=== PATIENT | male | born 1995 | race Caucasian/White ===

== ENCOUNTER 2019-11-30 11:44 | Emergency (ER) | payer OTHER, MEDICAID, SELFPAY ==
[2019-11-30 11:56] VITALS: BP 136/96; PULSE 85; RESP 18; TEMP 37.1; O2SAT 97; BMI 24.4
--- NOTE | 2019-11-30 12:09 | ED_ITS ---
HPI - Chest Pain <PATRICA Iverson - Last Filed: 11/30/19 13:27> General Chief Complaint: Chest Pain Stated Complaint: Heart Hurts Time Seen by Provider: 11/30/19 11:53 Source: patient Mode of arrival: Ambulatory Limitations: no limitations History of Present Illness HPI narrative: This is a 24 year male, smoker, presents to ED with nonradiating left lateral chest pain which initially started this morning at 10. Patient reports initially the pain started about 6 months ago when he was in assisted. Then, he had EKG and director of cardiac rehabilitation test done. Patient reports constant sharp pain deep inside his chest with short of breath. Patient denies cold sweats, nausea or vomiting. Patient reports nothing aggravates or improved pain. 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 Patient also reports he just return from [place] working 6 weeks under high stress and dangerous situation. He has been drinking heavy amount of hard liquor daily to cope with this but denies drinking alcohol today. Patient was offered Suboxone therapy while in assisted which she declined but now he is interested in therapy that can help him from drinking excessively or going back to using drugs. Related Data Previous Rx's Medication Instructions Recorded valacyclovir 1,000 mg PO Q12H #20 tab 12/21/16 Allergies Allergy/AdvReac Type Severity Reaction Status Date / Time No Known Drug Allergies Allergy Verified 11/30/19 12:04 Review of Systems <PATRICA Iverson - Last Filed: 11/30/19 13:27> Review of Systems Narrative: General: Denies fever, chills, fatigue, malaise, sweats. HEENT: Denies sinus pain, ear pain, sore throat, difficulty swallowing, dizziness. Respiratory: Denies (+) SOB and dyspnea, cough, wheezing, hemoptysis, sputum. Cardiovascular: The HPI Gastrointestinal: Denies nausea, vomiting, abdominal pain, diarrhea, c onstipation, melena. : Denies dysuria, frequency, incontinence, hematuria, urinary retention. Musculoskeletal: Denies weakness, joint pain or bony pain. Skin: Denies rash, skin lesions, or other. Neurologic: Denies weakness, headache, numbness, change in speech, confusion, seizures, incoordination. Psychiatric: No concerning psychosocial issues. 12-point review of systems is negative except for those stated above. Patient History <PATRICA Iverson - Last Filed: 11/30/19 13:27> Social History Smoking Status: Never smoker Smoking Status: Never smoker alcohol intake frequency: 3 or more drinks per day Alcohol type: hard liquor Substance Use Type: former substance user Exam <PATRICA Iverson - Last Filed: 11/30/19 13:27> Narrative Exam Narrative: GEN: Alert, oriented x 3, well appearing and nourished, tearful and anxious. Head: Normal cephalic, atraumatic. No scalp or temporal tenderness, palpable mass or rash. EYES: Pupils are equal, round, and reactive to light and accommodation. Extraocular muscles are intact bilaterally. There is no subconjunctival hemorrhage, exudate and sclera non-icteric. ENT: Hearing grossly intact. Mucous membrane moist, no mucosal lesion. Throat without erythema, tonsillar hypertrophy or exudate. Uvula in midline, airway patent. Neck: Trachea in midline. No JVD, non-tender without lymphadenopathy. No masses or thyroid megaly. Supple, non-tender and no meningeal signs. CARDIAC: Normal regular rate and rhythm without murmurs, gallops, or rubs. Quick transition from tachycardia to normal SR when crying and relaxing. No chest wall tenderness. No peripheral edema, cyanosis or pallor. Capillary refill is less than 2 seconds. RESPIRATORY: Lungs are clear to auscultate bilaterally. No cough, wheezes, rales, or rhonchi. No stridor, respiratory distress, increase work of breat felicita, or accessary muscle used. ABD: Abdomen soft, nontender and non-distended. No guarding or rebound tenderness to palpate. Bowel sounds are normal in all 4 quadrants. There is no palpable masses or organomegaly. EXT: Full painless ROM of all extremities with no loss of sensation, strength, effusion or edema. SKIN: Warm, dry, normal color for patient. No erythema, lesions or rash over visible areas. BACK: Nontender without deformity or crepitance. No flank tenderness. NEUROLOGICAL: Alert and oriented to place, time and person. Sensation and motor function intact bilaterally. No facial droops, dysphasia. PSYCHIATRIC: Good judgement and reason, without hallucinations, abnormal affect or abnormal behaviors during the examination. Frequently Anxious and tearful. Patient is not suicidal. Initial Vital Signs Initial Vital Signs: Vital Signs Temperature 98.8 F 11/30/19 11:56 Pulse Rate 85 11/30/19 11:56 Respiratory Rate 18 11/30/19 11:56 Blood Pressure 136/96 H 11/30/19 11:56 Pulse Oximetry 97 11/30/19 11:56 <Sharon Smith DO - Last Filed: 11/30/19 17:48> Initial Vital Signs Initial Vital Signs: Vital Signs Temperature 98.8 F 11/30/19 11:56 Pulse Rate 85 11/30/19 11:56 Respiratory Rate 18 11/30/19 11:56 Blood Pressure 136/96 H 11/30/19 11:56 Pulse Oximetry 97 11/30/19 11:56 Scores <CARLOS IversonP - Last Filed: 11/30/19 13:27> GCS L[place] coma scale eye opening: Spontaneous [place] coma scale verbal response: Orientated [place] coma scale motor response: Obey commands [place] coma scale total score: 15 HEART Score Heart Score history: Slightly Suspicious Heart Score EKG: Normal Heart Score Age: < 45 years old Heart Score risk factors: 1-2 risk factors Heart Score troponin: < or = to normal limit Heart Score Total: 1 Course <CARLOS IversonP - Last Filed: 11/30/19 13:27> Orders Ordered: ED Orders 11/30/19 11:50 EKG-12 Lead Routine 11/30/19 11:57 Complete Blood Count AUTO DIFF Stat Comprehensive Metabolic Panel Stat D Dimer Stat Lipase Stat Partial Thromboplastin Time Stat Prothrombin Time INR Stat Troponin & CK Cardiac Panel Stat 11/30/19 12:08 XR chest 1V Stat Discontinued Medications Sodium Chloride (Normal Saline 0.9%) 1,000 mls @ 999 mls/hr IV BOLUS ONE Stop: 11/30/19 13:09 Last Infusion: 11/30/19 13:13 Dose: 0 mls/hr Documented by: Admin: 11/30/19 12:29 Dose: 999 mls/hr Documented by: ERIC Pantoprazole Sodium (Protonix) 40 mg IV NOW ONE Stop: 11/30/19 12:09 Last Admin: 11/30/19 12:26 Dose: 40 mg Documented by: ERIC Vital Signs Vital signs: Vital Signs - 8 hr 11/30/19 11:56 11/30/19 13:15 Temperature 98.8 F 98.1 F Pulse Rate 85 87 Respiratory Rate 18 16 Blood Pressure 136/96 H 125/57 L Pulse Oximetry 97 100 <Sharon Smith DO - Last Filed: 11/30/19 17:48> Orders Ordered: ED Orders 11/30/19 11:50 EKG-12 Lead Routine 11/30/19 11:57 Complete Blood Count AUTO DIFF Stat Comprehensive Metabolic Panel Stat D Dimer Stat Lipase Stat Partial Thromboplastin Time Stat Prothrombin Time INR Stat Troponin & CK Cardiac Panel Stat 11/30/19 12:08 XR chest 1V Stat Discontinued Medications Sodium Chloride (Normal Saline 0.9%) 1,000 mls @ 999 mls/hr IV BOLUS ONE Stop: 11/30/19 13:09 Last Infusion: 11/30/19 13:13 Dose: 0 mls/hr Documented by: Admin: 11/30/19 12:29 Dose: 999 mls/hr Documented by: ERIC Pantoprazole Sodium (Protonix) 40 mg IV NOW ONE Stop: 11/30/19 12:09 Last Admin: 11/30/19 12:26 Dose: 40 mg Documented by: ERIC Vital Signs Vital signs: Vital Signs - 8 hr 11/30/19 11:56 11/30/19 13:15 Temperature 98.8 F 98.1 F Pulse Rate 85 87 Respiratory Rate 18 16 Blood Pressure 136/96 H 125/57 L Pulse Oximetry 97 100 MDM - Chest Pain <PATRICA Iverson - Last Filed: 11/30/19 13:27> Differential Diagnosis Differential diagnosis: Likely atypical chest pain, st elevation myocardial infarction, costochondritis and other (Pancreatitis, anxiety, PE, pneumonia) Medical Records Data Attestation: I reviewed the patient's medical records. Lab Data Attestation: I reviewed the patient's lab results. Result diagrams: 11/30/19 11:57 11/30/19 11:57 Labs: Lab Results 11/30/19 11/30/19 11/30/19 Range/Units 11:57 11:57 11:57 WBC 7.5 (4.5-11.0) X10^3/uL RBC 5.84 (4.5-5.9) X10^6/uL Hgb 18.6 H (13.5-17.5) g/dL Hct 52.7 (41-53) % MCV 90.2 (80-100) fL MCH 31.9 (26-34) PG MCHC 35.3 (30-36) % RDW 13.1 (11.6-14.8) % Plt Count 294 (150-400) X10^3/uL Neut % (Auto) 72.2 (50-75) % Lymph % (Auto) 18.0 L (25-40) % [place] % (Auto) 6.8 (3-14) % Eos % (Auto) 2.5 (2-4) % Baso % (Auto) 0.5 (0-2) % Neut # (Auto) 5400 (9426-6127) /uL Lymph # (Auto) 1400 (4060-3462) /uL [place] # (Auto) 500 (0-900) /uL Eos # (Auto) 200 (0-450) /uL Baso # (Auto) 0 (0-100) /uL PT 10.4 (10.1-12.7) SECONDS INR 0.9 (0.9-1.3) APTT 30 (26.4-36.2) SECONDS D-Dimer < 200 (<230) ng/mL Sodium 137 (137-145) mmol/L Potassium 4.3 (3.4-5.1) mmol/L Chloride 102 (98-107) mmol/L Carbon Dioxide 22 (22-32) mmol/L BUN 20 (9-20) mg/dL Creatinine 0.99 (0.66-1.25) mg/dL Estimated GFR > 60.0 (>60) mL/min BUN/Creatinine Ratio 20.2 (6-22) Glucose 112 H (70-100) mg/dL Calcium 9.6 (8.4-10.2) mg/dL Total Bilirubin 0.9 (0.2-1.3) mg/dL AST 40 (17-59) IU/L ALT 33 (<50) IU/L Alkaline Phosphatase 70 (38-126) U/L Total Creatine Kinase 201 H (55-170) U/L CK-MB (CK-2) 2.25 (<2.37) ng/mL CK-MB (CK-2) Rel Index 1.1 L (1.5-5.0) % Troponin I < 0.012 (0.01-0.034) ng/mL Total Protein 8.4 H (6.3-8.2) g/dL Albumin 5.1 H (3.5-5.0) g/dL Globulin 3.3 (1.7-4.1) g/dL Albumin/Globulin Ratio 1.5 (1.0-2.8) Lipase 105 (23-300) U/L Imaging Data Chest x-ray: Radiologist's Impression: [address] [address] XRay Report Signed Patient: Fariha Lundberg [facility]#: [id number] : 1995Acct:[id number] Age/Sex: 24 / MDate of Service: 11/30/19 Loc: ED Accession Number: [id number] Procedure: XR chest 1V Ordering Provider: Paul Vera PROCEDURE: XR CHEST 1V INDICATIONS: chest pain TECHNIQUE: One view of the chest was acquired. COMPARISON: [facility], , CHEST 2 VIEW, 03/26/2015, 17:27. FINDINGS: Surgical changes and devices: None. Lungs and pleura: Lungs are clear. No pleural effusions or pneumothorax. Mediastinum: Mediastinal contours appear normal. Heart size is normal. Bones and chest wall: No suspicious bony lesions. Overlying soft tissues appear unremarkable. IMPRESSION: No acute cardiopulmonary findings. Dictated by: No Walker M.D. on 11/30/2019 at 11:29 Approved by: No Walker M.D. on 11/30/2019 at 11:29 ECG Data Attestation: I personally reviewed and interpreted this ECG as follows: Prior ECG tracings: available for review Interpretation: Sinus rhythm rate at 91. Normal [place]. OK interval 152, QRS duration 91, QT/QTC 312/[address] changes MDM Narrative Medical decision making narrative: EKG is normal sinus rhythm with out ST changes. Chest x-ray without acute findings. Cardiac enzymes were negative. Stable H&H without leukocytosis. Normal coag and D-dimer. Normal lipase. No epigastric pain and normal physical exam. Heart score is 1. Patient was very anxious and tearful during exam stating is hoping to get help for substance abuse and addiction history. Patient was medicated with IV fluid normal saline and Protonix. Patient was able to sleep while waiting for the test results. He was easily aroused and states he is feeling much better at this time. It is less likely patient's chest pain from cardiac etiology and likely related to anxiety, stress, or GI irritation from heavy alcohol use. We discussed above getting help for addiction problem and patient is planning to contact reserve officer for Resource and help. Patient discharged to home with [facility] Resource contact information along [facility] and advised to stop/decrease alcohol used to cope with his stress. Patient verbalized understanding in agreement with the treatment plan. <Sharon Smith, DO - Last Filed: 11/30/19 17:48> Lab Data Labs: Lab Results 11/30/19 11/30/19 11/30/19 Range/Units 11:57 11:57 11:57 WBC 7.5 (4.5-11.0) X10^3/uL RBC 5.84 (4.5-5.9) X10^6/uL Hgb 18.6 H (13.5-17.5) g/dL Hct 52.7 (41-53) % MCV 90.2 (80-100) fL MCH 31.9 (26-34) PG MCHC 35.3 (30-36) % RDW 13.1 (11.6-14.8) % Plt Count 294 (150-400) X10^3/uL Neut % (Auto) 72.2 (50-75) % Lymph % (Auto) 18.0 L (25-40) % [place] % (Auto) 6.8 (3-14) % Eos % (Auto) 2.5 (2-4) % Baso % (Auto) 0.5 (0-2) % Neut # (Auto) 5400 (2099-0728) /uL Lymph # (Auto) 1400 (6283-5651) /uL [place] # (Auto) 500 (0-900) /uL Eos # (Auto) 200 (0-450) /uL Baso # (Auto) 0 (0-100) /uL PT 10.4 (10.1-12.7) SECONDS INR 0.9 (0.9-1.3) APTT 30 (26.4-36.2) SECONDS D-Dimer < 200 (<230) ng/mL Sodium 137 (137-145) mmol/L Potassium 4.3 (3.4-5.1) mmol/L Chloride 102 (98-107) mmol/L Carbon Dioxide 22 (22-32) mmol/L BUN 20 (9-20) mg/dL Creatinine 0.99 (0.66-1.25) mg/dL Estimated GFR > 60.0 (>60) mL/min BUN/Creatinine Ratio 20.2 (6-22) Glucose 112 H (70-100) mg/dL Calcium 9.6 (8.4-10.2) mg/dL Total Bilirubin 0.9 (0.2-1.3) mg/dL AST 40 (17-59) IU/L ALT 33 (<50) IU/L Alkaline Phosphatase 70 (38-126) U/L Total Creatine Kinase 201 H (55-170) U/L CK-MB (CK-2) 2.25 (<2.37) ng/mL CK-MB (CK-2) Rel Index 1.1 L (1.5-5.0) % Troponin I < 0.012 (0.01-0.034) ng/mL Total Protein 8.4 H (6.3-8.2) g/dL Albumin 5.1 H (3.5-5.0) g/dL Globulin 3.3 (1.7-4.1) g/dL Albumin/Globulin Ratio 1.5 (1.0-2.8) Lipase 105 (23-300) U/L Discharge Plan Departure Patient Disposition: Home Clinical Impression: Atypical chest pain, Anxiety Discharge Date/Time: 11/30/19 13:21 Instructions: DI for Atypical Chest Pain, DI for Anxiety -- Adult Activity Restrictions/Additional Instructions: You have been diagnosed with [atypical chest pain, anxiety from situational stress.]. What to do: *Take your medications as directed. You were medicated with Protonix to help with stomach acid in ED. You can take omeprazole which is [id number] medication. *Follow up with your primary care provider in 2-3 days, call for an appointment. Let them know you were seen in the ED and that we asked you to be seen in follow up. Please contact [facility] to set up a primary care physician. Please contact [facility] at [phone] to seek help and talk with your reserve officer as year planning to. *Return to ED if you have any new, worsening, or concerning symptoms, such as [worsening or different chest pain, breathing difficulty, cold sweats, nausea or vomiting, fever or any acute concerns]. Prescriptions: No Action valacyclovir 1,000 MG tablet 1,000 mg PO Q12H Qty: 20 RF: 0 Referrals: [facility] [Outside] <Sharon Smith DO - Last Filed: 11/30/19 17:48> Cosign ED Attending Stewart Attestation: I was immediately available in the department for consultation. Documentation has been reviewed. I agree with assessment and plan.
[2019-11-30 12:16] LABS: Add Manual Diff / Slide Review NO; Basophils Absolute Auto 0 /uL (0-100); Basophils Percent Auto 0.5 % (0-2); Eosinophils Absolute Auto 200 /uL (0-450); Eosinophils Percent Auto 2.5 % (2-4); Hematocrit 52.7 % (41-53); Hemoglobin 18.6 g/dL (13.5-17.5); Lymphocytes Absolute Auto 1400 /uL (1100-4500); Mean Corpuscular HGB Conc 35.3 % (30-36); Mean Corpuscular Hemoglobin 31.9 PG (26-34); Mean Corpuscular Volume 90.2 fL (80-100); Monocytes Absolute Auto 500 /uL (0-900); Monocytes Percent Auto 6.8 % (3-14); Neutrophils Absolute Auto 5400 /uL (1500-7000); Neutrophils Percent Auto 72.2 % (50-75); Platelet Count 294 X10^3/uL (150-400); Red Blood Cell Count 5.84 X10^6/uL (4.5-5.9); Red Cell Distribution Width 13.1 % (11.6-14.8); White Blood Cell Count 7.5 X10^3/uL (4.5-11.0)
[2019-11-30 12:19] LABS: Alanine Aminotransferase 33 IU/L (<50); Albumin 5.1 g/dL (3.5-5.0); Albumin Globulin Ratio 1.5 (1.0-2.8); Alkaline Phosphatase 70 U/L (38-126); Aspartate Aminotransferase 40 IU/L (17-59); BUN Creatinine Ratio 20.2 (6-22); Bilirubin Total 0.9 mg/dL (0.2-1.3); Blood Urea Nitrogen 20 mg/dL (9-20); Calcium 9.6 mg/dL (8.4-10.2); Carbon Dioxide 22 mmol/L (22-32); Chloride 102 mmol/L (98-107); Creatine Kinase 201 U/L (55-170); Estimated Glomerular Filt Rate > 60.0 mL/min (>60); Globulin 3.3 g/dL (1.7-4.1); Glucose 112 mg/dL (70-100); HEMOLYSIS 21 (0-50); Lipase 105 U/L (23-300); Potassium 4.3 mmol/L (3.4-5.1); Sodium 137 mmol/L (137-145); Total Protein 8.4 g/dL (6.3-8.2)
[2019-11-30 12:20] LABS: INR 0.9 (0.9-1.3); Prothrombin Time 10.4 SECONDS (10.1-12.7)
[2019-11-30 12:23] LABS: PTT Partial Thromboplastin Tim 30 SECONDS (26.4-36.2)
[2019-11-30 12:26] LABS: D Dimer < 200 ng/mL (<230)
[2019-11-30] MEDS: PANTOPRAZOLE 40 MG VIAL IV (12:26)
[2019-11-30] MEDS: SODIUM CHLORIDE 0.9% 1,000 ML 999 ML IV (12:29)
[2019-11-30 12:31] LABS: Troponin I < 0.012 ng/mL (0.01-0.034)
[2019-11-30 12:34] LABS: CKMB % Relative Index 1.1 % (1.5-5.0); Creatine Kinase MB 2.25 ng/mL (<2.37)
[2019-11-30 13:15] VITALS: BP 125/57; PULSE 87; RESP 16; TEMP 36.7; O2SAT 100
== END 2019-11-30 13:21 | disposition home or self-care (01) ==
PROVIDERS: Emergency Provider Nurse Practitioner Family; Family Provider Family Medicine; PCP Family Medicine
DX: R07.89 Other chest pain (principal); R06.02 Shortness of breath; F41.9 Anxiety disorder, unspecified
CPT/HCPCS: 36415; 71045; 80053; 82550; 82553; 83690; 84484; 85025; 85379; 85610; 85730; 93005; 96361; 96374; 99284; C9113

== ENCOUNTER → 2020-05-11 09:17 | Outpatient (CLI) | payer OTHER, MEDICAID, SELFPAY ==
--- NOTE | 2020-05-11 09:20 | DI.RAD.S_ITS ---
PROCEDURE: XR SKULL<4V INDICATIONS: Concussion, status post head trauma TECHNIQUE: 3 view(s) of the skull acquired. COMPARISON: None. FINDINGS: Bones: No fractures. No suspicious bony lesions. Visualized sinuses appear clear. Soft tissues: No soft tissue calcifications. No suspicious soft tissue densities. IMPRESSION: Negative examination. Dictated by: Ryan Drake M.D. on 05/11/2020 at 10:04 Approved by: Ryan Drake M.D. on 05/11/2020 at 10:05
--- NOTE | 2020-05-11 09:20 | DI.RAD.S_ITS ---
PROCEDURE: XR LUMBAR SPINE 2-3V INDICATIONS: Persistent lower back pain without radiculopathy TECHNIQUE: 3 views of the lumbar spine were acquired. COMPARISON: None. FINDINGS: Bones: No fracture. Multilevel degenerative endplate sclerosis and spurring. Diffuse facet arthropathy. Mild narrowing of the L5-S1 disc space. Mild straightening of the normal lordotic curvature. Soft tissues: Overlying bowel gas pattern is normal. No suspicious soft tissue calcifications. IMPRESSION: Mild spondylosis and diffuse facet arthropathy Dictated by: Ryan Drake M.D. on 05/11/2020 at 10:03 Approved by: Ryan Drake M.D. on 05/11/2020 at 10:04
== END ==
PROVIDERS: Family Provider Family Medicine; PCP Family Medicine; Referring Provider Family Medicine; Visit Provider Family Medicine
DX: S06.0X0A Concussion without loss of consciousness, initial encounter (principal); M54.5 Low back pain; M47.816 Spondylosis without myelopathy or radiculopathy, lumbar region; G89.29 Other chronic pain; X58.XXXA Exposure to other specified factors, initial encounter
CPT/HCPCS: 70250; 72100

== ENCOUNTER → 2020-05-26 15:27 | Outpatient (CLI) | payer OTHER, MEDICAID, SELFPAY ==
[2020-05-26 16:16] LABS: COVID19 -Nasal RAPID Negative (Negative)
== END ==
PROVIDERS: Family Provider Family Medicine; Referring Provider Internal Medicine; Visit Provider Internal Medicine
DX: Z20.822 Contact with and (suspected) exposure to COVID-19 (principal)
CPT/HCPCS: 87635; C9803

== ENCOUNTER → 2020-05-27 12:24 | Outpatient (CLI) | payer OTHER, MEDICAID, SELFPAY ==
--- NOTE | 2020-06-02 09:13 | PM.PFT.1 ---
Pulmonary Function Test Referral & Results Date Patient Seen: 05/27/20 Requesting provider: Carl Templeton Indication: Asthma Results: The spirometry demonstrates an FVC of 6.33 L which is 111% of predicted. The FEV1 was measured at 4.39 L which is 94% of predicted. The FEV1/FVC ratio was 69 which is 83% of predicted. Following the administration of bronchodilator there was a 19% improvement in FEF 25-75% but otherwise no notable change. Lung volumes show an SVC of 6.27 L which is 114% of predicted. The diffusing capacity was measured at 40.52 which is 120% of predicted. The maximum voluntary ventilation was normal Interpretation: This study demonstrates probably normal spirometry. There is evidence of some benefit in small airway flow after bronchodilator as above based on reduction FEF 25-75%. Patient's diffusing capacity is supranormal which is consistent with a diagnosis of asthma, but overall shape of flow volume loop is not consistent with significant obstructive lung disease nor is the FEV1 or the FEV1/FVC ratio as noted above Clinical correlation suggested
== END ==
PROVIDERS: Family Provider Family Medicine; Referring Provider Family Medicine; Visit Provider Family Medicine
DX: J45.909 Unspecified asthma, uncomplicated (principal); Z87.891 Personal history of nicotine dependence
CPT/HCPCS: 94060; 94726; 94729

== ENCOUNTER → 2020-07-01 17:34 | Outpatient (CLI) | payer OTHER, MEDICAID, SELFPAY ==
--- NOTE | 2020-07-01 17:39 | DI.RAD.S_ITS ---
PROCEDURE: XR TOE LT MIN 2V INDICATIONS: left great toe pain TECHNIQUE: 3 views of the great toe(s) acquired. COMPARISON: None. FINDINGS: Bones: No fractures or dislocations. No suspicious bony lesions. Mild 1st MTP degenerative change. Soft tissues: No suspicious soft tissue densities. IMPRESSION: Mild 1st MTP degenerative change. No evidence acute bony abnormality of the left great toe Dictated by: Peter Chamberlain M.D. on 07/01/2020 at 21:33 Approved by: Peter Chamberlain M.D. on 07/01/2020 at 21:33
== END ==
PROVIDERS: Family Provider Family Medicine; PCP Family Medicine; Referring Provider Family Medicine; Visit Provider Family Medicine
DX: M21.612 Bunion of left foot (principal); M79.675 Pain in left toe(s)
CPT/HCPCS: 73660

== ENCOUNTER → 2020-07-03 13:42 | Outpatient (CLI) | payer OTHER, MEDICAID, SELFPAY ==
[2020-07-03 14:32] LABS: Add Manual Diff / Slide Review NO; Basophils Absolute Auto 0 /uL (0-100); Basophils Percent Auto 0.4 % (0-2); Eosinophils Absolute Auto 400 /uL (0-450); Eosinophils Percent Auto 4.6 % (2-4); Hematocrit 45.6 % (41-53); Lymphocytes Absolute Auto 1400 /uL (1100-4500); Mean Corpuscular HGB Conc 35.1 % (30-36); Mean Corpuscular Hemoglobin 31.3 PG (26-34); Mean Corpuscular Volume 89.1 fL (80-100); Monocytes Absolute Auto 400 /uL (0-900); Monocytes Percent Auto 4.4 % (3-14); Neutrophils Absolute Auto 6100 /uL (1500-7000); Neutrophils Percent Auto 73.6 % (50-75); Platelet Count 244 X10^3/uL (150-400); Red Blood Cell Count 5.11 X10^6/uL (4.5-5.9); Red Cell Distribution Width 12.4 % (11.6-14.8); White Blood Cell Count 8.3 X10^3/uL (4.5-11.0)
[2020-07-03 14:46] LABS: HEMOLYSIS < 15 (0-50); Iron 125 ug/dL (49-181)
[2020-07-03 14:47] LABS: Alanine Aminotransferase 47 IU/L (<50); Albumin 5.3 g/dL (3.5-5.0); Albumin Globulin Ratio 1.8 (1.0-2.8); Alkaline Phosphatase 49 U/L (38-126); Aspartate Aminotransferase 43 IU/L (17-59); BUN Creatinine Ratio 21.8 (6-22); Bilirubin Total 0.4 mg/dL (0.2-1.3); Blood Urea Nitrogen 24 mg/dL (9-20); Calcium 10.1 mg/dL (8.4-10.2); Carbon Dioxide 31 mmol/L (22-32); Chloride 99 mmol/L (98-107); Estimated Glomerular Filt Rate > 60.0 mL/min (>60); Globulin 2.9 g/dL (1.7-4.1); Glucose 92 mg/dL (70-100); HEMOLYSIS < 15 (0-50); Sodium 139 mmol/L (137-145); Total Protein 8.2 g/dL (6.3-8.2)
[2020-07-03 14:57] LABS: Percent Iron Saturation 33 % (20-50); Total Iron Binding Capacity 384 ug/dL (261-462); Transferrin 307 mg/dL (206-381)
[2020-07-03 15:22] LABS: Ferritin 81 ng/mL (18-464)
[2020-07-04 07:47] LABS: HBsAg Screen Negative (Negative); Hepatitis A Antibody IgM Negative (Negative); Hepatitis B Core Antibody IgM Negative (Negative); Hepatitis C Antibody <0.1 s/co ratio (0.0-0.9); RPR Screen Non Reactive (Non Reactive)
[2020-07-05 01:45] LABS: Chlamydia trachomatis NAA Negative (Negative); Neisseria gonorrhoeae NAA Negative (Negative)
[2020-07-05 17:00] LABS: HIV 1 & 2 Ab/Ag 4th Gen Combo NEGATIVE (NEGATIVE)
== END ==
PROVIDERS: Family Provider Family Medicine; PCP Family Medicine; Referring Provider Family Medicine; Visit Provider Family Medicine
DX: D58.2 Other hemoglobinopathies (principal); J45.909 Unspecified asthma, uncomplicated; E88.09 Other disorders of plasma-protein metabolism, not elsewhere classified; Z11.3 Encounter for screening for infections with a predominantly sexual mode of transmission; L21.0 Seborrhea capitis
CPT/HCPCS: 36415; 80053; 80074; 82728; 83540; 83550; 85025; 86592; 87389; 87491; 87591

== ENCOUNTER 2020-07-11 13:01 | Emergency (ER) | payer OTHER, MEDICAID, SELFPAY ==
[2020-07-11 13:05] VITALS: BP 122/65; PULSE 83; RESP 18; O2SAT 100; BMI 24.3
--- NOTE | 2020-07-11 13:10 | PC.NURSE ---
finishing triage and pt states his heart doesn't feel right. It's beating weird. ordered ekg.
--- NOTE | 2020-07-11 14:03 | DI.RAD.S_ITS ---
PROCEDURE: XR HAND RT MIN 3V INDICATIONS: puncture to right palm TECHNIQUE: 3 views of the hand(s) acquired. COMPARISON: [facility], , HAND 3V LEFT, 07/30/2011, 19:04. FINDINGS: Bones: No fractures or dislocations. Carpal bones are normally aligned. No suspicious bony lesions. Soft tissues: No suspicious soft tissue calcifications. No radiopaque foreign body. IMPRESSION: No radiopaque foreign body. Dictated by: Bib Gloria M.D. on 07/11/2020 at 13:24 Approved by: Bib Gloria M.D. on 07/11/2020 at 13:28
[2020-07-11 14:06] VITALS: TEMP 37.2
--- NOTE | 2020-07-11 16:12 | ED_ITS ---
HPI - Extremity Injury (Upper) General Chief Complaint: Extremity Injury, Upper Stated Complaint: Fall, Puncture Wound To Rt Wrist Time Seen by Provider: 07/11/20 16:12 Source: patient and family (father at bedside) Mode of arrival: Ambulatory Limitations: no limitations History of Present Illness HPI narrative: This a 24-year-old male comes emergency department after a ground level fall on outstretched hand. Patient fell onto a screw sticking out piece of sheet rock. Patient father states it was approximately an inch to inch and half in length patient has a puncture wound to his right palmar side of his hand in the metacarpal region patient states he has pain at the site. He has increased pain with movement has full range of motion. He has increased pain particularly with movement of his thumb with flexion and extension. He does not have any numbness, or loss of sensation. He does not appreciate any weakness at this time. He does have some swelling to the palmar side the hand. Patient denies other medical issues besides a rash which he is currently on steroids for. He has only had 2 days of prednisone he is unsure of the exact dosage but states he has 3 days left. He does not take any other medications regularly he denies any prior surgeries. He had suture repair on his other wrist in the past. Patient is quite concerned about any tendon injury and also states that he is planning to [employer] and dineout starting in September and is concerned that he could develop issues while he is in [place]. Related Data Previous Rx's Medication Instructions Recorded valacyclovir 1,000 mg PO Q12H #20 tab 12/21/16 hydroxyzine HCl 10 mg tablet 10 mg PO TID PRN #60 tab 07/01/20 prednisone 50 mg tablet 50 mg PO DAILY #5 tab 07/01/20 doxycycline hyclate 100 mg PO BID #20 tab 07/11/20 Allergies Allergy/AdvReac Type Severity Reaction Status Date / Time bee venom protein (honey bee) Allergy Intermediate swelling Verified 07/01/20 16:04 and hives Review of Systems Review of Systems ROS Unobtainable: All systems reviewed & are unremarkable except as noted in HPI and below Patient History Medical History Asthma (~1999) Burn Chicken pox (~1999) Chronic back pain (~2019) Chronic cough (~2014) Concussion Elevated blood protein Elevated hemoglobin Foot pain (~2019) Fracture (~2020) Generalized anxiety disorder (~2019) Herpes (~2014) History of bipolar disorder Low back pain Sprain of left great toe Family History (Updated 05/16/20 @ 21:10 by Chika Hansen) Mother Hypertension Grandfather History of heart disease Grandmother Influenza Grandfather Cancer Grandmother Cancer Social History Smoking Status: Never smoker substance use type: marijuana Smoking Status: Never smoker alcohol intake frequency: other Alcohol type: hard liquor Substance Use Type: former substance user Exam Narrative Exam Narrative: GENERAL: Alert and oriented x three, well-nourished male, patient is in mild distress. Patient does express anxiety and frustration over his weight as well as concern about complications from his injury. HEENT: Head normocephalic, atraumatic, EOMI, pupils reactive, face symmetric, moist mucous membranes NECK: Supple, full range of motion CARDIOVASCULAR: Regular rate and rhythm without murmurs, rubs or gallops. RESPIRATORY: Breath sounds equal bilaterally, no wheezes rales or rhonchi. EXTREMITIES: Normal range of motion, no clubbing. Patient has a puncture wound over the palmar side of his hand just adjacent to his wrist. It is approximately a quarter to 0.5 cm in size. No foreign body palpated. There is no active bleeding at this time. Patient has normal sensation throughout. He does have some swelling of the palm. No obvious ecchymosis at this time. Normal sensation throughout all 5 fingers. Cap refills less than 2 seconds in all 5 fingers. Patient is able to make the okay sign and tap his thumb to all 5 fingers. He has full flexion extension of his wrist as well as side bending and rotation. Patient has normal strength 2+ radial pulse. He does complain of some pain over the 3rd and 4th metacarpal region on the dorsum of the hand with palpation but has no other bony tenderness appreciated. Neurovascularly intact NEUROLOGICAL: Cranial nerves II through XII grossly intact. Moving all extremities SKIN: Warm, dry, no petechiae, no rashes or lesions. Initial Vital Signs Initial Vital Signs: Vital Signs Pulse Rate 83 07/11/20 13:05 Respiratory Rate 18 07/11/20 13:05 Blood Pressure 122/65 07/11/20 13:05 Pulse Oximetry 100 07/11/20 13:05 Course Orders Ordered: ED Orders 07/11/20 13:10 EKG-12 Lead Stat 07/11/20 14:03 XR hand RT min 3V Stat Discontinued Medications Doxycycline Hyclate (Doxycycline Hyclate 100 Mg Tablet) 100 mg PO NOW ONE Stop: 07/11/20 16:25 Last Admin: 07/11/20 16:36 Dose: 100 mg Documented by: MARILY Ibuprofen (Ibuprofen 400 Mg Tablet) 800 mg PO NOW ONE Stop: 07/11/20 16:25 Last Admin: 07/11/20 16:37 Dose: 800 mg Documented by: MARILY Vital Signs Vital signs: Vital Signs - 8 hr 07/11/20 13:05 07/11/20 14:06 Temperature 99.0 F Pulse Rate 83 Respiratory Rate 18 Blood Pressure 122/65 Pulse Oximetry 100 MDM - Extremity Injury (Upper) Imaging Data Extremity x-ray #1: Radiologist's Impression: [address] [id number] ReportSigned Patient: Fariha Lundberg [facility]#: [id number]: 1995Acct:[id number]/Sex: 24 / MDate of Service: 07/11/20Loc: EDAccession Number: [id number] Procedure: XR hand RT min 3V Ordering Provider: Sharon Smith D.O. PROCEDURE: XR HAND RT MIN 3V INDICATIONS: puncture to right palm TECHNIQUE: 3 views of the hand(s) acquired. COMPARISON: [facility], HAND 3V LEFT, 07/30/2011, 19:04. FINDINGS: Bones: No fractures or dislocations. Carpal bones are normally aligned. No suspicious bony lesions. Soft tissues: No suspicious soft tissue calcifications. No radiopaque foreign body. IMPRESSION: No radiopaque foreign body. Dictated by: Bib Gloria M.D. on 07/11/2020 at 13:24 Approved by: Bib Gloria M.D. on 07/11/2020 at 13:28 ECG Data Attestation: I personally reviewed and interpreted this ECG as follows: Prior ECG tracings: available for review Interpretation: Sinus rhythm rate 80, MO interval 160 QRS 86 and QTC 385. No acute ST elevation or depression is appreciated. Patient has prior from 11/08 which appears similar to today's. MDM Narrative Medical decision making narrative: 24-year-old male comes with a puncture wound to the right palmar/wrist region. Patient wound was cleansed here in the department. Patient had x-ray which shows no foreign body and no bony injury appreciated. Patient was started on oral antibiotics as the puncture wound. He had uncovered hands when this occurred. Patient is very concerned about possible complications or tendon injury. On his clinical exam my suspicion for injury to the tendon is low he has full range of motion with good muscle strength and sensation throughout his hand, wrist and forearm. Patient does not have any other injuries. He is currently on a steroid we discussed the risk versus benefits of stopping versus continuing that at this time. Patient elects to continue his steroid but is aware that this will cause of immunosuppression. Patient is accompanied by his father wound care directions were discussed. We did discuss signs and symptoms to watch for particularly for infection as he is higher risk as it is a puncture wound. Patient also expresses frustration with his stay and feels staff has been minimizing his concerns today. All questions answered. Patient states he has ibuprofen 800mg at home. Return precautions discussed. Discharge Plan Departure Patient Disposition: Home Clinical Impression: Puncture wound of hand Qualifiers: Encounter type: initial encounter Laterality: right Instructions: DI for Puncture Wound Activity Restrictions/Additional Instructions: Follow up with your physician in in the next week if you are not having improvement in your symptoms. Take antibiotics until gone. [facility] You may take ibuprofen up to 800 mg every 8 hours and or Tylenol up to a 1000 mg every 8 hours. Wound Care: Keep wound(s) clean and dry. Wash daily with soap and water only twice daily. Pat dry. Keep area covered and clean when working. Do not use over the counter products (alcohol or peroxide)on the wounds unless instructed by a physician. If wound condition worsens (increased/expanding redness, developing fluid blisters, or worsening pain), either contact your doctor for an urgent re- assessment , or return to the Emergency Department. Return to the Emergency Department for any new or worsening symptoms. Return if fever greater than 100.4 Fahrenheit, increased swelling, increasing pain, new weakness, numbness, loss of sensation, color change of your hand or fingers or worsening symptoms such as increased discharge or spreading redness. Prescriptions: New doxycycline hyclate 100 mg tablet 100 mg PO BID Qty: 20 RF: 0 No Action valacyclovir 1,000 MG tablet 1,000 mg PO Q12H Qty: 20 RF: 0 prednisone 50 mg tablet 50 mg PO DAILY Qty: 5 RF: 0 hydroxyzine HCl 10 mg tablet 10 mg PO TID PRN (Reason: anxiety) Qty: 60 RF: 0 Referrals: Edgar Mensah MD [Primary Care Provider] -
[2020-07-11] MEDS: DOXYCYCLINE HYCLATE 100 MG TABLET PO (16:36)
[2020-07-11] MEDS: IBUPROFEN 400 MG TABLET 800 MG PO (16:37)
--- NOTE | 2020-07-11 16:58 | PC.NURSE ---
pt rt palm has puncture, pt stated a nail, now explained it was a screw. he took it out immediately.
== END 2020-07-11 16:55 | disposition home or self-care (01) ==
PROVIDERS: Emergency Provider Emergency Medicine; Family Provider Family Medicine; PCP Family Medicine
DX: S61.431A Puncture wound without foreign body of right hand, initial encounter (principal); W18.30XA Fall on same level, unspecified, initial encounter
CPT/HCPCS: 73130; 93005; 99283

== ENCOUNTER 2021-12-27 22:50 | Emergency (ER) | payer OTHER, MEDICAID, SELFPAY ==
[2021-12-27 23:14] VITALS: BP 135/93; PULSE 68; RESP 17; TEMP 37; O2SAT 100; BMI 23.7
[2021-12-27] MEDS: PANTOPRAZOLE 40 MG VIAL IV (23:24)
[2021-12-27] MEDS: ONDANSETRON 4 MG/2 ML INJ IV (23:24)
[2021-12-27] MEDS: SODIUM CHLORIDE 0.9% 1,000 ML 1000 ML IV (23:25)
--- NOTE | 2021-12-27 23:32 | PC.NURSE ---
Pt endorses smoking marijuana all the time.
[2021-12-27 23:49] LABS: Alanine Aminotransferase 23 IU/L (<50); Albumin 5.3 g/dL (3.5-5.0); Albumin Globulin Ratio 1.5 (1.0-2.8); Alkaline Phosphatase 51 U/L (38-126); Aspartate Aminotransferase 31 IU/L (17-59); BUN Creatinine Ratio 14.4 (6-22); Bilirubin Total 0.7 mg/dL (0.2-1.3); Blood Urea Nitrogen 14 mg/dL (9-20); Calcium 10.3 mg/dL (8.4-10.2); Carbon Dioxide 22 mmol/L (22-32); Chloride 101 mmol/L (98-107); Estimated Glomerular Filt Rate > 60 mL/min (>60); Globulin 3.5 g/dL (1.7-4.1); Glucose 101 mg/dL (70-100); HEMOLYSIS 17 (0-50); Lipase 609 U/L (23-300); Magnesium 1.8 mg/dL (1.6-2.3); Potassium 3.6 mmol/L (3.4-5.1); Sodium 140 mmol/L (137-145); Total Protein 8.8 g/dL (6.3-8.2)
[2021-12-27 23:52] LABS: COVID19 -Nasal RAPID Negative (Negative)
[2021-12-28 00:01] LABS: Add Manual Diff / Slide Review NO; Basophils Absolute Auto 100 /uL (0-100); Basophils Percent Auto 0.3 % (0-2); Eosinophils Absolute Auto 100 /uL (0-450); Eosinophils Percent Auto 0.3 % (2-4); Hematocrit 47.5 % (41-53); Hemoglobin 17.1 g/dL (13.5-17.5); Lymphocytes Absolute Auto 900 /uL (1100-4500); Lymphocytes Percent Auto 5.8 % (25-40); Mean Corpuscular Hemoglobin 30.8 PG (26-34); Mean Corpuscular Volume 85.6 fL (80-100); Monocytes Absolute Auto 600 /uL (0-900); Monocytes Percent Auto 3.8 % (3-14); Neutrophils Absolute Auto 14700 /uL (1500-7000); Neutrophils Percent Auto 89.8 % (50-75); Platelet Count 285 X10^3/uL (150-400); Red Blood Cell Count 5.55 X10^6/uL (4.5-5.9); Red Cell Distribution Width 12.7 % (11.6-14.8); White Blood Cell Count 16.4 X10^3/uL (4.5-11.0)
--- NOTE | 2021-12-28 00:12 | DI.US.S_ITS ---
PROCEDURE: US ABDOMEN LIMITED INDICATIONS: PAIN; N/V TECHNIQUE: Real-time focused scanning was performed of the abdomen, with image documentation. COMPARISON: None. FINDINGS: The liver is normal in size and echogenicity. Gallbladder demonstrates no stones, wall thickening, or pericholecystic fluid. No intra or extrahepatic biliary ductal dilatation. The pancreas was not well visualized due to bowel gas. IMPRESSION: 1. No evidence of cholelithiasis or cholecystitis. Dictated by: Jas Louis M.D. on 12/28/2021 at 1:49 Approved by: Jas Louis M.D. on 12/28/2021 at 1:50
[2021-12-28] MEDS: HALOPERIDOL 5 MG/ML VIAL IV (00:17)
[2021-12-28] MEDS: SODIUM CHLORIDE 0.9% 1,000 ML 1000 ML IV (00:18)
[2021-12-28 00:23] VITALS: PULSE 70; RESP 17; O2SAT 99
--- NOTE | 2021-12-28 00:25 | PC.NURSE ---
Pt reports continued abdominal pain and nausea, stating my stomach is just so fucked man repeatedly. Provider notified of pt condition.
--- NOTE | 2021-12-28 00:34 | ED_ITS ---
HPI - Nausea/Vomiting/Diarrhea General Chief complaint: Nausea/Vomiting/Diarrhea Stated complaint: can't stop vomiting Time Seen by Provider: 12/27/21 23:10 Source: patient Mode of arrival: Ambulatory History of Present Illness HPI Narrative: 26M daily smoker and user of cannabis presents with his significant other and a chief complaint of multiple episodes of vomiting over the course of the day and generalized abdominal pain. He states he has not been able to keep anything down for the past few hours and is writhing in pain. He is had no fever or chills. He denies any change in medications or diet, but does admit he had very little to eat over the course of the day and then upon getting home from work he had a few Warm alcoholic sitters and symptoms started soon thereafter He states this has happened multiple occasions in the past. He has no fever or chills and denies any chest pain or shortness of breath. His pain is made worse by eating or drinking as well as moving Related Data Previous Rx's Medication Instructions Recorded valacyclovir 1 gram tablet 1,000 mg PO Q12H #20 tabs 12/21/16 hydroxyzine HCl 10 mg tablet 10 mg PO TID PRN anxiety #60 tabs 07/01/20 prednisone 50 mg tablet 50 mg PO DAILY #5 tabs 07/01/20 doxycycline hyclate 100 mg tablet 100 mg PO BID #20 tabs 07/11/20 hydrocodone 5 mg-acetaminophen 325 1 tab PO Q4-6H PRN pain #10 tabs 12/28/21 mg tablet ondansetron 4 mg disintegrating 4 mg PO TID-QID PRN nausea and 12/28/21 tablet vomiting #10 tabs pantoprazole 40 mg tablet,delayed 40 mg PO DAILY #30 tabs 12/28/21 release (Protonix) Allergies Allergy/AdvReac Type Severity Reaction Status Date / Time bee venom protein (honey bee) Allergy Intermediate swelling Verified 12/27/21 23:16 and hives Review of Systems Review of Systems Narrative: GENERAL: Denies chills, fatigue, malaise, fever, sweats. HEENT: Denies sinus pain, ear pain, sore throat, difficulty swallowing, dizz iness. RESPIRATORY: Denies dyspnea, cough, wheezing, hemoptysis, sputum. CARDIOVASCULAR: Denies chest pain, palpitations, orthopnea, edema, GASTROINTESTINAL: See HPI : Denies dysuria, frequency, incontinence, hematuria, urinary retention. MUSCULOSKELETAL: denies weakness, joint pain, or bony pain SKIN: Denies rash, skin lesions, or other NEUROLOGIC: Denies weakness, headache, numbness, change in speech, confusion, seizures, incoordination. PSYCHIATRIC: No concerning psychosocial issues. 12 point review of systems is negative except for those stated above Patient History Medical History Asthma (~1999) Burn Chicken pox (~1999) Chronic back pain (~2019) Chronic cough (~2014) Concussion Elevated blood protein Elevated hemoglobin Foot pain (~2019) Fracture (~2020) Generalized anxiety disorder (~2019) Herpes (~2014) History of bipolar disorder Low back pain Sprain of left great toe Family History Mother Hypertension Grandfather History of heart disease Grandmother Influenza Grandfather Cancer Grandmother Cancer Social History Smoking Status: Never smoker substance use type: marijuana Smoking Status: Never smoker alcohol intake frequency: other Alcohol type: hard liquor Substance Use Type: former substance user Exam Narrative Exam Narrative: GENERAL: [26] year old patient appears stated age. Well-developed patient, in obvious distress, holding an emesis bag HEAD: Atraumatic. Normocephalic. EYES: Pupils equal round and reactive. Extraocular motions intact. No scleral icterus. No injection or drainage. ENT: Nose without bleeding, purulent drainage. Throat without erythema, tonsillar hypertrophy or exudate. Airway patent. NECK: Trachea midline. Non tender CARDIOVASCULAR: Regular rate and rhythm without murmurs, gallops, or rubs. RESPIRATORY: Clear to auscultation. Breath sounds equal bilaterally. No wheezes, rales, or rhonchi. GASTROINTESTINAL: Abdomen soft, generalized tenderness, perhaps worsening epigastrium, no distention, bowel sounds present in all 4 quadrants EXTREMITIES: No edema or joint tenderness. BACK: Nontender without deformity or crepitance. No flank tenderness. NEURO: AOx3. SKIN: No rash or erythema of visible areas Initial Vital Signs Initial Vital Signs: Vital Signs Temperature 98.6 F 12/27/21 23:14 Pulse Rate 68 12/27/21 23:14 Respiratory Rate 17 12/27/21 23:14 Blood Pressure 135/93 H 12/27/21 23:14 Pulse Oximetry 100 12/27/21 23:14 Oxygen Delivery Method 12/27/21 23:14 Course Orders Ordered: ED Orders 12/27/21 23:24 COVID19 -Nasal RAPID/Pre-Proc Stat Complete Blood Count AUTO DIFF Stat Comprehensive Metabolic Panel Stat Lipase Stat Magnesium Stat 12/28/21 00:12 US abdomen limited Stat Discontinued Medications Hydrocodone Bitart/Acetaminophen (Hydrocodone/Acet 5/325 Prepack) 1 bottle MISC SEEINSTR ONE Stop: 12/28/21 02:05 Last Admin: 12/28/21 02:15 Dose: 1 bottle Documented By: PTARICE Haloperidol (Haloperidol 5 Mg/Ml Vial) 5 mg IV NOW ONE Stop: 12/28/21 00:13 Last Admin: 12/28/21 00:17 Dose: 5 mg Documented By: LAZARA Hydromorphone HCl (Hydromorphone 0.5 Mg Inj) 0.5 mg IV NOW ONE Stop: 12/28/21 00:32 Last Admin: 12/28/21 00:37 Dose: 0.5 mg Documented By: EB Sodium Chloride (Normal Saline 0.9%) 1,000 mls @ 1,000 mls/hr IV BOLUS ONE Stop: 12/28/21 00:11 Last Infusion: 12/28/21 00:25 Dose: 0 mls/hr Documented By: Admin: 12/27/21 23:25 Dose: 1,000 mls/hr Documented By: EB Sodium Chloride (Normal Saline 0.9%) 1,000 mls @ 1,000 mls/hr IV BOLUS ONE Stop: 12/28/21 01:12 Last Infusion: 12/28/21 01:37 Dose: 0 mls/hr Documented By: Admin: 12/28/21 00:18 Dose: 1,000 mls/hr Documented By: EB Ondansetron HCl (Ondansetron 4 Mg/2 Ml Inj) 4 mg IV NOW ONE Stop: 12/27/21 23:13 Last Admin: 12/27/21 23:24 Dose: 4 mg Documented By: LAZARA Ondansetron HCl (Ondansetron 4 Mg Odt Prepack) 1 bottle MISC SEEINSTR ONE Stop: 12/28/21 02:05 Last Admin: 12/28/21 02:15 Dose: 1 bottle Documented By: PATRICE Pantoprazole Sodium (Pantoprazole 40 Mg Vial) 40 mg IV NOW ONE Stop: 12/27/21 23:13 Last Admin: 12/27/21 23:24 Dose: 40 mg Documented By: LAZARA Reevaluation(s) Reevaluation #1: Minimal improvement in nausea (though no vomiting) after initial round of medications, Reevaluation #2: Patient has had significant improvement after Haldol and Dilaudid. He is tolerating orals and pain is well controlled Vital Signs Vital signs: Vital Signs - 8 hr 12/27/21 23:14 12/28/21 00:23 12/28/21 01:00 Temperature 98.6 F Pulse Rate 68 70 71 Respiratory Rate 17 17 16 Blood Pressure 135/93 H 116/67 Pulse Oximetry 100 99 97 Oxygen Delivery Method Room Air Room Air Room Air 12/28/21 02:24 Temperature Pulse Rate 80 Respiratory Rate 18 Blood Pressure 124/64 Pulse Oximetry 99 Oxygen Delivery Method Room Air MDM - Nausea/Vomiting/Diarrhea Lab Data Result diagrams: 12/27/21 23:24 12/27/21 23:24 Labs: Lab Results 12/27/21 12/27/21 12/27/21 Range/Units 23:24 23:24 23:24 WBC 16.4 H (4.5-11.0) X10^3/uL RBC 5.55 (4.5-5.9) X10^6/uL Hgb 17.1 (13.5-17.5) g/dL Hct 47.5 (41-53) % MCV 85.6 (80-100) fL MCH 30.8 (26-34) PG MCHC 36.0 (30-36) % RDW 12.7 (11.6-14.8) % Plt Count 285 (150-400) X10^3/uL Neut % (Auto) 89.8 H (50-75) % Lymph % (Auto) 5.8 L (25-40) % Burnet % (Auto) 3.8 (3-14) % Eos % (Auto) 0.3 L (2-4) % Baso % (Auto) 0.3 (0-2) % Neut # (Auto) 18560 H (2326-0563) /uL Lymph # (Auto) 900 L (1855-4274) /uL Burnet # (Auto) 600 (0-900) /uL Eos # (Auto) 100 (0-450) /uL Baso # (Auto) 100 (0-100) /uL Sodium 140 (137-145) mmol/L Potassium 3.6 (3.4-5.1) mmol/L Chloride 101 (98-107) mmol/L Carbon Dioxide 22 (22-32) mmol/L BUN 14 (9-20) mg/dL Creatinine 0.97 (0.66-1.25) mg/dL Estimated GFR > 60 (>60) mL/min BUN/Creatinine Ratio 14.4 (6-22) Glucose 101 H (70-100) mg/dL Calcium 10.3 H (8.4-10.2) mg/dL Magnesium 1.8 (1.6-2.3) mg/dL Total Bilirubin 0.7 (0.2-1.3) mg/dL AST 31 (17-59) IU/L ALT 23 (<50) IU/L Alkaline Phosphatase 51 (38-126) U/L Total Protein 8.8 H (6.3-8.2) g/dL Albumin 5.3 H (3.5-5.0) g/dL Globulin 3.5 (1.7-4.1) g/dL Albumin/Globulin Ratio 1.5 (1.0-2.8) Lipase 609 H (23-300) U/L SARS-CoV-2 (PCR) Negative (Negative) Imaging Data US - abdomen: Radiologist's Impression: ? Chart Viewer Diagnostics Subcategory All Activity ??:?? All Time ??:?? All Subcategories Filter Laboratory Imaging Microbiology Pathology Blood Bank Tests Cardiovascular Other Specialty DATE TYPE STATUS REF RANGE/AUTHOR Hx Today 00:12 Abdomen Ultrasound Signed Jas Louis 07/11/20 14:03 Hand X-Ray Signed Bib Gloria 07/01/20 17:39 Toe X-Ray Signed Peter Chamberlain 05/27/20 15:11 PFT Result ? 05/27/20 14:59 PFT Result ? 05/11/20 09:20 Skull X-Ray Signed Ryan Drake 05/11/20 09:20 Skull X-Ray Cancelled 05/11/20 09:20 Lumbar Spine X-Ray Signed Ryan Drake 05/11/20 09:20 Lumbar Spine X-Ray Cancelled 11/30/19 12:08 Chest X-Ray Signed No Walker Faris M ED 26, M?1995 MRN#? [id number] [facility] ER,?[facility] ED??R04?? 180.34cm 77.111kg BMI: 23.7kg/m? Nausea/Vomiting/Diarrhea Acc#? [id number] Resus Status Not Ordered No Hx Avail Special Indicators PrimaryCare Pt Dismssed/Clinic Home Meds Not Confirmed Prescription Monitoring Program MEDICATIONS (INSTRUCTIONS) LAST TAKEN Active ??doxycycline hyclate ??100 mgPOBID#20 tabs ??hydroxyzine HCl 10 mg tablet ??10 mgPOTIDPRNanxiety#60 tabs ??prednisone 50 mg tablet ??50 mgPODAILY#5 tabs ??valacyclovir ??1,000 [id number]#20 tabs Allergies bee venom protein (honey bee) swelling and hives Problems ? ONSET Sprain of left great toe Elevated blood protein Elevated hemoglobin History of hearing problem Chronic cough ~2014 Allergies ~1999 Abnormal chest xray ~2019 Substance abuse ~2019 PTSD (post-traumatic stress disorder) Personality disorder History of bipolar disorder Foot pain ~2020 Chronic back pain ~2020 Asthma ~2000 Generalized anxiety disorder ~2020 Low back pain Concussion Burn Laceration of left wrist Heroin withdrawal No known health problems 02/15/12 Vital Signs Today 01:00 BP 116/67? Pulse 71? Resp 16? O2 Sat 97? Delivery Room Air? Diagnostics Reports Fariha Lundberg??26??M??1995 ? Allergy/Adv: bee venom protein (honey bee) (More??) Close Abdomen Ultrasound (Signed) Jas Louis - 12/28/21 Hand X-Ray (Signed) Bib Gloria - 07/11/20 Toe X-Ray (Signed) Peter Chamberlain - 07/01/20 PFT Result 05/27/20 PFT Result 05/27/20 Skull X-Ray (Signed) Ryan Drake - 05/11/20 Skull X-Ray (Cancelled) 05/11/20 Lumbar Spine X-Ray (Signed) Ryan Drake - 05/11/20 Lumbar Spine X-Ray (Cancelled) 05/11/20 Chest X-Ray (Signed) No Walker - 11/30/19 Launch?[address] [address] Ultrasound Report Signed Patient: Fariha Lundberg MR#: [id number] : 1995 Acct:[id number] Age/Sex: 26 / M Date of Service: 12/28/21 Loc: ED Accession Number: [id number] ?? Procedure: US abdomen limited Ordering Provider: Eugenio Oates D.O. PROCEDURE: US ABDOMEN LIMITED ? INDICATIONS:? PAIN; N/V ? TECHNIQUE:? Real-time focused scanning was performed of the abdomen, with image do cumentation.? ? COMPARISON:? None. ? FINDINGS:? ? The liver is normal in size and echogenicity. ? Gallbladder demonstrates no stones, wall thickening, or pericholecystic fluid. ? No intra or extrahepatic biliary ductal dilatation. ? The pancreas was not well visualized due to bowel gas. ? IMPRESSION:? ? 1. No evidence of cholelithiasis or cholecystitis.? ? ? Dictated by: Jas Louis M.D. on 12/28/2021 at 1:49 ? ? Approved by: Jas Louis M.D. on 12/28/2021 at 1:50 ? MDM Narrative Medical decision making narrative: Multiple etiologies for patient's symptoms considered include, but not limited to: [Pancreatitis versus gallbladder disease versus gastritis versus COVID versus other Patient does have elevated lipase suggesting an element pancreatitis, however ultrasound is unremarkable and there is no gallstone involvement. He is tolerating orals and pain is well controlled and not in need of hospitalization at this time Patient's symptoms improved over duration of stay with above-stated therapies. History, physical exam, labs, imaging, and response to therapies have been reassuring. Findings and discharge diagnosis discussed with patient/family followed by verbalization of understanding Return precautions discussed with patient/family whom verbalize understanding. Pain has been well controlled and patient is tolerating oral hydration. Discharge Plan Departure Patient Disposition: Home Clinical Impression: Vomiting, Acute pancreatitis Instructions: Acute Pancreatitis, DI for Vomiting -- Adult Activity Restrictions/Additional Instructions: *You have been diagnosed with [vomiting and mild pancreatitis] * As we discussed your history and physical exam as well as labs and imaging are very reassuring. There is no evidence of any severe diagnoses that would require a specific or immediate intervention. *What to do: *Please continue to take your regular medications as directed. [x ] New medication prescriptions sent to your pharmacy: [ [facility]] *Please follow up with your primary care provider in 2-3 days, call for an appointment. Let them know you were seen in the Emergency Department and that we ask that you be seen in follow up. We will electronically transmit a record of today's note if your PCP is in our system *Please consider a clear liquid diet for the next 24-48 hours and then slowly advance to regular as tolerated. Also, try to avoid alcohol, nicotine, caffeine, spicy, acidic or fatty foods as this may worsen your symptoms *If you do not have a primary care provider please contact the [facility] Resource line at [phone]. They will ask some questions about your medical history and help get you set up with a doctor in the community. *Return to Emergency Department if you should have any new, worsening or concerning symptoms, such as [fever greater than 101 F, shaking chills, worsening pain, persistent vomiting or other bothersome symptoms] Prescriptions: New hydrocodone-acetaminophen 5-325 mg tablet 1 tab PO Q4-6H PRN (Reason: pain) Qty: 10 0RF pantoprazole [Protonix] 40 mg tablet,delayed release (DR/EC) 40 mg PO DAILY Qty: 30 0RF ondansetron 4 mg tablet,disintegrating 4 mg PO TID-QID PRN (Reason: nausea and vomiting) Qty: 10 0RF No Action valacyclovir 1,000 MG tablet 1,000 mg PO Q12H Qty: 20 0RF prednisone 50 mg tablet 50 mg PO DAILY Qty: 5 0RF hydroxyzine HCl 10 mg tablet 10 mg PO TID PRN (Reason: anxiety) Qty: 60 0RF Rx Instructions: May use 1-2 tabs as needed. doxycycline hyclate 100 mg tablet 100 mg PO BID Qty: 20 0RF Referrals: Edgar Mensah MD [Primary Care Provider] - Visit Report Forms: Patient Portal/API
[2021-12-28] MEDS: HYDROMORPHONE 0.5 MG INJ IV (00:37)
[2021-12-28 01:00] VITALS: BP 116/67; PULSE 71; RESP 16; O2SAT 97
[2021-12-28] MEDS: ONDANSETRON 4 MG ODT PREPACK 1 BOTTLE MISC (02:15)
[2021-12-28] MEDS: HYDROCODONE/ACET 5/325 PREPACK 1 BOTTLE MISC (02:15)
[2021-12-28 02:24] VITALS: BP 124/64; PULSE 80; RESP 18; O2SAT 99
== END 2021-12-28 02:24 | disposition home or self-care (01) ==
PROVIDERS: Emergency Provider Emergency Medicine; Family Provider Family Medicine; PCP Family Medicine
DX: R11.10 Vomiting, unspecified (principal); K85.90 Acute pancreatitis without necrosis or infection, unspecified; R10.84 Generalized abdominal pain; Z20.822 Contact with and (suspected) exposure to COVID-19
CPT/HCPCS: 36415; 76705; 80053; 83690; 83735; 85025; 87635; 96361; 96374; 96375; 99284; C9803; C9113; J1170; J1630; J2405

== ENCOUNTER 2021-12-31 10:33 | Emergency (ER) | payer OTHER, MEDICAID, SELFPAY ==
[2021-12-31 10:39] VITALS: BP 116/78; PULSE 78; RESP 12; TEMP 36.9; O2SAT 99; BMI 23.7
--- NOTE | 2021-12-31 10:46 | DI.RAD.S_ITS ---
PROCEDURE: XR CHEST 2V INDICATIONS: cough TECHNIQUE: 2 views of the chest were acquired. COMPARISON: [facility], CR, XR CHEST 1V, 11/30/2019, 12:10. FINDINGS: Surgical changes and devices: None. Lungs and pleura: Lungs are clear. No pleural effusions or pneumothorax. Mediastinum: Mediastinal contours are normal. Heart size is normal. Bones and chest wall: No suspicious bony abnormalities. Soft tissues appear unremarkable. IMPRESSION: No acute cardiopulmonary abnormality. Dictated by: Umang Boyd M.D. on 12/31/2021 at 11:47 Approved by: Umang Boyd M.D. on 12/31/2021 at 11:48
[2021-12-31 12:09] LABS: COVID19 -Nasal RAPID Negative (Negative)
--- NOTE | 2021-12-31 12:30 | ED.URI ---
HPI - URI/Sore Throat <Enzo Cantu PA-C - Last Filed: 01/01/22 19:50> General Chief Complaint: Upper Respiratory Symptoms Stated Complaint: fills like he has pneumonia/coughing up phlegm Time Seen by Provider: 12/31/21 12:05 Source: patient Mode of arrival: Family Vehicle History of Present Illness HPI Narrative: Patient is a 26-year-old male who presents to the emergency room today with complaint of coughing up secretions wheezing feeling short of breath and sweating. When collecting the HPI patient stated that he feels that he has been asked too many questions about his condition and that he does not want talk anymore. Patient stated that he wants to leave. Patient then exited the emergency room. Related Data Previous Rx's Medication Instructions Recorded valacyclovir 1 gram tablet 1,000 mg PO Q12H #20 tabs 12/21/16 hydroxyzine HCl 10 mg tablet 10 mg PO TID PRN anxiety #60 tabs 07/01/20 prednisone 50 mg tablet 50 mg PO DAILY #5 tabs 07/01/20 doxycycline hyclate 100 mg tablet 100 mg PO BID #20 tabs 07/11/20 hydrocodone 5 mg-acetaminophen 325 1 tab PO Q4-6H PRN pain #10 tabs 12/28/21 mg tablet ondansetron 4 mg disintegrating 4 mg PO TID-QID PRN nausea and 12/28/21 tablet vomiting #10 tabs pantoprazole 40 mg tablet,delayed 40 mg PO DAILY #30 tabs 12/28/21 release (Protonix) Allergies Allergy/AdvReac Type Severity Reaction Status Date / Time bee venom protein (honey bee) Allergy Intermediate swelling Verified 12/31/21 10:43 and hives Patient History <Enzo Cantu PA-C - Last Filed: 01/01/22 19:50> Medical History Asthma (~1999) Burn Chicken pox (~1999) Chronic back pain (~2019) Chronic cough (~2014) Concussion Elevated blood protein Elevated hemoglobin Foot pain (~2019) Fracture (~2020) Generalized anxiety disorder (~2019) Herpes (~2014) History of bipolar disorder Low back pain Sprain of left great toe Family History Mother Hypertension Grandfather History of heart disease Grandmother Influenza Grandfather Cancer Grandmother Cancer Social History Smoking Status: Former smoker substance use type: marijuana Smoking Status: Former smoker tobacco type: cigarettes alcohol intake frequency: holidays/special occasions only Alcohol type: hard liquor Substance Use Type: marijuana Exam <Enzo Cantu PA-C - Last Filed: 01/01/22 19:50> Initial Vital Signs Initial Vital Signs: Vital Signs Temperature 98.5 F 12/31/21 10:39 Pulse Rate 78 12/31/21 10:39 Respiratory Rate 12 12/31/21 10:39 Blood Pressure 116/78 12/31/21 10:39 Pulse Oximetry 99 12/31/21 10:39 Oxygen Delivery Method 12/31/21 10:39 <Kamala Mitchell MD - Last Filed: 01/02/22 11:38> Initial Vital Signs Initial Vital Signs: Vital Signs Temperature 98.5 F 12/31/21 10:39 Pulse Rate 78 12/31/21 10:39 Respiratory Rate 12 12/31/21 10:39 Blood Pressure 116/78 12/31/21 10:39 Pulse Oximetry 99 12/31/21 10:39 Oxygen Delivery Method 12/31/21 10:39 Course <Enzo Cantu PA-C - Last Filed: 01/01/22 19:50> Orders Ordered: ED Orders 12/31/21 10:46 XR chest 2V Stat 12/31/21 10:47 COVID19 -Nasal RAPID/Pre-Proc Stat Vital Signs Vital signs: Vital Signs - 8 hr 12/31/21 10:39 Temperature 98.5 F Pulse Rate 78 Respiratory Rate 12 Blood Pressure 116/78 Pulse Oximetry 99 Oxygen Delivery Method Room Air <Kamala Mitchell MD - Last Filed: 01/02/22 11:38> Orders Ordered: ED Orders 12/31/21 10:46 XR chest 2V Stat 12/31/21 10:47 COVID19 -Nasal RAPID/Pre-Proc Stat Vital Signs Vital signs: Vital Signs - 8 hr 12/31/21 10:39 Temperature 98.5 F Pulse Rate 78 Respiratory Rate 12 Blood Pressure 116/78 Pulse Oximetry 99 Oxygen Delivery Method Room Air MDM - URI/Sore Throat <Enzo Cantu PA-C - Last Filed: 01/01/22 19:50> Lab Data Labs: Lab Results 12/31/21 Range/Units 10:47 SARS-CoV-2 (PCR) Negative (Negative) Imaging Data Chest x-ray: Radiologist's Impression: PROCEDURE:? XR CHEST 2V ? INDICATIONS:? cough ? TECHNIQUE:? 2 views of the chest were acquired.? ? COMPARISON:? [facility], , XR CHEST 1V, 11/30/2019, 12:10. ? FINDINGS:? ? Surgical changes and devices:? None.? ? Lungs and pleura:? Lungs are clear.? No pleural effusions or pneumothorax.? ? Mediastinum:? Mediastinal contours are normal.? Heart size is normal.? ? Bones and chest wall:? No suspicious bony abnormalities.? Soft tissues appear unremarkable.? ? IMPRESSION:? No acute cardiopulmonary abnormality. ? ? ? Dictated by: Umang Boyd M.D. on 12/31/2021 at 11:47 ? ? Approved by: Umang Boyd M.D. on 12/31/2021 at 11:48 ? [facility] Narrative Medical decision making narrative: Patient is a 26-year-old male who presents to the emergency room today with complaint of coughing up secretions wheezing feeling short of breath and sweating. Walk collecting the HPI patient stated that he feels that he has been asked to many questions about his condition and that he does not want talk anymore. Patient states that he wants to leave. Patient then exited the emergency room. <Kamala Mitchell MD - Last Filed: 01/02/22 11:38> Lab Data Labs: Lab Results 12/31/21 Range/Units 10:47 SARS-CoV-2 (PCR) Negative (Negative) Discharge Plan Departure Patient Disposition: Left Against Medical Advice Clinical Impression: Patient left care setting after treatment was declined Prescriptions: No Action valacyclovir 1,000 MG tablet 1,000 mg PO Q12H Qty: 20 0RF prednisone 50 mg tablet 50 mg PO DAILY Qty: 5 0RF hydroxyzine HCl 10 mg tablet 10 mg PO TID PRN (Reason: anxiety) Qty: 60 0RF Rx Instructions: May use 1-2 tabs as needed. hydrocodone-acetaminophen 5-325 mg tablet 1 tab PO Q4-6H PRN (Reason: pain) Qty: 10 0RF pantoprazole [Protonix] 40 mg tablet,delayed release (DR/EC) 40 mg PO DAILY Qty: 30 0RF ondansetron 4 mg tablet,disintegrating 4 mg PO TID-QID PRN (Reason: nausea and vomiting) Qty: 10 0RF doxycycline hyclate 100 mg tablet 100 mg PO BID Qty: 20 0RF Referrals: Miscellaneous,Doctor, [Primary Care Provider] - Stand Alone Forms: Against Medical Advice <Kamala Mitchell MD - Last Filed: 01/02/22 11:38> Cosign ED Attending Cosignature Attestation: I was immediately available in the department for consultation throughout this patient's visit. I agree with documentation as above. Kamala Mitchell MD
--- NOTE | 2021-12-31 12:58 | PC.NURSE ---
pt states he is coughing with mucus over the last day.
== END 2021-12-31 12:30 | disposition left against medical advice (07) ==
PROVIDERS: Emergency Medicine; Emergency Provider Physician Assistant; Family Provider Family Medicine
DX: R05.9 Cough, unspecified (principal); Z20.822 Contact with and (suspected) exposure to COVID-19
CPT/HCPCS: 71046; 87635; 99283; C9803

== ENCOUNTER → 2022-03-01 15:32 | Outpatient (CLI) | payer OTHER, MEDICAID, SELFPAY ==
[2022-03-01 17:41] LABS: Add Manual Diff / Slide Review NO; Basophils Absolute Auto 0 /uL (0-100); Basophils Percent Auto 0.6 % (0-2); Eosinophils Absolute Auto 300 /uL (0-450); Eosinophils Percent Auto 3.9 % (2-4); Hematocrit 40.2 % (41-53); Hemoglobin 14.5 g/dL (13.5-17.5); Lymphocytes Absolute Auto 2100 /uL (1100-4500); Lymphocytes Percent Auto 27.5 % (25-40); Mean Corpuscular HGB Conc 35.9 % (30-36); Mean Corpuscular Hemoglobin 30.8 PG (26-34); Mean Corpuscular Volume 85.8 fL (80-100); Monocytes Absolute Auto 600 /uL (0-900); Monocytes Percent Auto 8.4 % (3-14); Neutrophils Absolute Auto 4600 /uL (1500-7000); Neutrophils Percent Auto 59.6 % (50-75); Platelet Count 223 X10^3/uL (150-400); Red Blood Cell Count 4.69 X10^6/uL (4.5-5.9); Red Cell Distribution Width 12.7 % (11.6-14.8); White Blood Cell Count 7.8 X10^3/uL (4.5-11.0)
[2022-03-01 18:10] LABS: Alanine Aminotransferase 32 IU/L (<50); Albumin 4.7 g/dL (3.5-5.0); Albumin Globulin Ratio 1.6 (1.0-2.8); Alkaline Phosphatase 44 U/L (38-126); Aspartate Aminotransferase 41 IU/L (17-59); BUN Creatinine Ratio 16.8 (6-22); Bilirubin Total 0.5 mg/dL (0.2-1.3); Blood Urea Nitrogen 18 mg/dL (9-20); Calcium 9.2 mg/dL (8.4-10.2); Carbon Dioxide 29 mmol/L (22-32); Chloride 99 mmol/L (98-107); Estimated Glomerular Filt Rate > 60 mL/min (>60); Globulin 2.9 g/dL (1.7-4.1); Glucose 80 mg/dL (70-100); HEMOLYSIS < 15 (0-50); Lipase 82 U/L (23-300); Potassium 3.5 mmol/L (3.4-5.1); Sodium 140 mmol/L (137-145); Total Protein 7.6 g/dL (6.3-8.2)
== END ==
PROVIDERS: Family Provider Family Medicine; PCP Family Medicine; Referring Provider Family Medicine; Visit Provider Family Medicine
DX: R10.9 Unspecified abdominal pain (principal)
CPT/HCPCS: 36415; 80053; 83690; 85025

== ENCOUNTER → 2022-04-28 17:01 | Outpatient (CLI) | payer OTHER, MEDICAID, SELFPAY ==
--- NOTE | 2022-04-28 17:03 | DI.RAD.S_ITS ---
PROCEDURE: XR THORACIC SPINE 3V INDICATIONS: t-spine pain TECHNIQUE: 3 views of the thoracic spine were acquired. COMPARISON: None. FINDINGS: Bones: Normal thoracic vertebral body height and alignment. No suspicious bone lesion. No degenerative changes. Visualized ribs unremarkable Soft tissues: No paravertebral stripe thickening. IMPRESSION: Normal study. Dictated by: Domingo Farley M.D. on 05/02/2022 at 8:57 Approved by: Domingo Farley M.D. on 05/02/2022 at 8:58
[2022-04-29 21:00] LABS: HIV 1 & 2 Ab/Ag 4th Gen Combo NEGATIVE (NEGATIVE); Hep C Virus Ab w/Reflex Quant NEGATIVE s/c (NEGATIVE); Hepatitis B Surface Antigen NEGATIVE s/c (NEGATIVE)
== END ==
PROVIDERS: Family Provider Family Medicine; PCP Family Medicine; Referring Provider Family Medicine; Visit Provider Family Medicine
DX: Z11.4 Encounter for screening for human immunodeficiency virus [HIV] (principal); Z11.59 Encounter for screening for other viral diseases
CPT/HCPCS: 36415; 72072; 86803; 87340; 87389

== ENCOUNTER 2022-05-09 16:45 | Outpatient (RCR) | payer OTHER, MEDICAID, SELFPAY ==
--- NOTE | 2022-04-20 17:30 | PT.OIE ---
Current Diagnoses Other specified acquired deformities of left upper arm (04/20/22) Low back pain, unspecified (04/20/22) Dorsalgia, unspecified (04/20/22) Unspecified abdominal pain (04/20/22) Weakness (04/20/22) Past Medical History (Last Reviewed 12/28/21 @ 00:35 by Eugenio Oates DO) Asthma (~1999) Burn Chicken pox (~1999) Chronic back pain (~2019) Chronic cough (~2014) Concussion Elevated blood protein Elevated hemoglobin Foot pain (~2019) Fracture (~2020) Generalized anxiety disorder (~2019) Herpes (~2014) History of bipolar disorder Low back pain Sprain of left great toe Visit Care Team Role Provider Type Lucinda Alejandro DO Family Provider Non-Staff Specialty: [facility] Address: [address] [place] [address], [address] Email: [email or web address] Leonor Coronel DO Attending Provider Physician Primary Care Provider Referring Provider Specialty: [facility] Address: [address] [place] [address], [address] Phone: Fax: Email: [email or web address] Physical Therapy Initial Evaluation PT-OP-A Visit Information Start: 04/20/22 17:34 Freq: Status: Active Protocol: Document 04/20/22 16:45 DCW (Rec: 04/20/22 17:47 DCW [id number]) Out-Patient Physical Therapy Visit Information Visit Information Visit Type Initial Evaluation Visit Start Time 16:45 Visit Stop Time 17:25 Total Visit Minutes 40 Visit Number 1 Number of CORN SHREDDER Visits 0 Evaluation Information Evaluation Date 04/20/22 PT-OP-B Current Condition Start: 04/20/22 17:34 Freq: Status: Active Protocol: Document 04/20/22 16:45 DCW (Rec: 04/20/22 17:47 DCW [id number]) Current Condition History of Current Condition Onset Date Long-standing history Current Complaints Low back pain, mid back pain, left scapular pain History of Current Condition Pt is a 26 year old male presenting with a long- standing history of low back, mid back, and left scapular pain. Pt reports that ~2 year ago, he had a lumbar MRI which uncovered bone spurs, but he hasn't gotten anything done with it. Reports he just experiences a deep nagging pain and describes mostly the area of his left lat. Admits he has poor posture, especially when sitting. Worried that the pain in his scapula is related to his heart. 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 Pain is often worse with positioning, depending on how he is laying down, or if his girlfriend leans against him, causing his back to twist . PT-OP-C Subjective Start: 04/20/22 17:34 Freq: Status: Active Protocol: Document 04/20/22 16:45 DCW (Rec: 04/20/22 17:47 DCW [id number]) OP-PT Subjective Patient Comments Patient Comments I'm really excited to be in here actually addressing this. Patient Questionnaires Quick Dash- Upper Extremity Quick Dash UE Score 6/50 = 12% Quick Dash UE Impairment 1 to 19% Impaired (Score 1-19) OP-PT Pain Assessment Pain Assessment Grid Paper Pain Assessment Grid Completed Yes Location Left Posterior Shoulder Intensity 4 Scale Used Numeric (0 - 10) Description Spasm Lower Back Intensity 6 Scale Used Numeric (0 - 10) Description Aching,Dull PT-OP-F Manual Assessment Start: 04/20/22 17:34 Freq: Status: Active Protocol: Document 04/20/22 16:45 DCW (Rec: 04/20/22 17:59 DCW [id number]) Manual Assessments Soft Tissue Assessment Soft Tissue Mobility Assessment Increased tone along lumbar paraspinals and entire left lat, tenderness to palpation 3 /4: wincing and withdraw left lat Joint Mobility Assessment Joint Mobility Assessment Left winging scapula, measurement spine to medial board at scapular spine: L 7 cm, R 8 cm. Inferior angle: L 11.5 cm, R 10 cm. PT-OP-J Posture/Palpation/Skin Start: 04/20/22 17:34 Freq: Status: Active Protocol: Document 04/20/22 16:45 DCW (Rec: 04/20/22 17:59 DCW [id number]) Posture Evaluation Position Sitting Evaluation View Posterior Scapula Posture (L) Rotated Up,(L) Winged PT-OP-K Range of Motion Start: 04/20/22 17:59 Freq: Status: Active Protocol: Document 04/20/22 16:45 DCW (Rec: 04/20/22 18:02 DCW [id number]) Lumbar Spine Range of Motion Lumbar Spine Active Degrees Testing Position Standing Flexion 80 Extension 20 Lateral Flexion Left 57 Lateral Flexion Right 51 ROM Limitations Soft Tissue Tightness,Pain Comments Lateral flexion measured in cm from fingertip to floor Significant increase in pain with extension and left lateral flexion PT-OP-L Special Tests Start: 04/20/22 17:34 Freq: Status: Active Protocol: Document 04/20/22 16:45 DCW (Rec: 04/20/22 17:59 DCW [id number]) Special Tests Lumbar Spine Special Tests Straight Leg Raise Test Results Negative Standing Flexion Test Results Mild pain Slump Test Results Negative Passive Neck Flexion Test Results Negative Compression Test Results Negative A-P Shearing Test Results Negative PT-OP-M Strength Start: 04/20/22 17:34 Freq: Status: Active Protocol: Document 04/20/22 16:45 DCW (Rec: 04/20/22 17:59 DCW [id number]) Scapula Strength Scapula Manual Muscle Testing Right Adduction 4 Good Left Adduction 3 Fair PT-OP-Q Treatments Start: 04/20/22 17:34 Freq: Status: Active Protocol: Document 04/20/22 16:45 DCW (Rec: 04/20/22 17:52 DCW [id number]) Therapeutic Exercises Supine Exercises Piriformis Strtetch Supine Exercise Name Figure-4, Yffo-[id number] shoulder Side left Serratus Punch Supine Exercise Name Serratus Punch Side bilateral Sitting Exercises Piriformis Stretch Sitting Exercise Name Seated figure-4 Side bilateral Standing Exercises Shoulder Extension Standing Exercise Name Shoulder Extension Side bilateral Resistance Lv 3 Rows Standing Exercise Name Rows Side bilateral Resistance Lv 3 PT-OP-T Assessment and Plan Start: 04/20/22 17:34 Freq: Status: Active Protocol: Document 04/20/22 16:45 DCW (Rec: 04/21/22 08:45 DCW [id number]) Physical Therapy Assessment Rehab Potential Rehabilitation Potential Good Evaluation Complexity Number of Personal Factors/Comorbidities 1-2 Number of Body Systems Impaired 1-2 Clinical Presentation at Evaluation Stable Impairments Impairments Functional Activities, Functional Mobility,Posture, ROM,Soft Tissue Mobility, Strength Goals Three Impairment Lumbar ROM restricted due to pain Custodial Goal (LTG) Pt to increase pain-free lumbar extension to at least 30? 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 LTG Duration 06/18/22 Two Impairment Pt presents with a winging and clockwise rotated left scapula Custodial Goal (LTG) Pt to present with left scapula with equal measurement from spine vs right scapula to demonstrate improved function of parascapular musculature and improved scapular strength LTG Duration 06/18/22 One Impairment Pt does not have an appropriate home exercise program Short Term Goal (STG) Pt to be independent and compliant with an appropriate HEP STG Duration 05/21/22 Assessment Summary Assessment Pt presents with complaints of low- and mid-back pain, as well as left scapular pain. Pt displays left lat and serratus anterior weakness, resulting in poor positioning of his left scapula. 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 This could likely be the potential cause of his low back pain and hypertonia in his lumbar paraspinals. Pt should benefit from skilled therapy focusing on improving lat and serratus strength, decreasing lumbar compensation , STM to decrease tone, and stretching/flexibility to improve low back mobility. Physical Therapy Plan Frequency and Duration Frequency of Treatment 2x/Week Plan of Care Start Date 04/20/22 Plan of Care End Date 06/18/22 Therapeutic Interventions Therapeutic Interventions Home Exercise Program,Joint Mobilizations,Manual Therapy, Neuromuscular Re-education, Patient/Caregiver Education, Self-Care/Home Management,Soft Tissue Mobilization, Therapeutic Activities, Therapeutic Exercises Modalities Cold Pack/Ice Massage,Electric Stimulation,Hot Packs, Ultrasound Next Visit Focus/Plan Next Note Type Treatment Note Next Visit Plan Scapular strengthening, core strengthening, lumbar flexibility
--- NOTE | 2022-04-20 17:31 | PT.OPPOC ---
Physical, Occupational & Speech Therapy At [facility] Current Diagnoses Other specified acquired deformities of left upper arm (04/20/22) Low back pain, unspecified (04/20/22) Dorsalgia, unspecified (04/20/22) Unspecified abdominal pain (04/20/22) Weakness (04/20/22) Visit Care Team Role Provider Type Lucinda Alejandro DO Family Provider Non-Staff Specialty: [facility] Address: [address] [place] [address], [address] [place] [address], [id number] Email: [email or web address] Leonor Coronel DO Attending Provider Physician Primary Care Provider Referring Provider Specialty: [facility] Address: [address] [place] [address], [address], [address] Phone: Fax: Email: [email or web address] Plan Of Care PT-OP-T Assessment and Plan Start: 04/20/22 17:34 Freq: Status: Active Protocol: Document 04/20/22 16:45 DCW (Rec: 04/21/22 08:45 DCW [id number]) Physical Therapy Assessment Rehab Potential Rehabilitation Potential Good Evaluation Complexity Number of Personal Factors/Comorbidities 1-2 Number of Body Systems Impaired 1-2 Clinical Presentation at Evaluation Stable Impairments Impairments Functional Activities, Functional Mobility,Posture, ROM,Soft Tissue Mobility, Strength Goals Three Impairment Lumbar ROM restricted due to pain Residential Goal (LTG) Pt to increase pain-free lumbar extension to at least 30? 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 LTG Duration 06/18/22 Two Impairment Pt presents with a winging and clockwise rotated left scapula Residential Goal (LTG) Pt to present with left scapula with equal measurements from spine vs right scapula to demonstrate improved function of parascapular musculature and improved scapular strength LTG Duration 06/18/22 One Impairment Pt does not have an appropriate home exercise program Short Term Goal (STG) Pt to be independent and compliant with an appropriate HEP STG Duration 05/21/22 Assessment Summary Assessment Pt presents with complaints of low- and mid-back pain, as well as left scapular pain. Pt displays left lat and serratus anterior weakness, resulting in poor positioning of his left scapula. 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 This could likely be the potential cause of his low back pain and hypertonia in his lumbar paraspinals. Pt should benefit from skilled therapy focusing on improving lat and serratus strength, decreasing lumbar compensation , STM to decrease tone, and stretching/flexibility to improve low back mobility. Physical Therapy Plan Frequency and Duration Frequency of Treatment 2x/Week Plan of Care Start Date 04/20/22 Plan of Care End Date 06/18/22 Therapeutic Interventions Therapeutic Interventions Home Exercise Program,Joint Mobilizations,Manual Therapy, Neuromuscular Re-education, Patient/Caregiver Education, Self-Care/Home Management,Soft Tissue Mobilization, Therapeutic Activities, Therapeutic Exercises Modalities Cold Pack/Ice Massage,Electric Stimulation,Hot Packs, Ultrasound Next Visit Focus/Plan Next Note Type Treatment Note Next Visit Plan Scapular strengthening, core strengthening, lumbar flexibility Plan of Care Dates Plan of Care Start Date 04/20/22 Plan of Care End Date 06/18/22 Electronically Signed by: Julio Forte, PT 04/21/22 0847 If you are in agreement with this Plan of Care, please return a signed and dated copy. I have reviewed this Plan of Care and certify that the skilled therapy services above are required to meet the patient?s needs. Physician Signature Date Printed Name and Credentials Clinical Instructor Signature Printed Name and Credentials
--- NOTE | 2022-04-27 17:31 | PT.OTN ---
Current Diagnoses Other specified acquired deformities of left upper arm (04/27/22) Low back pain, unspecified (04/27/22) Dorsalgia, unspecified (04/27/22) Unspecified abdominal pain (04/27/22) Weakness (04/27/22) Physical Therapy Treatment Note PT-OP-A Visit Information Start: 04/20/22 17:34 Freq: Status: Active Protocol: Document 04/27/22 16:45 DCW (Rec: 04/27/22 17:31 DCW [id number]) Out-Patient Physical Therapy Visit Information Visit Information Visit Type Treatment Note Visit Start Time 16:45 Visit Stop Time 17:30 Total Visit Minutes 45 Visit Number 2 Number of REIMBURSEMENT ANALYST Visits 0 Evaluation Information Evaluation Date 04/20/22 PT-OP-B Current Condition Start: 04/20/22 17:34 Freq: Status: Active Protocol: Document 04/20/22 16:45 DCW (Rec: 04/20/22 17:47 DCW [id number]) Current Condition History of Current Condition Onset Date Long-standing history Current Complaints Low back pain, mid back pain, left scapular pain History of Current Condition Pt is a 26 year old male presenting with a long- standing history of low back, mid back, and left scapular pain. Pt reports that ~2 year ago, he had a lumbar MRI which uncovered bone spurs, but he hasn't gotten anything done with it. Reports he just experiences a deep nagging pain and describes mostly the area of his left lat. Admits he has poor posture, especially when sitting. Worried that the pain in his scapula is related to his heart. 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 Pain is often worse with positioning, depending on how he is laying down, or if his girlfriend leans against him, causing his back to twist . PT-OP-C Subjective Start: 04/20/22 17:34 Freq: Status: Active Protocol: Document 04/27/22 16:45 DCW (Rec: 04/27/22 17:31 DCW [id number]) OP-PT Subjective Patient Comments Patient Comments Notes his shoulder is pretty sore today, but admits he has been doing a lot of intense work with his jobs. PT-OP-F Manual Assessment Start: 04/20/22 17:34 Freq: Status: Active Protocol: Document 04/20/22 16:45 DCW (Rec: 04/20/22 17:59 DCW [id number]) Manual Assessments Soft Tissue Assessment Soft Tissue Mobility Assessment Increased tone along lumbar paraspinals and entire left lat, tenderness to palpation 3 /4: wincing and withdraw left lat Joint Mobility Assessment Joint Mobility Assessment Left winging scapula, measurement spine to medial board at scapular spine: L 7 cm, R 8 cm. Inferior angle: L 11.5 cm, R 10 cm. PT-OP-J Posture/Palpation/Skin Start: 04/20/22 17:34 Freq: Status: Active Protocol: Document 04/20/22 16:45 DCW (Rec: 04/20/22 17:59 DCW [id number]) Posture Evaluation Position Sitting Evaluation View Posterior Scapula Posture (L) Rotated Up,(L) Winged PT-OP-K Range of Motion Start: 04/20/22 17:59 Freq: Status: Active Protocol: Document 04/20/22 16:45 DCW (Rec: 04/20/22 18:02 DCW [id number]) Lumbar Spine Range of Motion Lumbar Spine Active Degrees Testing Position Standing Flexion 80 Extension 20 Lateral Flexion Left 57 Lateral Flexion Right 51 ROM Limitations Soft Tissue Tightness,Pain Comments Lateral flexion measured in cm from fingertip to floor Significant increase in pain with extension and left lateral flexion PT-OP-L Special Tests Start: 04/20/22 17:34 Freq: Status: Active Protocol: Document 04/20/22 16:45 DCW (Rec: 04/20/22 17:59 DCW [id number]) Special Tests Lumbar Spine Special Tests Straight Leg Raise Test Results Negative Standing Flexion Test Results Mild pain Slump Test Results Negative Passive Neck Flexion Test Results Negative Compression Test Results Negative A-P Shearing Test Results Negative PT-OP-M Strength Start: 04/20/22 17:34 Freq: Status: Active Protocol: Document 04/20/22 16:45 DCW (Rec: 04/20/22 17:59 DCW [id number]) Scapula Strength Scapula Manual Muscle Testing Right Adduction 4 Good Left Adduction 3 Fair PT-OP-Q Treatments Start: 04/20/22 17:34 Freq: Status: Active Protocol: Document 04/27/22 16:45 DCW (Rec: 04/27/22 17:31 DCW [id number]) Cardio Equipment Upper Body Ergometer (UBE) Duration (Minutes) 5 RPM 60 Seat Position 12 Height 3 Gym Equipment Therapeutic Ball Walk-outs Exercise Details Prone Walk-outs Ball Size/Color Green - 65 cm Body Position Prone I's, Y's, and T's Exercise Details Prone I's, Y's, and T's Ball Size/Color Green - 65 cm Body Position Prone Therapeutic Exercises Standing Exercises Pallof Press Standing Exercise Name Pallof Press Side bilateral Resistance Lv 4 Other Exercises Resisted Ambulation Other Exercise Name Resisted UE side-stepping Wall push-ups Other Exercise Name Push-ups plus Manual Therapy Treatment Soft Tissue Mobilization Parascapulars Body Location L Infraspinatus, Subscap, Rhomboids Mobilization Type Sustained Pressure,Trigger Point Release Intensity/Depth Moderate Joint Mobilizations Scapulothoracic Joint L Scapulothoracic Direction Lateral Grade III Body Position Supine PT-OP-T Assessment and Plan Start: 04/20/22 17:34 Freq: Status: Active Protocol: Document 04/27/22 16:45 DCW (Rec: 04/27/22 17:31 DCW [id number]) Physical Therapy Assessment Impairments Impairments Functional Activities, Functional Mobility,Posture, ROM,Soft Tissue Mobility, Strength Goals Three Impairment Lumbar ROM restricted due to pain [facility] Goal (LTG) Pt to increase pain-free lumbar extension to at least 30? 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 LTG Duration 06/18/22 Two Impairment Pt presents with a winging and clockwise rotated left scapula Demurrage Man Goal (LTG) Pt to present with left scapula with equal measurements from spine vs right scapula to demonstrate improved function of parascapular musculature and improved scapular strength LTG Duration 06/18/22 One Impairment Pt does not have an appropriate home exercise program Short Term Goal (STG) Pt to be independent and compliant with an appropriate HEP STG Duration 05/21/22 Assessment Summary Assessment Pt continue to demonstrate increased compensation throughout his low back/ erector spinae with most shoulder movements. Discussed importance of core strength and bracing to limit overactivity of low back. Additionally focused on strengthening parascapular musculature to improve positioning. Physical Therapy Plan Frequency and Duration Frequency of Treatment 2x/Week Plan of Care Start Date 04/20/22 Plan of Care End Date 06/18/22 Therapeutic Interventions Therapeutic Interventions Home Exercise Program,Joint Mobilizations,Manual Therapy, Neuromuscular Re-education, Patient/Caregiver Education, Self-Care/Home Management,Soft Tissue Mobilization, Therapeutic Activities, Therapeutic Exercises Modalities Cold Pack/Ice Massage,Electric Stimulation,Hot Packs, Ultrasound Next Visit Focus/Plan Next Note Type Treatment Note Next Visit Plan Scapular strengthening, core strengthening, lumbar flexibility
--- NOTE | 2022-05-09 17:36 | PT.OTN ---
Current Diagnoses Other specified acquired deformities of left upper arm (05/09/22) Low back pain, unspecified (05/09/22) Dorsalgia, unspecified (05/09/22) Unspecified abdominal pain (05/09/22) Weakness (05/09/22) Physical Therapy Treatment Note PT-OP-A Visit Information Start: 04/20/22 17:34 Freq: Status: Active Protocol: Document 05/09/22 16:45 DCW (Rec: 05/09/22 17:35 DCW [id number]) Out-Patient Physical Therapy Visit Information Visit Information Visit Type Treatment Note Visit Start Time 16:45 Visit Stop Time 17:30 Total Visit Minutes 45 Visit Number 3 Number of RAND SEWER Visits 0 Evaluation Information Evaluation Date 04/20/22 PT-OP-B Current Condition Start: 04/20/22 17:34 Freq: Status: Active Protocol: Document 04/20/22 16:45 DCW (Rec: 04/20/22 17:47 DCW [id number]) Current Condition History of Current Condition Onset Date Long-standing history Current Complaints Low back pain, mid back pain, left scapular pain History of Current Condition Pt is a 26 year old male presenting with a long- standing history of low back, mid back, and left scapular pain. Pt reports that ~2 year ago, he had a lumbar MRI which uncovered bone spurs, but he hasn't gotten anything done with it. Reports he just experiences a deep nagging pain and describes mostly the area of his left lat. Admits he has poor posture, especially when sitting. Worried that the pain in his scapula is related to his heart. 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 Pain is often worse with positioning, depending on how he is laying down, or if his girlfriend leans against him, causing his back to twist . PT-OP-C Subjective Start: 04/20/22 17:34 Freq: Status: Active Protocol: Document 05/09/22 16:45 DCW (Rec: 05/09/22 17:35 DCW [id number]) OP-PT Subjective Patient Comments Patient Comments Pt reports his low back is improving, his shoulder is still bothering him quite a bit, typically worse at night. PT-OP-F Manual Assessment Start: 04/20/22 17:34 Freq: Status: Active Protocol: Document 04/20/22 16:45 DCW (Rec: 04/20/22 17:59 DCW [id number]) Manual Assessments Soft Tissue Assessment Soft Tissue Mobility Assessment Increased tone along lumbar paraspinals and entire left lat, tenderness to palpation 3 /4: wincing and withdraw left lat Joint Mobility Assessment Joint Mobility Assessment Left winging scapula, measurement spine to medial board at scapular spine: L 7 cm, R 8 cm. Inferior angle: L 11.5 cm, R 10 cm. PT-OP-J Posture/Palpation/Skin Start: 04/20/22 17:34 Freq: Status: Active Protocol: Document 04/20/22 16:45 DCW (Rec: 04/20/22 17:59 DCW [id number]) Posture Evaluation Position Sitting Evaluation View Posterior Scapula Posture (L) Rotated Up,(L) Winged PT-OP-K Range of Motion Start: 04/20/22 17:59 Freq: Status: Active Protocol: Document 04/20/22 16:45 DCW (Rec: 04/20/22 18:02 DCW [id number]) Lumbar Spine Range of Motion Lumbar Spine Active Degrees Testing Position Standing Flexion 80 Extension 20 Lateral Flexion Left 57 Lateral Flexion Right 51 ROM Limitations Soft Tissue Tightness,Pain Comments Lateral flexion measured in cm from fingertip to floor Significant increase in pain with extension and left lateral flexion PT-OP-L Special Tests Start: 04/20/22 17:34 Freq: Status: Active Protocol: Document 04/20/22 16:45 DCW (Rec: 04/20/22 17:59 DCW [id number]) Special Tests Lumbar Spine Special Tests Straight Leg Raise Test Results Negative Standing Flexion Test Results Mild pain Slump Test Results Negative Passive Neck Flexion Test Results Negative Compression Test Results Negative A-P Shearing Test Results Negative PT-OP-M Strength Start: 04/20/22 17:34 Freq: Status: Active Protocol: Document 04/20/22 16:45 DCW (Rec: 04/20/22 17:59 DCW [id number]) Scapula Strength Scapula Manual Muscle Testing Right Adduction 4 Good Left Adduction 3 Fair PT-OP-Q Treatments Start: 04/20/22 17:34 Freq: Status: Active Protocol: Document 05/09/22 16:45 DCW (Rec: 05/09/22 17:35 DCW [id number]) Cardio Equipment Upper Body Ergometer (UBE) Duration (Minutes) 5 RPM 60 Seat Position 12 Height 3 Gym Equipment Cable Column (Body Solid) Lat Pull Down Resistance 30#->60# Therapeutic Ball I's, Y's, and T's Exercise Details Prone I's, Y's, and T's Ball Size/Color Green - 65 cm Body Position Prone Therapeutic Exercises Standing Exercises External Rotation Standing Exercise Name Shoulder ER Side bilateral Resistance Lv 3 Horizontal Abduction Standing Exercise Name Horizontal Abduction Side bilateral Resistance Lv 3 Manual Therapy Treatment Soft Tissue Mobilization Parascapulars Body Location L Infraspinatus, Subscap, Rhomboids Mobilization Type Sustained Pressure,Trigger Point Release Intensity/Depth Moderate Joint Mobilizations Scapulothoracic Joint L Scapulothoracic Direction Lateral Grade III Body Position Supine PT-OP-T Assessment and Plan Start: 04/20/22 17:34 Freq: Status: Active Protocol: Document 05/09/22 16:45 DCW (Rec: 05/09/22 17:35 DCW [id number]) Physical Therapy Assessment Impairments Impairments Functional Activities, Functional Mobility,Posture, ROM,Soft Tissue Mobility, Strength Goals Three Impairment Lumbar ROM restricted due to pain Nursing Home Goal (LTG) Pt to increase pain-free lumbar extension to at least 30? 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 LTG Duration 06/18/22 Two Impairment Pt presents with a winging and clockwise rotated left scapula Nursing Home Goal (LTG) Pt to present with left scapula with equal measurements from spine vs right scapula to demonstrate improved function of parascapular musculature and improved scapular strength LTG Duration 06/18/22 One Impairment Pt does not have an appropriate home exercise program Short Term Goal (STG) Pt to be independent and compliant with an appropriate HEP STG Duration 05/21/22 Assessment Summary Assessment Pt continues to present with left scapular winging, was able to get improved muscle activation in serratus anterior and traps with strengthening exercises today, low back improving due to decreased compensatory movements. Physical Therapy Plan Frequency and Duration Frequency of Treatment 2x/Week Plan of Care Start Date 04/20/22 Plan of Care End Date 06/18/22 Therapeutic Interventions Therapeutic Interventions Home Exercise Program,Joint Mobilizations,Manual Therapy, Neuromuscular Re-education, Patient/Caregiver Education, Self-Care/Home Management,Soft Tissue Mobilization, Therapeutic Activities, Therapeutic Exercises Modalities Cold Pack/Ice Massage,Electric Stimulation,Hot Packs, Ultrasound Next Visit Focus/Plan Next Note Type Treatment Note Next Visit Plan Scapular strengthening, core strengthening, lumbar flexibility
--- NOTE | 2023-01-22 16:08 | PT.OPDS ---
Current Diagnoses Other specified acquired deformities of left upper arm (05/09/22) Low back pain, unspecified (05/09/22) Dorsalgia, unspecified (05/09/22) Unspecified abdominal pain (05/09/22) Weakness (05/09/22) Visit Care Team Role Provider Type Lucinda Alejandro DO Family Provider Non-Staff Specialty: [facility] Practice Address: [address] [place] [address], [address], [address] Email: [email or web address] Leonor Coronel DO Attending Provider Physician Primary Care Provider Referring Provider Specialty: [facility] Address: [address] [place] [address], [place] [address], [place], [address] Email: [email or web address] Visit Number Visit Number 3 Discharge Summary PT-OP-B Current Condition Start: 04/20/22 17:34 Freq: Status: Active Protocol: Document 04/20/22 16:45 DCW (Rec: 04/20/22 17:47 DCW [id number]) Current Condition History of Current Condition Onset Date Long-standing history Current Complaints Low back pain, mid back pain, left scapular pain History of Current Condition Pt is a 26 year old male presenting with a long- standing history of low back, mid back, and left scapular pain. Pt reports that ~2 year ago, he had a lumbar MRI which uncovered bone spurs, but he hasn't gotten anything done with it. Reports he just experiences a deep nagging pain and describes mostly the area of his left lat. Admits he has poor posture, especially when sitting. Worried that the pain in his scapula is related to his heart. 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 Pain is often worse with positioning, depending on how he is laying down, or if his girlfriend leans against him, causing his back to twist . PT-OP-C Subjective Start: 04/20/22 17:34 Freq: Status: Active Protocol: Document 05/09/22 16:45 DCW (Rec: 05/09/22 17:35 DCW [id number]) OP-PT Subjective Patient Comments Patient Comments Pt reports his low back is improving, his shoulder is still bothering him quite a bit, typically worse at night. PT-OP-F Manual Assessment Start: 04/20/22 17:34 Freq: Status: Active Protocol: Document 04/20/22 16:45 DCW (Rec: 04/20/22 17:59 DCW [id number]) Manual Assessments Soft Tissue Assessment Soft Tissue Mobility Assessment Increased tone along lumbar paraspinals and entire left lat, tenderness to palpation 3 /4: wincing and withdraw left lat Joint Mobility Assessment Joint Mobility Assessment Left winging scapula, measurement spine to medial board at scapular spine: L 7 cm, R 8 cm. Inferior angle: L 11.5 cm, R 10 cm. PT-OP-J Posture/Palpation/Skin Start: 04/20/22 17:34 Freq: Status: Active Protocol: Document 04/20/22 16:45 DCW (Rec: 04/20/22 17:59 DCW [id number]) Posture Evaluation Position Sitting Evaluation View Posterior Scapula Posture (L) Rotated Up,(L) Winged PT-OP-K Range of Motion Start: 04/20/22 17:59 Freq: Status: Active Protocol: Document 04/20/22 16:45 DCW (Rec: 04/20/22 18:02 DCW [id number]) Lumbar Spine Range of Motion Lumbar Spine Active Degrees Testing Position Standing Flexion 80 Extension 20 Lateral Flexion Left 57 Lateral Flexion Right 51 ROM Limitations Soft Tissue Tightness,Pain Comments Lateral flexion measured in cm from fingertip to floor Significant increase in pain with extension and left lateral flexion PT-OP-L Special Tests Start: 04/20/22 17:34 Freq: Status: Active Protocol: Document 04/20/22 16:45 DCW (Rec: 04/20/22 17:59 DCW [id number]) Special Tests Lumbar Spine Special Tests Straight Leg Raise Test Results Negative Standing Flexion Test Results Mild pain Slump Test Results Negative Passive Neck Flexion Test Results Negative Compression Test Results Negative A-P Shearing Test Results Negative PT-OP-M Strength Start: 04/20/22 17:34 Freq: Status: Active Protocol: Document 04/20/22 16:45 DCW (Rec: 04/20/22 17:59 DCW [id number]) Scapula Strength Scapula Manual Muscle Testing Right Adduction 4 Good Left Adduction 3 Fair PT-OP-T Assessment and Plan Start: 04/20/22 17:34 Freq: Status: Active Protocol: Document 01/22/23 16:07 DCW (Rec: 01/22/23 16:08 DCW [id number]) Physical Therapy Assessment Assessment Summary Assessment Pt canceled last two visits, no further follow-up appointments scheduled. Pt has now not been seen in eight months. Pt will be discharged from skilled PT at this time, will require a new referral in order to return. Physical Therapy Plan Discharge Physical Therapy Discharge Reasons No Longer Attending PT Next Visit Focus/Plan Next Note Type Discharge Summary
== END 2023-01-25 10:00 | disposition home or self-care (01) ==
LOC: PHYS 16:45
PROVIDERS: Family Provider Family Medicine; PCP Family Medicine; Referring Provider Family Medicine; Visit Provider Family Medicine
DX: R10.9 Unspecified abdominal pain (principal); M54.50 Low back pain, unspecified; M54.9 Dorsalgia, unspecified; R53.1 Weakness; M21.822 Other specified acquired deformities of left upper arm
CPT/HCPCS: 97110; 97140; 97161

== ENCOUNTER 2022-12-22 22:14 | Emergency (ER) | payer OTHER, MEDICAID, SELFPAY ==
[2022-12-22 22:25] VITALS: BP 121/73; PULSE 72; RESP 15; TEMP 37.2; O2SAT 97; BMI 25.8
--- NOTE | 2022-12-22 23:32 | ED.ALLEREA ---
HPI - Allergic Reaction General Chief complaint: Allergic Reaction Stated complaint: Hives, New med Time Seen by Provider: 12/22/22 22:19 Source: patient Mode of arrival: Ambulatory History of Present Illness HPI narrative: 27-year-old male nonsmoker presents with significant other and a chief complaint an allergic reaction that started this afternoon. He was given prescriptions for diclofenac and tizanidine because his back has been acting up and he thinks the reaction maybe to 1 of these medications. Otherwise he denies any exposure to new foods, lotions or pets, no soaps or lotions, no other obvious trigger. He had widespread hives that required itchy, most notable on chest, abdomen and extremities. He may have briefly felt short of breath but no longer does. Denies any GI symptoms such as nausea, vomiting or diarrhea. He denies any face, tongue, lip or throat swelling Related Data Previous Rx's Medication Instructions Recorded omeprazole 20 mg capsule,delayed 20 mg PO DAILY #30 caps 03/01/22 release benzonatate 100 mg capsule 100 mg PO BID PRN cough #20 caps 06/22/22 prednisone 20 mg tablet 20 mg PO DAILY #5 tabs 12/23/22 Allergies Allergy/AdvReac Type Severity Reaction Status Date / Time bee venom protein (honey bee) Allergy Intermediate swelling Verified 06/22/22 07:14 and hives diclofenac Allergy Intermediate Hives Verified 12/23/22 01:11 Review of Systems Review of Systems Narrative: GENERAL: Denies chills, fatigue, malaise, fever, sweats. HEENT: Denies sinus pain, ear pain, sore throat, difficulty swallowing, dizziness. RESPIRATORY: See HPI CARDIOVASCULAR: Denies chest pain, palpitations, orthopnea, edema, GASTROINTESTINAL: Denies nausea, vomiting, abdominal pain, diarrhea, constipation, melena. : Denies dysuria, frequency, incontinence, hematuria, urinary retention. MUSCULOSKELETAL: denies weakness, joint pain, or bony pain SKIN: See HPI NEUROLOGIC: Denies weakness, headache, numbness, change in speech, confusion, seizures, incoordination. PSYCHIATRIC: No concerning psychosocial issues. 12 point review of systems is negative except for those stated above Patient History Medical History (Updated 12/23/22 @ 00:45 by Eugenio Oates DO) Asthma (~1999) Chicken pox (~1999) Chronic back pain (~2019) Fracture (~2020) Generalized anxiety disorder (~2019) Herpes (~2014) History of bipolar disorder Pancreatitis Family History Mother Hypertension Grandfather History of heart disease Grandmother Influenza Grandfather Cancer Grandmother Cancer Social History Smoking Status: Former smoker substance use type: marijuana Smoking Status: Former smoker tobacco type: smokeless tobacco alcohol intake frequency: holidays/special occasions only Alcohol type: hard liquor Substance Use Type: marijuana Exam Narrative Exam Narrative: GENERAL: [27] year old patient appears stated age. Well-developed patient, in mild distress. HEAD: Atraumatic. Normocephalic. EYES: Pupils equal round and reactive. Extraocular motions intact. No scleral icterus. No injection or drainage. ENT: No face, tongue, lip or throat swelling Nose without bleeding, purulent drainage. Throat without erythema, tonsillar hypertrophy or exudate. Airway patent. NECK: Trachea midline. Non tender CARDIOVASCULAR: Regular rate and rhythm without murmurs, gallops, or rubs. RESPIRATORY: Clear to auscultation. Breath sounds equal bilaterally. No wheezes, rales, or rhonchi. GASTROINTESTINAL: Abdomen soft, non-tender, nondistended. EXTREMITIES: No edema or joint tenderness. BACK: Nontender without deformity or crepitance. No flank tenderness. NEURO: AOx3. SKIN: Moderate amount of highs that are pruritic blanching, most notable on chest, abdomen and upper extremity No rash or erythema of visible areas Initial Vital Signs Initial Vital Signs: Vital Signs Temperature 98.9 F 12/22/22 22:25 Pulse Rate 72 12/22/22 22:25 Respiratory Rate 15 12/22/22 22:25 Blood Pressure 121/73 12/22/22 22:25 Pulse Oximetry 97 12/22/22 22:25 Oxygen Delivery Method Room Air 12/22/22 22:25 Course Orders Ordered: Discontinued Medications Diphenhydramine HCl (Diphenhydramine 50 Mg/Ml Vial) 50 mg IV NOW ONE Stop: 12/23/22 00:11 Last Admin: 12/23/22 00:23 Dose: 50 mg Documented By: PATRICE Epinephrine HCl (Epinephrine 1 Mg/Ml) 0.5 mg IM NOW ONE Stop: 12/23/22 00:11 Last Admin: 12/23/22 00:16 Dose: Not Given Documented By: PATRICE Famotidine (Famotidine 20 Mg/2 Ml Vial) 20 mg IV NOW PATRICIA Last Admin: 12/23/22 00:23 Dose: 20 mg Documented By: PATRICE Methylprednisolone (Methylprednisolone 125 Mg/2 Ml Vial) 125 mg IV NOW ONE Stop: 12/23/22 00:11 Last Admin: 12/23/22 00:23 Dose: 125 mg Documented By: PATRICE Vital Signs Vital signs: Vital Signs - 8 hr 12/23/22 00:18 12/23/22 00:19 12/23/22 00:19 Pulse Rate 61 Blood Pressure 112/59 L Pulse Oximetry 100 96 Oxygen Delivery Method 12/23/22 00:30 12/23/22 00:38 12/23/22 00:38 Pulse Rate 62 59 L Blood Pressure 110/68 Pulse Oximetry 95 96 Oxygen Delivery Method Room Air 12/23/22 01:00 12/23/22 01:00 Pulse Rate 66 Blood Pressure 113/69 Pulse Oximetry 94 Oxygen Delivery Method MDM - Allergic Reaction MDM Narrative Medical decision making narrative: [27] year old patient presents with allergic reaction Prior Charts reviewed in our EMR Primary Historian: patient Patient's history and physical exam are reassuring, no signs of anaphylaxis, significant response to medications above, near-complete resolution of symptoms. Patient encouraged to avoid potential triggers, prescription sent for steroids to his pharmacy. S: Patient's symptoms improved over duration of stay with above-stated therapies. Findings and discharge diagnosis discussed with patient/family followed by verbalization of understanding Return precautions discussed with patient/family whom verbalize understanding of diagnosis and plan Discharge Plan Departure Patient Disposition: Home Clinical Impression: Allergic reaction Instructions: DI for General Allergic Reactions Activity Restrictions/Additional Instructions: *You have been diagnosed with [allergic reaction] *What to do: *Please continue to take your regular medications as directed. [x] New medication prescriptions sent to your pharmacy: [[facility] ] [ ] New medication written as a paper prescription [ ] No new medications given *Please consider the routine use of over the counter antihistamines over the next few days 1. H1 blockers: Benadryl (Diphenhydramine), Zyrtec (Cetirizine), Heena (Fexofenadine) or Claritin (Loratadine) along with, 2. H2 blockers: Famotidine or Cimetidine *If you can please avoid what triggered your reaction today *Please follow up with your primary care provider in 2-3 days, call for an appointment. Let them know you were seen in the Emergency Department and that we ask that you be seen in follow up. We will electronically transmit a record of today's note if your PCP is in our system *If you do not have a primary care provider please contact the [facility] Resource line at [phone]. They will ask some questions about your medical history and help get you set up with a doctor in the community. *Return to Emergency Department if you should have any new, worsening or concerning symptoms, such as swelling of tongue, throat, trouble breathing, or other concerning symptoms Prescriptions: New prednisone 20 mg tablet 20 mg PO DAILY Qty: 5 0RF Rx Instructions: administer with food or milk No Action benzonatate 100 mg capsule 100 mg PO BID PRN (Reason: cough) Qty: 20 0RF omeprazole 20 mg capsule,delayed release(DR/EC) 20 mg PO DAILY Qty: 30 11RF Referrals: Leonor Coronel DO [Primary Care Provider] - Stand Alone Forms: Patient Portal/API
[2022-12-23 00:18] VITALS: O2SAT 100
[2022-12-23 00:19] VITALS: BP 112/59; PULSE 61; O2SAT 96
[2022-12-23] MEDS: methylPREDNISolone 125 MG/2 ML VIAL IV (00:23)
[2022-12-23] MEDS: diphenhydrAMINE 50 MG/ML VIAL IV (00:23)
[2022-12-23] MEDS: FAMOTIDINE 20 MG/2 ML VIAL IV (00:23)
[2022-12-23 00:30] VITALS: PULSE 62; O2SAT 95
[2022-12-23 00:38] VITALS: BP 110/68; PULSE 59; O2SAT 96
[2022-12-23 01:00] VITALS: BP 113/69; PULSE 66; O2SAT 94
== END 2022-12-23 01:21 | disposition home or self-care (01) ==
PROVIDERS: Emergency Provider Emergency Medicine; Family Provider Family Medicine; PCP Family Medicine
DX: L50.9 Urticaria, unspecified (principal); T78.40XA Allergy, unspecified, initial encounter
CPT/HCPCS: 96374; 96375; 99283; 99284; J1200; J2930

== ENCOUNTER 2023-07-13 13:45 | Outpatient (RCR) | payer OTHER, MEDICAID, SELFPAY ==
--- NOTE | 2023-05-04 16:30 | PT.OIE ---
Current Diagnoses Low back pain, unspecified (05/04/23) Dorsalgia, unspecified (05/04/23) Unspecified abdominal pain (05/04/23) Past Medical History (Last Updated 04/30/22 @ 12:16 by Leonor Coronel DO) Asthma (~1999) Chicken pox (~1999) Chronic back pain (~2019) Fracture (~2020) Generalized anxiety disorder (~2019) Herpes (~2014) History of bipolar disorder Pancreatitis Visit Care Team Role Provider Type Antonina Rizzo PA-C Attending Provider Non-Staff Family Provider Primary Care Provider Referring Provider Specialty: Medical Address: [address] [place] [address], [id number] Email: Physical Therapy Initial Evaluation PT-OP-A Visit Information Start: 05/04/23 12:18 Freq: Status: Active Protocol: Document 05/04/23 12:18 NM (Rec: 05/04/23 16:14 NM [id number]) Out-Patient Physical Therapy Visit Information Visit Information Visit Type Initial Evaluation Visit Note 24 visits Visit Start Time 12:15 Visit Stop Time 13:00 Visit Number 1 Evaluation Information Evaluation Date 05/04/23 PT-OP-B Current Condition Start: 05/04/23 12:18 Freq: Status: Active Protocol: Document 05/04/23 12:18 NM (Rec: 05/04/23 14:19 NM [id number]) Current Condition History of Current Condition Onset Date October 2022 Current Complaints weakness, pain History of Current Condition Pt presents with low back pain after an injury in October while working in [place] when pulling a net back out of the water without help. 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 He worked through the pain and has 2 ED visits. He reinjured it a second time while stacking wood in the fall of 2022. 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 He does not do anything anymore recreationally (e.g. basketball). Surgeon is recommending injections. He reports that his back wears outs, someone is pressing on my back/nerves. He reports that his back was often sore prior to the initial injury. He is having most difficulty with lifting, twisting, standing (needs to lean on something); able to bend forward but causes pain the next day. He is currently taking care of his . No numbness or tingling, but reports pain in his buttocks sore. Pt reports changes in balance, bumping into objects, less movement, poor endurance . No saddle anesthesia, bowel or bladder. No falls PT-OP-C Subjective Start: 05/04/23 12:18 Freq: Status: Active Protocol: Document 05/04/23 12:18 NM (Rec: 05/04/23 14:19 NM [id number]) OP-PT Subjective Patient Comments Patient Comments see hx above for pt report Patient Questionnaires Oswestry Low Back Index Oswestry Score 50 OP-PT Pain Assessment Pain Assessment Grid Paper Pain Assessment Grid Completed Yes Location Lumbar spine Pain Location Details low back, directly in middle of spine Intensity 2 Scale Used Numeric (0 - 10) Description Aching Description- Other 5/10 worst unless goes out Frequency Constant Pain Duration days Radiating Location to buttock Pain Aggravating Factors Position,Changing Position,ADL 's,Activity,Exercise,Standing, Bending,Lifting,Coughing Pain Alleviating Factors None,Medication Home Pain Medication Use Pain Medications Used Yes: gabapentin, lyrica Pain Behaviors Pain Behaviors Facial Grimacing,Guarding, Holding Area PT-OP-D Balance Start: 05/04/23 12:18 Freq: Status: Active Protocol: Document 05/04/23 12:18 NM (Rec: 05/04/23 16:14 NM [id number]) Balance Tests Romberg Romberg 30 sec; no sway Single Limb Standing Single Limb- Right 30 sec Single Limb- Left 25 sec Tandem Tandem Standing 10 sec BLE; increased trunk sway PT-OP-E Functional Tests Start: 05/04/23 12:18 Freq: Status: Active Protocol: Document 05/04/23 12:18 NM (Rec: 05/04/23 16:14 NM [id number]) Functional Tests 30 Second Sit to Stand Test Score 20 Comments no pain reported; reports fatiguing toward end PT-OP-F Manual Assessment Start: 05/04/23 12:18 Freq: Status: Active Protocol: Document 05/04/23 12:18 NM (Rec: 05/04/23 16:14 NM [id number]) Manual Assessments Soft Tissue Assessment Soft Tissue Mobility Assessment Tenderness and increased tone of R glutes, especially external rotators (piriformis) Joint Mobility Assessment Joint Mobility Assessment Tenderness with posterior- anterior spinous process springing along lower lumbar spine (L4-L5) and S1, near R PSIS. Piriformis and lumbar spine concordant pain reproduced with prone hip IR. Full hip AROM and PROM in supine PT-OP-G Mobility & Gait Start: 05/04/23 12:18 Freq: Status: Active Protocol: Document 05/04/23 12:18 NM (Rec: 05/04/23 16:14 NM [id number]) OP Gait Assessment Gait Gait Assistance Required: Independent Distance (Feet) 150 Assistive Devices Assistive Device None Gait Deviations General Gait Pattern Lateral Trunk Lean Factors Limiting Gait Function Factors Limiting Gait Function Decreased Activity Tolerance, Pain Comments Gait Comments Demos slight R lateral trunk shift with gait PT-OP-H Neuro Start: 05/04/23 12:18 Freq: Status: Active Protocol: Document 05/04/23 12:18 NM (Rec: 05/04/23 14:19 NM [id number]) Sensation Evaluation Gross Sensation Gross Sensation WNL Comments Summary Comments BLE intact to light touch sensation equally PT-OP-J Posture/Palpation/Skin Start: 05/04/23 12:18 Freq: Status: Active Protocol: Document 05/04/23 12:18 NM (Rec: 05/04/23 16:14 NM [id number]) Posture Evaluation Position Standing Evaluation View post, ant, lateral Head/C-Spine Posture Forward Head T-Spine Posture Neutral Thorax Posture Neutral L-Spine Posture Increased Lordosis Pelvis Posture Anteriorly Tilted Weight Distribution Balanced Hip Posture (L) Externally Rotated,(R) Externally Rotated Knee Posture (L) Neutral,(R) Neutral Ankle/Foot Posture (L) Pronated,(R) Pronated Palpation Assessment Location Lumbar spine Palpation Location paraspinals, spinous/ transverse processes, glutes, QL Palpation Findings Soft Tissue Tightness,Muscle Guarding,Tenderness Palpation Details Tenderness along R glutes with palpation, worse with passive prone hip IR. Minimal restrictions and tenderness at R QL. Minimal tenderness (pt states not pain) along L4-L5 spinous processes. Atrophy of B paraspinals PT-OP-K Range of Motion Start: 05/04/23 12:18 Freq: Status: Active Protocol: Document 05/04/23 12:18 NM (Rec: 05/04/23 16:14 NM [id number]) Lumbar Spine Range of Motion Lumbar Spine Active Percentage Testing Position Standing Flexion 100 Extension 100 Rotation Left 8 Rotation Right 8 Lateral Flexion Left 100 Lateral Flexion Right 100 ROM Limitations Soft Tissue Tightness,Muscle Weakness Comments No pain reported into extension but pt states feels weak in that direction. Pain reported with return to neutral spine after R lateral flexion. Lateral flex to B knee joint line (100%) PT-OP-L Special Tests Start: 05/04/23 12:18 Freq: Status: Active Protocol: Document 05/04/23 12:18 NM (Rec: 05/04/23 16:14 NM [id number]) Special Tests Lumbar Spine Special Tests Distraction Test Results + Comments symptom relief Kunz/Quadrant Test Results + Comments reports minimal pain R trunk; local Straight Leg Raise Test Results + Comments RLE Slump Test Results - PT-OP-M Strength Start: 05/04/23 12:18 Freq: Status: Active Protocol: Document 05/04/23 12:18 NM (Rec: 05/04/23 16:14 NM [id number]) Trunk Strength Trunk Manual Muscle Testing Testing Position supine, sitting, standing Flexion 4 Good Extension 4 Good Rotation Left 4+ Good+ Rotation Right 4+ Good+ Lateral Flexion Left 4+ Good+ Lateral Flexion Right 4+ Good+ Comments No pain with resisted movements Hip Strength Hip Manual Muscle Testing Right Flexion (L2) 4+ Good+ Extension (S1) 4+ Good+ Abduction 4+ Good+ Adduction 4+ Good+ External Rotation 4+ Good+ Internal Rotation 4+ Good+ Left Flexion (L2) 4+ Good+ Extension (S1) 4+ Good+ Abduction 4+ Good+ Adduction 4+ Good+ External Rotation 4+ Good+ Internal Rotation 4+ Good+ Knee Strength Knee Manual Muscle Testing Right Flexion (S2) 4+ Good+ Extension (L3) 4+ Good+ Left Flexion (S2) 4+ Good+ Extension (L3) 4+ Good+ Ankle/Foot Strength Ankle and Foot Manual Muscle Testing Left Dorsiflexion (L4) 4+ Good+ Plantarflexion (S1) 4+ Good+ Right Dorsiflexion (L4) 4+ Good+ Plantarflexion (S1) 4+ Good+ PT-OP-Q Treatments Start: 05/04/23 12:18 Freq: Status: Active Protocol: Document 05/04/23 12:18 NM (Rec: 05/04/23 16:14 NM [id number]) Therapeutic Exercises Supine Exercises Lumbar distraction Supine Exercise Name hips/knees 90/90 flexion ( added to HEP) Side bilateral Equipment Used BLE elevated on bolster Reps/Minutes 3 minutes Comments reports good symptom relief Sitting Exercises Piriformis mobilization Sitting Exercise Name seated on small lacrosse ball Side bilateral Equipment Used to pt tolerance, rolling on small ball for muscle relaxation Reps/Minutes 2 minutes ea Figure 4 stretch Sitting Exercise Name added to HEP Side bilateral Reps/Minutes 2x30 ea Comments reports good glute/hip ER stretch, not painful; R>L Self-Care/Home Management Treatment Education Patient Education Home Exercise Program,Pain Management Other Education Educated provided about HEP ( supine lumbar distraction, self-mobilization of piriformis, seated figure 4 stretch), anatomy/physiology of lumbar spine disc pain, exam findings, POC. PT also educated pt on remaining active (gentle activity) as tolerated to decrease lumbar spine pain and improve activity tolerance in preparation for return to work (e.g. walking program). PT-OP-T Assessment and Plan Start: 05/04/23 12:18 Freq: Status: Active Protocol: Document 05/04/23 12:18 NM (Rec: 05/04/23 16:14 VT [id number]) Physical Therapy Assessment Rehab Potential Rehabilitation Potential Good Evaluation Complexity Number of Personal Factors/Comorbidities 1-2 Number of Body Systems Impaired 1-2 Clinical Presentation at Evaluation Stable Impairments Impairments Activity Tolerance,Balance, Functional Activities, Functional Mobility,Gait, Integument,Pain,Posture,ROM, Sensation,Soft Tissue Mobility ,Strength,Tone Other Concerns Barriers to Rehabilitation Pt can only attend sessions 1x /wk due to other commitments Goals Four Impairment strength Impairment trunk flexion MMT 4/5 Short Term Goal (STG) Pt will be able to maintain trunk flexion MMT position (5/ 5 arms behind head) with B scapula cleared from floor for at least 10 seconds in order to demonstrate improved trunk strength for return to work STG Duration 5 weeks Halfway Goal (LTG) Pt will be able to maintain trunk flexion MMT position (5/ 5 arms behind head) with B scapula cleared from floor for at least 15 seconds in order to demonstrate improved trunk strength for return to work LTG Duration 10 weeks Three Impairment activity Impairment Pt unable to exercise/ participate in activity due to pain and fear of injury Short Term Goal (STG) Pt will initiate HEP and report compliance with HEP at least 3x/wk in order to begin compliance with independent exercise post discharge STG Duration 5 weeks Reimbursement Manager Goal (LTG) Pt will return to independent exercise program at least 3x/ wk in order to maintain strength gains and activity level for return to work LTG Duration 10 weeks Two Impairment strength Impairment unable to perform plank ( standard or modified) Short Term Goal (STG) Pt will be able to perform a plank for at least 20 seconds in order to demonstrate improved core and lumbar extensor strength for return to work STG Duration 5 weeks Halfway Goal (LTG) Pt will be able to perform a plank for at least 45 seconds in order to demonstrate improved core and lumbar extensor strength for return to work LTG Duration 10 weeks One Impairment function Impairment Oswestry 8/50 Halfway Goal (LTG) Pt will decrease Oswestry score to <8/50 in order to demonstrate improved activity tolerance, QOL, and pain management LTG Duration 10 weeks Assessment Summary Assessment Pt is a 27 y.o. male presenting with chronic lumbar spine pain beginning in October 2022. Pt's pain is discogenic in nature with pain referred to the buttocks, R>L. He presents with full trunk ROM but with decreased tolerance for standing extension. Symptoms are minimally provoked with straight leg raise and quadrant (local) tests, and they are relieved with lumbar distraction. Pt prefers lumbar flexion but is able to perform prone extension tests without increased symptoms. He has tenderness along L4-S1 spinous processes and his R piriformis, which is further aggravated with concordant pain during passive prone hip IR. Bilateral hip/knee strength 4+/5. No changes in sensation. 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 Pt would benefit from skilled PT for progressive trunk/core/BLE strengthening and exercise, in addition to activity modification and postural re- education, in order to decrease pain symptoms, improve QOL, and return to PLOF. Physical Therapy Plan Frequency and Duration Frequency of Treatment 1x/Week Duration of treatment (weeks) 10 Plan of Care Start Date 05/04/23 Plan of Care End Date 07/13/23 Therapeutic Interventions Therapeutic Interventions Aquatic Therapy,Balance Training,Coordination Training ,Gait Training,Home Exercise Program,Joint Mobilizations, Manual Therapy,Neuromuscular Re-education,Orthotic/ Prosthetic Management,Patient/ Caregiver Education,Self-Care/ Home Management,Sensory Integration,Soft Tissue Mobilization,Taping, Therapeutic Activities, Therapeutic Exercises Modalities Cold Pack/Ice Massage,Electric Stimulation,Hot Packs, Traction- Mechanical, Ultrasound,Vasopneumatic Devices Next Visit Focus/Plan Next Note Type Treatment Note Next Visit Plan Flexion-biased core strengthening and stretches, gentle lumbar extensor strengthening as tolerated, side steps, squats Initiate walking program/ exercise program and log Manual: lumbar mobilizations grade II, disc distraction/ traction
--- NOTE | 2023-05-04 16:35 | PT.OPPOC ---
Physical, Occupational & Speech Therapy At [facility] Current Diagnoses Low back pain, unspecified (05/04/23) Dorsalgia, unspecified (05/04/23) Unspecified abdominal pain (05/04/23) Visit Care Team Role Provider Type Antonina Rizzo PA-C Attending Provider Non-Staff Family Provider Primary Care Provider Referring Provider Specialty: Medical Address: [address] [place] [address], [id number] Email: Plan Of Care PT-OP-T Assessment and Plan Start: 05/04/23 12:18 Freq: Status: Active Protocol: Document 05/04/23 12:18 NM (Rec: 05/04/23 16:14 NM [id number]) Physical Therapy Assessment Rehab Potential Rehabilitation Potential Good Evaluation Complexity Number of Personal Factors/Comorbidities 1-2 Number of Body Systems Impaired 1-2 Clinical Presentation at Evaluation Stable Impairments Impairments Activity Tolerance,Balance, Functional Activities, Functional Mobility,Gait, Integument,Pain,Posture,ROM, Sensation,Soft Tissue Mobility ,Strength,Tone Other Concerns Barriers to Rehabilitation Pt can only attend sessions 1x /wk due to other commitments Goals Four Impairment strength Impairment trunk flexion MMT 4/5 Short Term Goal (STG) Pt will be able to maintain trunk flexion MMT position (5/ 5 arms behind head) with B scapula cleared from floor for at least 10 seconds in order to demonstrate improved trunk strength for return to work STG Duration 5 weeks Assisted Goal (LTG) Pt will be able to maintain trunk flexion MMT position (5/ 5 arms behind head) with B scapula cleared from floor for at least 15 seconds in order to demonstrate improved trunk strength for return to work LTG Duration 10 weeks Three Impairment activity Impairment Pt unable to exercise/ participate in activity due to pain and fear of injury Short Term Goal (STG) Pt will initiate HEP and report compliance with HEP at least 3x/wk in order to begin compliance with independent exercise post discharge STG Duration 5 weeks Die Cast Operator Goal (LTG) Pt will return to independent exercise program at least 3x/ wk in order to maintain strength gains and activity level for return to work LTG Duration 10 weeks Two Impairment strength Impairment unable to perform plank ( standard or modified) Short Term Goal (STG) Pt will be able to perform a plank for at least 20 seconds in order to demonstrate improved core and lumbar extensor strength for return to work STG Duration 5 weeks Die Cast Operator Goal (LTG) Pt will be able to perform a plank for at least 45 seconds in order to demonstrate improved core and lumbar extensor strength for return to work LTG Duration 10 weeks One Impairment function Impairment Oswestry 8/50 Die Cast Operator Goal (LTG) Pt will decrease Oswestry score to <8/50 in order to demonstrate improved activity tolerance, QOL, and pain management LTG Duration 10 weeks Assessment Summary Assessment Pt is a 27 y.o. male presenting with chronic lumbar spine pain beginning in October 2022. Pt's pain is discogenic in nature with pain referred to the buttocks, R>L. He presents with full trunk ROM but with decreased tolerance for standing extension. Symptoms are minimally provoked with straight leg raise and quadrant (local) tests, and they are relieved with lumbar distraction. Pt prefers lumbar flexion but is able to perform prone extension tests without increased symptoms. He has tenderness along L4-S1 spinous processes and his R piriformis, which is further aggravated with concordant pain during passive prone hip IR. Bilateral hip/knee strength 4+/5. No changes in sensation. 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 Pt would benefit from skilled PT for progressive trunk/core/BLE strengthening and exercise, in addition to activity modification and postural re- education, in order to decrease pain symptoms, improve QOL, and return to PLOF. Physical Therapy Plan Frequency and Duration Frequency of Treatment 1x/Week Duration of treatment (weeks) 10 Plan of Care Start Date 05/04/23 Plan of Care End Date 07/13/23 Therapeutic Interventions Therapeutic Interventions Aquatic Therapy,Balance Training,Coordination Training ,Gait Training,Home Exercise Program,Joint Mobilizations, Manual Therapy,Neuromuscular Re-education,Orthotic/ Prosthetic Management,Patient/ Caregiver Education,Self-Care/ Home Management,Sensory Integration,Soft Tissue Mobilization,Taping, Therapeutic Activities, Therapeutic Exercises Modalities Cold Pack/Ice Massage,Electric Stimulation,Hot Packs, Traction- Mechanical, Ultrasound,Vasopneumatic Devices Next Visit Focus/Plan Next Note Type Treatment Note Next Visit Plan Flexion-biased core strengthening and stretches, gentle lumbar extensor strengthening as tolerated, side steps, squats Initiate walking program/ exercise program and log Manual: lumbar mobilizations grade II, disc distraction/ traction Plan of Care Dates Plan of Care Start Date 05/04/23 Plan of Care End Date 07/13/23 Electronically Signed by: Britney Posey, PT 05/04/23 4923 If you are in agreement with this Plan of Care, please return a signed and dated copy. I have reviewed this Plan of Care and certify that the skilled therapy services above are required to meet the patient?s needs. Physician Signature Date Printed Name and Credentials Clinical Instructor Signature Printed Name and Credentials
--- NOTE | 2023-05-11 15:30 | PT.OTN ---
Current Diagnoses Low back pain, unspecified (05/11/23) Dorsalgia, unspecified (05/11/23) Unspecified abdominal pain (05/11/23) Physical Therapy Treatment Note PT-OP-A Visit Information Start: 05/04/23 12:18 Freq: Status: Active Protocol: Document 05/11/23 14:36 SP (Rec: 05/11/23 16:27 SP [id number]) Out-Patient Physical Therapy Visit Information Visit Information Visit Type Treatment Note Visit Start Time 14:36 Visit Stop Time 15:30 Visit Number 2 Number of RETANNER Visits 1 Evaluation Information Evaluation Date 05/04/23 PT-OP-B Current Condition Start: 05/04/23 12:18 Freq: Status: Active Protocol: Document 05/04/23 12:18 NM (Rec: 05/04/23 14:19 NM [id number]) Current Condition History of Current Condition Onset Date October 2022 Current Complaints weakness, pain History of Current Condition Pt presents with low back pain after an injury in October while working in [place] when pulling a net back out of the water without help. 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 He worked through the pain and has 2 ED visits. He reinjured it a second time while stacking wood in the fall of 2022. 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 He does not do anything anymore recreationally (e.g. basketball). Surgeon is recommending injections. He reports that his back wears outs, someone is pressing on my back/nerves. He reports that his back was often sore prior to the initial injury. He is having most difficulty with lifting, twisting, standing (needs to lean on something); able to bend forward but causes pain the next day. He is currently taking care of his . No numbness or tingling, but reports pain in his buttocks sore. Pt reports changes in balance, bumping into objects, less movement, poor endurance . No saddle anesthesia, bowel or bladder. No falls PT-OP-C Subjective Start: 05/04/23 12:18 Freq: Status: Active Protocol: Document 05/11/23 14:36 SP (Rec: 05/11/23 16:27 SP [id number]) OP-PT Subjective Patient Comments Patient Comments Pt report back goes out when walking, in past before PT, has been long time LBP. Back hurting holding little 9mo old , trying keep good posture. PT-OP-D Balance Start: 05/04/23 12:18 Freq: Status: Active Protocol: Document 05/04/23 12:18 NM (Rec: 05/04/23 16:14 NM [id number]) Balance Tests Romberg Romberg 30 sec; no sway Single Limb Standing Single Limb- Right 30 sec Single Limb- Left 25 sec Tandem Tandem Standing 10 sec BLE; increased trunk sway PT-OP-E Functional Tests Start: 05/04/23 12:18 Freq: Status: Active Protocol: Document 05/04/23 12:18 NM (Rec: 05/04/23 16:14 NM [id number]) Functional Tests 30 Second Sit to Stand Test Score 20 Comments no pain reported; reports fatiguing toward end PT-OP-F Manual Assessment Start: 05/04/23 12:18 Freq: Status: Active Protocol: Document 05/04/23 12:18 NM (Rec: 05/04/23 16:14 NM [id number]) Manual Assessments Soft Tissue Assessment Soft Tissue Mobility Assessment Tenderness and increased tone of R glutes, especially external rotators (piriformis) Joint Mobility Assessment Joint Mobility Assessment Tenderness with posterior- anterior spinous process springing along lower lumbar spine (L4-L5) and S1, near R PSIS. Piriformis and lumbar spine concordant pain reproduced with prone hip IR. Full hip AROM and PROM in supine PT-OP-G Mobility & Gait Start: 05/04/23 12:18 Freq: Status: Active Protocol: Document 05/04/23 12:18 NM (Rec: 05/04/23 16:14 NM [id number]) OP Gait Assessment Gait Gait Assistance Required: Independent Distance (Feet) 150 Assistive Devices Assistive Device None Gait Deviations General Gait Pattern Lateral Trunk Lean Factors Limiting Gait Function Factors Limiting Gait Function Decreased Activity Tolerance, Pain Comments Gait Comments Demos slight R lateral trunk shift with gait PT-OP-H Neuro Start: 05/04/23 12:18 Freq: Status: Active Protocol: Document 05/04/23 12:18 NM (Rec: 05/04/23 14:19 NM [id number]) Sensation Evaluation Gross Sensation Gross Sensation WNL Comments Summary Comments BLE intact to light touch sensation equally PT-OP-J Posture/Palpation/Skin Start: 05/04/23 12:18 Freq: Status: Active Protocol: Document 05/04/23 12:18 NM (Rec: 05/04/23 16:14 NM [id number]) Posture Evaluation Position Standing Evaluation View post, ant, lateral Head/C-Spine Posture Forward Head T-Spine Posture Neutral Thorax Posture Neutral L-Spine Posture Increased Lordosis Pelvis Posture Anteriorly Tilted Weight Distribution Balanced Hip Posture (L) Externally Rotated,(R) Externally Rotated Knee Posture (L) Neutral,(R) Neutral Ankle/Foot Posture (L) Pronated,(R) Pronated Palpation Assessment Location Lumbar spine Palpation Location paraspinals, spinous/ transverse processes, glutes, QL Palpation Findings Soft Tissue Tightness,Muscle Guarding,Tenderness Palpation Details Tenderness along R glutes with palpation, worse with passive prone hip IR. Minimal restrictions and tenderness at R QL. Minimal tenderness (pt states not pain) along L4-L5 spinous processes. Atrophy of B paraspinals PT-OP-K Range of Motion Start: 05/04/23 12:18 Freq: Status: Active Protocol: Document 05/04/23 12:18 NM (Rec: 05/04/23 16:14 NM [id number]) Lumbar Spine Range of Motion Lumbar Spine Active Percentage Testing Position Standing Flexion 100 Extension 100 Rotation Left 8 Rotation Right 8 Lateral Flexion Left 100 Lateral Flexion Right 100 ROM Limitations Soft Tissue Tightness,Muscle Weakness Comments No pain reported into extension but pt states feels weak in that direction. Pain reported with return to neutral spine after R lateral flexion. Lateral flex to B knee joint line (100%) PT-OP-L Special Tests Start: 05/04/23 12:18 Freq: Status: Active Protocol: Document 05/04/23 12:18 NM (Rec: 05/04/23 16:14 NM [id number]) Special Tests Lumbar Spine Special Tests Distraction Test Results + Comments symptom relief Kunz/Quadrant Test Results + Comments reports minimal pain R trunk; local Straight Leg Raise Test Results + Comments RLE Slump Test Results - PT-OP-M Strength Start: 05/04/23 12:18 Freq: Status: Active Protocol: Document 05/04/23 12:18 NM (Rec: 05/04/23 16:14 NM [id number]) Trunk Strength Trunk Manual Muscle Testing Testing Position supine, sitting, standing Flexion 4 Good Extension 4 Good Rotation Left 4+ Good+ Rotation Right 4+ Good+ Lateral Flexion Left 4+ Good+ Lateral Flexion Right 4+ Good+ Comments No pain with resisted movements Hip Strength Hip Manual Muscle Testing Right Flexion (L2) 4+ Good+ Extension (S1) 4+ Good+ Abduction 4+ Good+ Adduction 4+ Good+ External Rotation 4+ Good+ Internal Rotation 4+ Good+ Left Flexion (L2) 4+ Good+ Extension (S1) 4+ Good+ Abduction 4+ Good+ Adduction 4+ Good+ External Rotation 4+ Good+ Internal Rotation 4+ Good+ Knee Strength Knee Manual Muscle Testing Right Flexion (S2) 4+ Good+ Extension (L3) 4+ Good+ Left Flexion (S2) 4+ Good+ Extension (L3) 4+ Good+ Ankle/Foot Strength Ankle and Foot Manual Muscle Testing Left Dorsiflexion (L4) 4+ Good+ Plantarflexion (S1) 4+ Good+ Right Dorsiflexion (L4) 4+ Good+ Plantarflexion (S1) 4+ Good+ PT-OP-Q Treatments Start: 05/04/23 12:18 Freq: Status: Active Protocol: Document 05/11/23 14:36 SP (Rec: 05/11/23 16:27 SP [id number]) Therapeutic Exercises Supine Exercises Pelvic tilt & TA Supine Exercise Name added to HEP Reps/Minutes many reps throughout tx Comments cued ed: tailbone tuck ceiling/floor, slow pacing painfree range diphramatic breath Equipment Used hand on belly Reps/Minutes 5 reps Comments ed for neutral pelvis, good belly raise/lower FIg 4 Supine Exercise Name trialed in PT- feels better than sitting- added to HEP Side bilateral Resistance R>L tightness Reps/Minutes 60 Comments thinks just weak in back sitting version Lumbar distraction Supine Exercise Name hips/knees 90/90 flexion ( added to HEP) Side bilateral Equipment Used BLE elevated over 75cm tball- therapist inferior ankle pull Comments reports good symptom relief sustained hold and small range pelvic F/B/L Sidelying Exercises open book Sidelying Exercise Name added to HEP- crissy well Side bilateral Equipment Used Ed very slow f/b, head turn with arm, knees bent/back still/no rot Reps/Minutes 5 reps Comments mod VCs and tactile scap glide fac/TS rot, improved form post manual PROM Sitting Exercises seated on Tball Sitting Exercise Name 1. pelvic tilts F/B/L 2. june (unweight foot from floor) Resistance 75cm tball Equipment Used near table stab- PRN x1 Reps/Minutes 1. 5 reps x3 2. approx 3 reps each side then 3 SH x2 each side Comments cued tall NS/TA posturing- Pt improved TA/stab with reps- painfree TA STS Sitting Exercise Name added to HEP: improved painfree with reps Reps/Minutes x10 total Comments Max VCs scap squeeze, CS retract neutral, hip hinge /c TA asc, slow descend Manual Therapy Treatment Soft Tissue Mobilization R>L back, hip Body Location B ES, R glut med/max, R piriformis Mobilization Type Strumming,Sustained Pressure, Other Intensity/Depth Moderate Body Position Prone over pillows Comments manual STMs, gentle sustained pressure MWM pelvic tilts & hip IR/ER, discomfort R SI end feel tension IR on R so stopped. Self-Care/Home Management Treatment Education Patient Education Body Mechanics,Home Exercise Program,Joint Protection,Pain Management,Posture Other Education Much education on proper elongated trunk/pelvic alignment with posture sitting mid A/P pelvic tilt front high/low table vs & 75cm tball , max cues& reps for carryover STS need for rhomboid&TA&CS retract neutral & hip hinge asc/desc, arms across chest helped with posture. Reviewed body mechanics facing 9mo baby girl's crib squat wide stance assist her out of crib, try allow baby to do what can get out of crib for progression in mobility I. Discussed briefly support his body mechanics to support daughter's trunk sitting uneven stab and quadruped to be sure his straight back. Pt good understanding and improved mechanics painfree with reps. PT-OP-T Assessment and Plan Start: 05/04/23 12:18 Freq: Status: Active Protocol: Document 05/11/23 14:36 SP (Rec: 05/11/23 16:27 SP [id number]) Physical Therapy Assessment Goals Four Impairment strength Impairment trunk flexion MMT 4/5 Short Term Goal (STG) Pt will be able to maintain trunk flexion MMT position (5/ 5 arms behind head) with B scapula cleared from floor for at least 10 seconds in order to demonstrate improved trunk strength for return to work STG Duration 5 weeks [employer] Instrument [employer]ician Goal (LTG) Pt will be able to maintain trunk flexion MMT position (5/ 5 arms behind head) with B scapula cleared from floor for at least 15 seconds in order to demonstrate improved trunk strength for return to work LTG Duration 10 weeks Three Impairment activity Impairment Pt unable to exercise/ participate in activity due to pain and fear of injury Short Term Goal (STG) Pt will initiate HEP and report compliance with HEP at least 3x/wk in order to begin compliance with independent exercise post discharge STG Duration 5 weeks [employer] Instrument [employer]ician Goal (LTG) Pt will return to independent exercise program at least 3x/ wk in order to maintain strength gains and activity level for return to work LTG Duration 10 weeks Two Impairment strength Impairment unable to perform plank ( standard or modified) Short Term Goal (STG) Pt will be able to perform a plank for at least 20 seconds in order to demonstrate improved core and lumbar extensor strength for return to work STG Duration 5 weeks [employer] Instrument Technician Goal (LTG) Pt will be able to perform a plank for at least 45 seconds in order to demonstrate improved core and lumbar extensor strength for return to work LTG Duration 10 weeks One Impairment function Impairment Oswestry 8/50 Mcfp Goal (LTG) Pt will decrease Oswestry score to <8/50 in order to demonstrate improved activity tolerance, QOL, and pain management LTG Duration 10 weeks Assessment Summary Assessment Pt good tolerance to supine stretching, painfree and manual STMs, but did report discomfort over R SI during R hip AROM IR (so stopped). He reported quick pain and achy response in R LB and sometimes glut when slouched sitting normal posture (his norm), improved painfree with cuing wt shift and postural corrections then carryover sit to stands. Improved understanding postural algnment body mechanics with picking up daughter. Pt would benefit from continued postural and trunk alignment and carryover body mechanics education for spinal support, will progress strengthening and endurance mobility as mechanics improve, almost painfree leaving. Physical Therapy Plan Frequency and Duration Frequency of Treatment 1x/Week Duration of treatment (weeks) 10 Plan of Care Start Date 05/04/23 Plan of Care End Date 07/13/23 Therapeutic Interventions Therapeutic Interventions Aquatic Therapy,Balance Training,Coordination Training ,Gait Training,Home Exercise Program,Joint Mobilizations, Manual Therapy,Neuromuscular Re-education,Orthotic/ Prosthetic Management,Patient/ Caregiver Education,Self-Care/ Home Management,Sensory Integration,Soft Tissue Mobilization,Taping, Therapeutic Activities, Therapeutic Exercises Modalities Cold Pack/Ice Massage,Electric Stimulation,Hot Packs, Traction- Mechanical, Ultrasound,Vasopneumatic Devices Next Visit Focus/Plan Next Note Type Treatment Note Next Visit Plan CHeck pelvic alignment. NExt tx:quadruped/half kneel support 9 mo old daughter activities. Review HEP: stretching, TA STS, mechanics with daughter. POC: Flexion-biased core strengthening and stretches, gentle lumbar extensor strengthening as tolerated, side steps, squats Initiate walking program/ exercise program and log Manual: lumbar mobilizations grade II, disc distraction/ traction
--- NOTE | 2023-05-18 15:45 | PT.OTN ---
Current Diagnoses Low back pain, unspecified (05/18/23) Dorsalgia, unspecified (05/18/23) Unspecified abdominal pain (05/18/23) Physical Therapy Treatment Note PT-OP-A Visit Information Start: 05/04/23 12:18 Freq: Status: Active Protocol: Document 05/18/23 14:33 NM (Rec: 05/18/23 15:44 NM [id number]) Out-Patient Physical Therapy Visit Information Visit Information Visit Type Treatment Note Visit Note 24 visits Visit Start Time 14:33 Visit Stop Time 15:15 Visit Number 3 Evaluation Information Evaluation Date 05/04/23 PT-OP-B Current Condition Start: 05/04/23 12:18 Freq: Status: Active Protocol: Document 05/04/23 12:18 NM (Rec: 05/04/23 14:19 NM [id number]) Current Condition History of Current Condition Onset Date October 2022 Current Complaints weakness, pain History of Current Condition Pt presents with low back pain after an injury in October while working in [place] when pulling a net back out of the water without help. 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 He worked through the pain and has 2 ED visits. He reinjured it a second time while stacking wood in the fall of 2022. 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 He does not do anything anymore recreationally (e.g. basketball). Surgeon is recommending injections. He reports that his back wears outs, someone is pressing on my back/nerves. He reports that his back was often sore prior to the initial injury. He is having most difficulty with lifting, twisting, standing (needs to lean on something); able to bend forward but causes pain the next day. He is currently taking care of his . No numbness or tingling, but reports pain in his buttocks sore. Pt reports changes in balance, bumping into objects, less movement, poor endurance . No saddle anesthesia, bowel or bladder. No falls PT-OP-C Subjective Start: 05/04/23 12:18 Freq: Status: Active Protocol: Document 05/18/23 14:33 NM (Rec: 05/18/23 15:44 NM [id number]) OP-PT Subjective Patient Comments Patient Comments Pt stopped taking lyrica. He reports that his back feels better this week with the stretches, he is noticing it as much now when he's moving. He only feels it when he extends to burp his baby. PT-OP-D Balance Start: 05/04/23 12:18 Freq: Status: Active Protocol: Document 05/04/23 12:18 NM (Rec: 05/04/23 16:14 NM [id number]) Balance Tests Romberg Romberg 30 sec; no sway Single Limb Standing Single Limb- Right 30 sec Single Limb- Left 25 sec Tandem Tandem Standing 10 sec BLE; increased trunk sway PT-OP-E Functional Tests Start: 05/04/23 12:18 Freq: Status: Active Protocol: Document 05/04/23 12:18 NM (Rec: 05/04/23 16:14 NM [id number]) Functional Tests 30 Second Sit to Stand Test Score 20 Comments no pain reported; reports fatiguing toward end PT-OP-F Manual Assessment Start: 05/04/23 12:18 Freq: Status: Active Protocol: Document 05/04/23 12:18 NM (Rec: 05/04/23 16:14 NM [id number]) Manual Assessments Soft Tissue Assessment Soft Tissue Mobility Assessment Tenderness and increased tone of R glutes, especially external rotators (piriformis) Joint Mobility Assessment Joint Mobility Assessment Tenderness with posterior- anterior spinous process springing along lower lumbar spine (L4-L5) and S1, near R PSIS. Piriformis and lumbar spine concordant pain reproduced with prone hip IR. Full hip AROM and PROM in supine PT-OP-G Mobility & Gait Start: 05/04/23 12:18 Freq: Status: Active Protocol: Document 05/04/23 12:18 NM (Rec: 05/04/23 16:14 NM [id number]) OP Gait Assessment Gait Gait Assistance Required: Independent Distance (Feet) 150 Assistive Devices Assistive Device None Gait Deviations General Gait Pattern Lateral Trunk Lean Factors Limiting Gait Function Factors Limiting Gait Function Decreased Activity Tolerance, Pain Comments Gait Comments Demos slight R lateral trunk shift with gait PT-OP-H Neuro Start: 05/04/23 12:18 Freq: Status: Active Protocol: Document 05/04/23 12:18 NM (Rec: 05/04/23 14:19 NM [id number]) Sensation Evaluation Gross Sensation Gross Sensation WNL Comments Summary Comments BLE intact to light touch sensation equally PT-OP-J Posture/Palpation/Skin Start: 05/04/23 12:18 Freq: Status: Active Protocol: Document 05/04/23 12:18 NM (Rec: 05/04/23 16:14 NM [id number]) Posture Evaluation Position Standing Evaluation View post, ant, lateral Head/C-Spine Posture Forward Head T-Spine Posture Neutral Thorax Posture Neutral L-Spine Posture Increased Lordosis Pelvis Posture Anteriorly Tilted Weight Distribution Balanced Hip Posture (L) Externally Rotated,(R) Externally Rotated Knee Posture (L) Neutral,(R) Neutral Ankle/Foot Posture (L) Pronated,(R) Pronated Palpation Assessment Location Lumbar spine Palpation Location paraspinals, spinous/ transverse processes, glutes, QL Palpation Findings Soft Tissue Tightness,Muscle Guarding,Tenderness Palpation Details Tenderness along R glutes with palpation, worse with passive prone hip IR. Minimal restrictions and tenderness at R QL. Minimal tenderness (pt states not pain) along L4-L5 spinous processes. Atrophy of B paraspinals PT-OP-K Range of Motion Start: 05/04/23 12:18 Freq: Status: Active Protocol: Document 05/04/23 12:18 NM (Rec: 05/04/23 16:14 NM [id number]) Lumbar Spine Range of Motion Lumbar Spine Active Percentage Testing Position Standing Flexion 100 Extension 100 Rotation Left 8 Rotation Right 8 Lateral Flexion Left 100 Lateral Flexion Right 100 ROM Limitations Soft Tissue Tightness,Muscle Weakness Comments No pain reported into extension but pt states feels weak in that direction. Pain reported with return to neutral spine after R lateral flexion. Lateral flex to B knee joint line (100%) PT-OP-L Special Tests Start: 05/04/23 12:18 Freq: Status: Active Protocol: Document 05/04/23 12:18 NM (Rec: 05/04/23 16:14 NM [id number]) Special Tests Lumbar Spine Special Tests Distraction Test Results + Comments symptom relief Kunz/Quadrant Test Results + Comments reports minimal pain R trunk; local Straight Leg Raise Test Results + Comments RLE Slump Test Results - PT-OP-M Strength Start: 05/04/23 12:18 Freq: Status: Active Protocol: Document 05/04/23 12:18 NM (Rec: 05/04/23 16:14 NM [id number]) Trunk Strength Trunk Manual Muscle Testing Testing Position supine, sitting, standing Flexion 4 Good Extension 4 Good Rotation Left 4+ Good+ Rotation Right 4+ Good+ Lateral Flexion Left 4+ Good+ Lateral Flexion Right 4+ Good+ Comments No pain with resisted movements Hip Strength Hip Manual Muscle Testing Right Flexion (L2) 4+ Good+ Extension (S1) 4+ Good+ Abduction 4+ Good+ Adduction 4+ Good+ External Rotation 4+ Good+ Internal Rotation 4+ Good+ Left Flexion (L2) 4+ Good+ Extension (S1) 4+ Good+ Abduction 4+ Good+ Adduction 4+ Good+ External Rotation 4+ Good+ Internal Rotation 4+ Good+ Knee Strength Knee Manual Muscle Testing Right Flexion (S2) 4+ Good+ Extension (L3) 4+ Good+ Left Flexion (S2) 4+ Good+ Extension (L3) 4+ Good+ Ankle/Foot Strength Ankle and Foot Manual Muscle Testing Left Dorsiflexion (L4) 4+ Good+ Plantarflexion (S1) 4+ Good+ Right Dorsiflexion (L4) 4+ Good+ Plantarflexion (S1) 4+ Good+ PT-OP-Q Treatments Start: 05/04/23 12:18 Freq: Status: Active Protocol: Document 05/18/23 14:33 NM (Rec: 05/18/23 15:44 NM [id number]) Therapeutic Exercises Supine Exercises bridge Supine Exercise Name segmentally; with neutral Side bilateral Resistance AROM Reps/Minutes 2x8 Comments cue for neutral spine; reports wow this is working Pelvic tilt & TA Supine Exercise Name reviewed HEP Reps/Minutes 1x10 Comments cued ed: tailbone tuck ceiling/floor, slow pacing painfree range FIg 4 Supine Exercise Name reviewed as HEP- with added hip ER and IR Side bilateral Reps/Minutes 2x30 ER and IR ea Comments reports good relief with stretching Sidelying Exercises hip abduction Side bilateral Resistance AROM with hip abd/ext and hip IR Reps/Minutes 2x5 Comments that's tough; cued for hip IR and slower movements/ control Sitting Exercises seated on Tball Sitting Exercise Name 1. pelvic tilts F/B/L 2. alt june (unweight foot from floor), Resistance 75cm tball Equipment Used 3. lat pull down with lvl 3 big sandy band Reps/Minutes 1. 5 reps x3 2. approx 3 reps each side then 3 SH x2 each side Comments cued tall NS/TA posturing- Pt improved TA/stab with reps- painfree TA STS Sitting Exercise Name pain free today Resistance 10# db Equipment Used demos good ant weight and improved lowering control with reps Reps/Minutes 2x8 Comments Max VCs scap squeeze, CS retract neutral, hip hinge /c TA asc, slow descend Piriformis mobilization Sitting Exercise Name standing against wall and seated on small lacrosse ball Side bilateral Equipment Used to pt tolerance, rolling on small ball for muscle relaxation Reps/Minutes 2 minutes ea Comments for paraspinals, piriformis; reports good muscle relaxation Standing Exercises Squat Standing Exercise Name with hip hinge Side bilateral Resistance AROM Equipment Used to mat Reps/Minutes 1x10 Comments cued for coord., but pt unable to perform w/o segmental movement Lunge Standing Exercise Name 1. 1/2 kneel to floor ~p/u daughter, 2. lunge Side bilateral Resistance 1. 10# db, 2. AROM Reps/Minutes 1. 1x10, 2. 2x10 ea Comments wow this is the best way, pain free; good hip hinge, knee flex Hip hinge Side bilateral Resistance AROM Reps/Minutes 2x10 Comments cued for form, self tactile cue on ant hips, push hips back straight Self-Care/Home Management Treatment Education Patient Education Body Mechanics,Home Exercise Program,Joint Protection,Pain Management,Posture Other Education 8 min: Education regarding body mechanics related to transferring up/down from floor, picking up daughter, hip hinge, squatting, half kneel transfer. PT and pt troubleshooted pt supporting back while burping baby to decrease his soreness. Also educated pt on importance of remaining active as he feels better without overdoing, recommending initiating a gentle daily walking program, gradually increasing the distance, with or without baby . HEP: bridge, s/l hip abd, lunge, hip hinge, walking program. PT also recommended pt follow up with PCP about stopping lyrica due to side effects despite pt feeling better PT-OP-T Assessment and Plan Start: 05/04/23 12:18 Freq: Status: Active Protocol: Document 05/18/23 14:33 NM (Rec: 05/18/23 15:44 NM [id number]) Physical Therapy Assessment Goals Four Impairment strength Impairment trunk flexion MMT 4/5 Short Term Goal (STG) Pt will be able to maintain trunk flexion MMT position (5/ 5 arms behind head) with B scapula cleared from floor for at least 10 seconds in order to demonstrate improved trunk strength for return to work STG Duration 5 weeks [employer] Network [employer] Goal (LTG) Pt will be able to maintain trunk flexion MMT position (5/ 5 arms behind head) with B scapula cleared from floor for at least 15 seconds in order to demonstrate improved trunk strength for return to work LTG Duration 10 weeks Three Impairment activity Impairment Pt unable to exercise/ participate in activity due to pain and fear of injury Short Term Goal (STG) Pt will initiate HEP and report compliance with HEP at least 3x/wk in order to begin compliance with independent exercise post discharge STG Duration 5 weeks [employer] Network [employer] Goal (LTG) Pt will return to independent exercise program at least 3x/ wk in order to maintain strength gains and activity level for return to work LTG Duration 10 weeks Two Impairment strength Impairment unable to perform plank ( standard or modified) Short Term Goal (STG) Pt will be able to perform a plank for at least 20 seconds in order to demonstrate improved core and lumbar extensor strength for return to work STG Duration 5 weeks Jail Goal (LTG) Pt will be able to perform a plank for at least 45 seconds in order to demonstrate improved core and lumbar extensor strength for return to work LTG Duration 10 weeks One Impairment function Impairment Oswestry 8/50 Jail Goal (LTG) Pt will decrease Oswestry score to <8/50 in order to demonstrate improved activity tolerance, QOL, and pain management LTG Duration 10 weeks Assessment Summary Assessment Pt tolerated session well and demonstrates good improvement in both activity tolerance and pain management since last session. Initiated BLE hip/ glute and gentle core strengthening for improved trunk and hip stability. Pt fatigues easily, olimpia during sidelying hip abduction, requiring cues for correct execution and control. Initiated hip hinge, 1/2 kneel body mechanics for picking up daughter and to protect low back. Pt tolerates well with prn cues for correct form and self tactile cues for hip hinge. Progressed to lunge and squats with 10# to simulate baby. Initiated daily ambulation program for pt to encourage activity outside of PT. PT advised pt to follow up with PCP about recent medication changes as pt has stopped taking lyrica recently without PCP approval. Pt would benefit from functional and progressive BLE and trunk/ core strengthening in order to improve activity tolerance, decrease pain symptoms, and return to PLOF. Physical Therapy Plan Frequency and Duration Frequency of Treatment 1x/Week Duration of treatment (weeks) 10 Plan of Care Start Date 05/04/23 Plan of Care End Date 07/13/23 Therapeutic Interventions Therapeutic Interventions Aquatic Therapy,Balance Training,Coordination Training ,Gait Training,Home Exercise Program,Joint Mobilizations, Manual Therapy,Neuromuscular Re-education,Orthotic/ Prosthetic Management,Patient/ Caregiver Education,Self-Care/ Home Management,Sensory Integration,Soft Tissue Mobilization,Taping, Therapeutic Activities, Therapeutic Exercises Modalities Cold Pack/Ice Massage,Electric Stimulation,Hot Packs, Traction- Mechanical, Ultrasound,Vasopneumatic Devices Next Visit Focus/Plan Next Note Type Treatment Note Next Visit Plan Check pelvic alignment prn. NExt tx:quadruped/half kneel support 9 mo old daughter activities. Progress lunge, hip abd, squat (coord better), hip hinge, lat pull down, TA activation/core POC: Flexion-biased core strengthening and stretches, gentle lumbar extensor strengthening as tolerated, side steps, squats Initiate walking program/ exercise program and log Manual: lumbar mobilizations grade II, disc distraction/ traction
--- NOTE | 2023-06-01 11:50 | PT.OTN ---
Current Diagnoses Low back pain, unspecified (06/01/23) Dorsalgia, unspecified (06/01/23) Unspecified abdominal pain (06/01/23) Physical Therapy Treatment Note PT-OP-A Visit Information Start: 05/04/23 12:18 Freq: Status: Active Protocol: Document 06/01/23 09:50 NM (Rec: 06/01/23 10:33 NM [id number]) Out-Patient Physical Therapy Visit Information Visit Information Visit Type Treatment Note Visit Note 24 visits Visit Start Time 09:47 Visit Stop Time 10:30 Visit Number 4 Evaluation Information Evaluation Date 05/04/23 PT-OP-B Current Condition Start: 05/04/23 12:18 Freq: Status: Active Protocol: Document 05/04/23 12:18 NM (Rec: 05/04/23 14:19 NM [id number]) Current Condition History of Current Condition Onset Date October 2022 Current Complaints weakness, pain History of Current Condition Pt presents with low back pain after an injury in October while working in [place] when pulling a net back out of the water without help. 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 He worked through the pain and has 2 ED visits. He reinjured it a second time while stacking wood in the fall of 2022. 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 He does not do anything anymore recreationally (e.g. basketball). Surgeon is recommending injections. He reports that his back wears outs, someone is pressing on my back/nerves. He reports that his back was often sore prior to the initial injury. He is having most difficulty with lifting, twisting, standing (needs to lean on something); able to bend forward but causes pain the next day. He is currently taking care of his . No numbness or tingling, but reports pain in his buttocks sore. Pt reports changes in balance, bumping into objects, less movement, poor endurance . No saddle anesthesia, bowel or bladder. No falls PT-OP-C Subjective Start: 05/04/23 12:18 Freq: Status: Active Protocol: Document 06/01/23 09:50 NM (Rec: 06/01/23 10:33 NM [id number]) OP-PT Subjective Patient Comments Patient Comments Pt reports no changes since last session regarding pain. Reports that stretching feels good but his low back continues to be sore. He has been partially compliant with HEP (bridges, hip hinge). He called MD but did not follow their instructions regarding stopping lyrica; continues to report that he has improved recently but had bad side effects from stopping over the last week. PT-OP-D Balance Start: 05/04/23 12:18 Freq: Status: Active Protocol: Document 05/04/23 12:18 NM (Rec: 05/04/23 16:14 NM [id number]) Balance Tests Romberg Romberg 30 sec; no sway Single Limb Standing Single Limb- Right 30 sec Single Limb- Left 25 sec Tandem Tandem Standing 10 sec BLE; increased trunk sway PT-OP-E Functional Tests Start: 05/04/23 12:18 Freq: Status: Active Protocol: Document 05/04/23 12:18 NM (Rec: 05/04/23 16:14 NM [id number]) Functional Tests 30 Second Sit to Stand Test Score 20 Comments no pain reported; reports fatiguing toward end PT-OP-F Manual Assessment Start: 05/04/23 12:18 Freq: Status: Active Protocol: Document 05/04/23 12:18 NM (Rec: 05/04/23 16:14 NM [id number]) Manual Assessments Soft Tissue Assessment Soft Tissue Mobility Assessment Tenderness and increased tone of R glutes, especially external rotators (piriformis) Joint Mobility Assessment Joint Mobility Assessment Tenderness with posterior- anterior spinous process springing along lower lumbar spine (L4-L5) and S1, near R PSIS. Piriformis and lumbar spine concordant pain reproduced with prone hip IR. Full hip AROM and PROM in supine PT-OP-G Mobility & Gait Start: 05/04/23 12:18 Freq: Status: Active Protocol: Document 05/04/23 12:18 NM (Rec: 05/04/23 16:14 NM [id number]) OP Gait Assessment Gait Gait Assistance Required: Independent Distance (Feet) 150 Assistive Devices Assistive Device None Gait Deviations General Gait Pattern Lateral Trunk Lean Factors Limiting Gait Function Factors Limiting Gait Function Decreased Activity Tolerance, Pain Comments Gait Comments Demos slight R lateral trunk shift with gait PT-OP-H Neuro Start: 05/04/23 12:18 Freq: Status: Active Protocol: Document 05/04/23 12:18 NM (Rec: 05/04/23 14:19 NM [id number]) Sensation Evaluation Gross Sensation Gross Sensation WNL Comments Summary Comments BLE intact to light touch sensation equally PT-OP-J Posture/Palpation/Skin Start: 05/04/23 12:18 Freq: Status: Active Protocol: Document 05/04/23 12:18 NM (Rec: 05/04/23 16:14 NM [id number]) Posture Evaluation Position Standing Evaluation View post, ant, lateral Head/C-Spine Posture Forward Head T-Spine Posture Neutral Thorax Posture Neutral L-Spine Posture Increased Lordosis Pelvis Posture Anteriorly Tilted Weight Distribution Balanced Hip Posture (L) Externally Rotated,(R) Externally Rotated Knee Posture (L) Neutral,(R) Neutral Ankle/Foot Posture (L) Pronated,(R) Pronated Palpation Assessment Location Lumbar spine Palpation Location paraspinals, spinous/ transverse processes, glutes, QL Palpation Findings Soft Tissue Tightness,Muscle Guarding,Tenderness Palpation Details Tenderness along R glutes with palpation, worse with passive prone hip IR. Minimal restrictions and tenderness at R QL. Minimal tenderness (pt states not pain) along L4-L5 spinous processes. Atrophy of B paraspinals PT-OP-K Range of Motion Start: 05/04/23 12:18 Freq: Status: Active Protocol: Document 05/04/23 12:18 NM (Rec: 05/04/23 16:14 NM [id number]) Lumbar Spine Range of Motion Lumbar Spine Active Percentage Testing Position Standing Flexion 100 Extension 100 Rotation Left 8 Rotation Right 8 Lateral Flexion Left 100 Lateral Flexion Right 100 ROM Limitations Soft Tissue Tightness,Muscle Weakness Comments No pain reported into extension but pt states feels weak in that direction. Pain reported with return to neutral spine after R lateral flexion. Lateral flex to B knee joint line (100%) PT-OP-L Special Tests Start: 05/04/23 12:18 Freq: Status: Active Protocol: Document 05/04/23 12:18 NM (Rec: 05/04/23 16:14 NM [id number]) Special Tests Lumbar Spine Special Tests Distraction Test Results + Comments symptom relief Kunz/Quadrant Test Results + Comments reports minimal pain R trunk; local Straight Leg Raise Test Results + Comments RLE Slump Test Results - PT-OP-M Strength Start: 05/04/23 12:18 Freq: Status: Active Protocol: Document 05/04/23 12:18 NM (Rec: 05/04/23 16:14 NM [id number]) Trunk Strength Trunk Manual Muscle Testing Testing Position supine, sitting, standing Flexion 4 Good Extension 4 Good Rotation Left 4+ Good+ Rotation Right 4+ Good+ Lateral Flexion Left 4+ Good+ Lateral Flexion Right 4+ Good+ Comments No pain with resisted movements Hip Strength Hip Manual Muscle Testing Right Flexion (L2) 4+ Good+ Extension (S1) 4+ Good+ Abduction 4+ Good+ Adduction 4+ Good+ External Rotation 4+ Good+ Internal Rotation 4+ Good+ Left Flexion (L2) 4+ Good+ Extension (S1) 4+ Good+ Abduction 4+ Good+ Adduction 4+ Good+ External Rotation 4+ Good+ Internal Rotation 4+ Good+ Knee Strength Knee Manual Muscle Testing Right Flexion (S2) 4+ Good+ Extension (L3) 4+ Good+ Left Flexion (S2) 4+ Good+ Extension (L3) 4+ Good+ Ankle/Foot Strength Ankle and Foot Manual Muscle Testing Left Dorsiflexion (L4) 4+ Good+ Plantarflexion (S1) 4+ Good+ Right Dorsiflexion (L4) 4+ Good+ Plantarflexion (S1) 4+ Good+ PT-OP-Q Treatments Start: 05/04/23 12:18 Freq: Status: Active Protocol: Document 06/01/23 09:50 NM (Rec: 06/01/23 10:33 NM [id number]) Therapeutic Exercises Supine Exercises bridge Supine Exercise Name segmentally; with neutral Side bilateral Resistance AROM Reps/Minutes 2x10 Comments cue for neutral spine, ppt diphramatic breath Equipment Used hand on belly Reps/Minutes 5 reps Comments ed for neutral pelvis, good belly raise/lower Prone Exercises plank Prone Exercise Name full plank Side bilateral Equipment Used plinth Reps/Minutes 20 sec for goal Comments reports no pain but demos increased core instability with time Sidelying Exercises clams and reverse clams Sidelying Exercise Name following STM; issued as HEP Side bilateral Resistance lvl 2 teal tb Reps/Minutes 1x15 with 3 hold ea Comments cued for no hip rot bwd hip abduction Sidelying Exercise Name following STM; past HEP review Side bilateral Resistance AROM with hip abd/ext and hip IR Reps/Minutes 1x10 with 5 hold for challenge Comments cued hip IR, form, slower control Standing Exercises Squat Standing Exercise Name with hip hinge Side bilateral Resistance AROM Equipment Used to mat Reps/Minutes 2x5 Comments cued for coord., but pt unable to perform w/o segmental movement Hip hinge Standing Exercise Name deadlift Side bilateral Resistance AROM Equipment Used dowel, wall for tactile cues, PT hand for scap retract Reps/Minutes 2x10 Comments cued for scap retraction, neutral spine to limit excess lordosis Manual Therapy Treatment Soft Tissue Mobilization R>L back, hip Body Location B ES, B glut med/max, B piriformis Mobilization Type Oscillations,Rolling,Strumming ,Sustained Pressure,Other Intensity/Depth Deep Body Position Prone Comments Rolling and oscillations of lumbar paraspinals for muscle relaxation and pain reduction, R>L. Reports improvement post STM. Educated on use of STM for home, follow with stretching then strengthening to improve muscle length Performed deep STM, then mob with movement of B piriformis using hip ER/IR followed by exercise. Pt reports relief after STM, R>L glutes and piriformis Joint Mobilizations lumbar spine Joint L1-L5, SIJ (R>L) Grade III Body Position Prone Reps/Duration 2x30 ea Comments Grade II>III P-A mobs on spinous process of lumbar spine. Demos decreased spine mobility as progress lower lumbar. Pt with most pain/ pinch at R SIJ but bilaterally. Reports improvement with stabilization , P-A mob of R SIJ. Educated on trialing SIJ belt for stability, follow with exercise to stabilize Self-Care/Home Management Treatment Education Patient Education Body Mechanics,Home Exercise Program,Joint Protection,Pain Management Other Education 8 minutes: Educated on soft tissue mobilization, modalities for pain relief. Extensive education on muscle lengthening and retraining with stretching, mobilization and exercise. Educated on importance of HEP provided to pt for carryover between sessions. Pt verbalizes understanding. HEP: clams and reverse clams, reviewed bridges and sidelying hip abd, hip hinge PT-OP-T Assessment and Plan Start: 05/04/23 12:18 Freq: Status: Active Protocol: Document 06/01/23 09:50 NM (Rec: 06/01/23 10:33 NM [id number]) Physical Therapy Assessment Goals Four Impairment strength Impairment trunk flexion MMT 4/5 Short Term Goal (STG) Pt will be able to maintain trunk flexion MMT position (5/ 5 arms behind head) with B scapula cleared from floor for at least 10 seconds in order to demonstrate improved trunk strength for return to work 06/01/23: arms across chest 4/5 10 sec STG Duration 5 weeks Assisted Goal (LTG) Pt will be able to maintain trunk flexion MMT position (5/ 5 arms behind head) with B scapula cleared from floor for at least 15 seconds in order to demonstrate improved trunk strength for return to work LTG Duration 10 weeks Three Impairment activity Impairment Pt unable to exercise/ participate in activity due to pain and fear of injury Short Term Goal (STG) Pt will initiate HEP and report compliance with HEP at least 3x/wk in order to begin compliance with independent exercise post discharge 06/01/23: reports daily for most of HEP STG Duration 5 weeks MET It Support Engineer Goal (LTG) Pt will return to independent exercise program at least 3x/ wk in order to maintain strength gains and activity level for return to work LTG Duration 10 weeks Two Impairment strength Impairment unable to perform plank ( standard or modified) Short Term Goal (STG) Pt will be able to perform a plank for at least 20 seconds in order to demonstrate improved core and lumbar extensor strength for return to work 06/01/23: 20 sec but starts to demo instab STG Duration 5 weeks PROGRESSING It Support Engineer Goal (LTG) Pt will be able to perform a plank for at least 45 seconds in order to demonstrate improved core and lumbar extensor strength for return to work LTG Duration 10 weeks One Impairment function Impairment Oswestry 8/50 It Support Engineer Goal (LTG) Pt will decrease Oswestry score to <8/50 in order to demonstrate improved activity tolerance, QOL, and pain management LTG Duration 10 weeks Progress Towards Goals Progress Towards Goals Progressing Toward Goals,Slow Progress due to Attendance Issues,Slow Progress due to Noncompliance Progress Comments Slowly progressing toward goals, partial compliance with HEP Assessment Summary Assessment Pt tolerated session well. Demos soft tissue restrictions of B paraspinals (R>L) and piriformis/glutes, which is improved with soft tissue mobilization followed by muscle re-education with exercise. PT educated pt on importance of following stretching or mobilization with strengthening for consistent changes in muscle length. Strengthening focus on glutes, hip abductors, and hip rotators. Reviewed hip hinge, initiated deadlift AROM . Pt challenged on coordination initially but improved with tactile and verbal cues. Pt performs best with using wall for external target. Pt continues to demonstrate limitations in core and lumbar stabilization, would benefit from further strengthening. Trialed plank, but demos instability at 20 seconds; however, reports no pain with activity. His activity tolerance has improved per pt reports, but continues to be limited compared to peers. PT strongly encouraged pt to listen to doctors regarding lyrica medication, follow up with PCP regarding stopping medication due to side effects he is experiencing; pt verbalizes understanding. Pt would benefit from progressive BLE strengthening, core stabilization, and body mechanics training in order to decrease pain symptoms and improve activity tolerance. Physical Therapy Plan Frequency and Duration Frequency of Treatment 1x/Week Duration of treatment (weeks) 10 Plan of Care Start Date 05/04/23 Plan of Care End Date 07/13/23 Therapeutic Interventions Therapeutic Interventions Aquatic Therapy,Balance Training,Coordination Training ,Gait Training,Home Exercise Program,Joint Mobilizations, Manual Therapy,Neuromuscular Re-education,Orthotic/ Prosthetic Management,Patient/ Caregiver Education,Self-Care/ Home Management,Sensory Integration,Soft Tissue Mobilization,Taping, Therapeutic Activities, Therapeutic Exercises Modalities Cold Pack/Ice Massage,Electric Stimulation,Hot Packs, Traction- Mechanical, Ultrasound,Vasopneumatic Devices Next Visit Focus/Plan Next Note Type Treatment Note Next Visit Plan Next session: trial SIJ related tx (bridge with ADD, cont IR/ER, stab belt). Core and lumbar strenthening and stabilization (flexion gurmeet> isotonics, pallof, etc). Progress lunge, hip abd, squat (coord better), hip hinge, lat pull down, TA activation/ core POC: Flexion-biased core strengthening and stretches, gentle lumbar extensor strengthening as tolerated, side steps, squats Initiate walking program/ exercise program and log Manual: lumbar mobilizations grade II, disc distraction/ traction
--- NOTE | 2023-06-08 14:32 | PT.OTN ---
Current Diagnoses Low back pain, unspecified (06/08/23) Dorsalgia, unspecified (06/08/23) Unspecified abdominal pain (06/08/23) Physical Therapy Treatment Note PT-OP-A Visit Information Start: 05/04/23 12:18 Freq: Status: Active Protocol: Document 06/08/23 13:55 SP (Rec: 06/08/23 14:48 SP [id number]) Out-Patient Physical Therapy Visit Information Visit Information Visit Type Treatment Note Visit Note 24 visits Visit Start Time 13:55 Visit Stop Time 14:32 Visit Number 38 Number of SMASHER HAND Visits 1 Evaluation Information Evaluation Date 05/04/23 PT-OP-B Current Condition Start: 05/04/23 12:18 Freq: Status: Active Protocol: Document 05/04/23 12:18 NM (Rec: 05/04/23 14:19 NM [id number]) Current Condition History of Current Condition Onset Date October 2022 Current Complaints weakness, pain History of Current Condition Pt presents with low back pain after an injury in October while working in [place] when pulling a net back out of the water without help. 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 He worked through the pain and has 2 ED visits. He reinjured it a second time while stacking wood in the fall of 2022. 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 He does not do anything anymore recreationally (e.g. basketball). Surgeon is recommending injections. He reports that his back wears outs, someone is pressing on my back/nerves. He reports that his back was often sore prior to the initial injury. He is having most difficulty with lifting, twisting, standing (needs to lean on something); able to bend forward but causes pain the next day. He is currently taking care of his . No numbness or tingling, but reports pain in his buttocks sore. Pt reports changes in balance, bumping into objects, less movement, poor endurance . No saddle anesthesia, bowel or bladder. No falls PT-OP-C Subjective Start: 05/04/23 12:18 Freq: Status: Active Protocol: Document 06/08/23 13:55 SP (Rec: 06/08/23 14:48 SP [id number]) OP-PT Subjective Patient Comments Patient Comments Pt reports doing well after last tx. Has been busy with daughter so not been able do HEP as suggested. Has walked approx 6 miles incline/ declined with no pain. Tried jog up hill to brother's house and no pain. PT-OP-D Balance Start: 05/04/23 12:18 Freq: Status: Active Protocol: Document 05/04/23 12:18 NM (Rec: 05/04/23 16:14 NM [id number]) Balance Tests Romberg Romberg 30 sec; no sway Single Limb Standing Single Limb- Right 30 sec Single Limb- Left 25 sec Tandem Tandem Standing 10 sec BLE; increased trunk sway PT-OP-E Functional Tests Start: 05/04/23 12:18 Freq: Status: Active Protocol: Document 05/04/23 12:18 NM (Rec: 05/04/23 16:14 NM [id number]) Functional Tests 30 Second Sit to Stand Test Score 20 Comments no pain reported; reports fatiguing toward end PT-OP-F Manual Assessment Start: 05/04/23 12:18 Freq: Status: Active Protocol: Document 05/04/23 12:18 NM (Rec: 05/04/23 16:14 NM [id number]) Manual Assessments Soft Tissue Assessment Soft Tissue Mobility Assessment Tenderness and increased tone of R glutes, especially external rotators (piriformis) Joint Mobility Assessment Joint Mobility Assessment Tenderness with posterior- anterior spinous process springing along lower lumbar spine (L4-L5) and S1, near R PSIS. Piriformis and lumbar spine concordant pain reproduced with prone hip IR. Full hip AROM and PROM in supine PT-OP-G Mobility & Gait Start: 05/04/23 12:18 Freq: Status: Active Protocol: Document 05/04/23 12:18 NM (Rec: 05/04/23 16:14 NM [id number]) OP Gait Assessment Gait Gait Assistance Required: Independent Distance (Feet) 150 Assistive Devices Assistive Device None Gait Deviations General Gait Pattern Lateral Trunk Lean Factors Limiting Gait Function Factors Limiting Gait Function Decreased Activity Tolerance, Pain Comments Gait Comments Demos slight R lateral trunk shift with gait PT-OP-H Neuro Start: 05/04/23 12:18 Freq: Status: Active Protocol: Document 05/04/23 12:18 NM (Rec: 05/04/23 14:19 NM [id number]) Sensation Evaluation Gross Sensation Gross Sensation WNL Comments Summary Comments BLE intact to light touch sensation equally PT-OP-J Posture/Palpation/Skin Start: 05/04/23 12:18 Freq: Status: Active Protocol: Document 05/04/23 12:18 NM (Rec: 05/04/23 16:14 NM [id number]) Posture Evaluation Position Standing Evaluation View post, ant, lateral Head/C-Spine Posture Forward Head T-Spine Posture Neutral Thorax Posture Neutral L-Spine Posture Increased Lordosis Pelvis Posture Anteriorly Tilted Weight Distribution Balanced Hip Posture (L) Externally Rotated,(R) Externally Rotated Knee Posture (L) Neutral,(R) Neutral Ankle/Foot Posture (L) Pronated,(R) Pronated Palpation Assessment Location Lumbar spine Palpation Location paraspinals, spinous/ transverse processes, glutes, QL Palpation Findings Soft Tissue Tightness,Muscle Guarding,Tenderness Palpation Details Tenderness along R glutes with palpation, worse with passive prone hip IR. Minimal restrictions and tenderness at R QL. Minimal tenderness (pt states not pain) along L4-L5 spinous processes. Atrophy of B paraspinals PT-OP-K Range of Motion Start: 05/04/23 12:18 Freq: Status: Active Protocol: Document 05/04/23 12:18 NM (Rec: 05/04/23 16:14 NM [id number]) Lumbar Spine Range of Motion Lumbar Spine Active Percentage Testing Position Standing Flexion 100 Extension 100 Rotation Left 8 Rotation Right 8 Lateral Flexion Left 100 Lateral Flexion Right 100 ROM Limitations Soft Tissue Tightness,Muscle Weakness Comments No pain reported into extension but pt states feels weak in that direction. Pain reported with return to neutral spine after R lateral flexion. Lateral flex to B knee joint line (100%) PT-OP-L Special Tests Start: 05/04/23 12:18 Freq: Status: Active Protocol: Document 05/04/23 12:18 NM (Rec: 05/04/23 16:14 NM [id number]) Special Tests Lumbar Spine Special Tests Distraction Test Results + Comments symptom relief Kunz/Quadrant Test Results + Comments reports minimal pain R trunk; local Straight Leg Raise Test Results + Comments RLE Slump Test Results - PT-OP-M Strength Start: 05/04/23 12:18 Freq: Status: Active Protocol: Document 05/04/23 12:18 NM (Rec: 05/04/23 16:14 NM [id number]) Trunk Strength Trunk Manual Muscle Testing Testing Position supine, sitting, standing Flexion 4 Good Extension 4 Good Rotation Left 4+ Good+ Rotation Right 4+ Good+ Lateral Flexion Left 4+ Good+ Lateral Flexion Right 4+ Good+ Comments No pain with resisted movements Hip Strength Hip Manual Muscle Testing Right Flexion (L2) 4+ Good+ Extension (S1) 4+ Good+ Abduction 4+ Good+ Adduction 4+ Good+ External Rotation 4+ Good+ Internal Rotation 4+ Good+ Left Flexion (L2) 4+ Good+ Extension (S1) 4+ Good+ Abduction 4+ Good+ Adduction 4+ Good+ External Rotation 4+ Good+ Internal Rotation 4+ Good+ Knee Strength Knee Manual Muscle Testing Right Flexion (S2) 4+ Good+ Extension (L3) 4+ Good+ Left Flexion (S2) 4+ Good+ Extension (L3) 4+ Good+ Ankle/Foot Strength Ankle and Foot Manual Muscle Testing Left Dorsiflexion (L4) 4+ Good+ Plantarflexion (S1) 4+ Good+ Right Dorsiflexion (L4) 4+ Good+ Plantarflexion (S1) 4+ Good+ PT-OP-Q Treatments Start: 05/04/23 12:18 Freq: Status: Active Protocol: Document 06/08/23 13:55 SP (Rec: 06/08/23 14:48 SP [id number]) Therapeutic Exercises Supine Exercises bridge Supine Exercise Name segmentally; with neutral Side bilateral Resistance AROM Reps/Minutes 2x10 Comments cue for neutral spine, ppt able lift higher slight pressure but pnfree back diphramatic breath Equipment Used hand on belly Reps/Minutes 5 reps Comments ed for neutral pelvis, good belly raise/lower Prone Exercises plank Prone Exercise Name 1. elbow/feet 2. full plank Side bilateral Equipment Used plinth Reps/Minutes 1. 30sec 2. 50 sec Comments reports no pain no instability , ed TKE and glut fac can help tiring stab Sidelying Exercises clams and reverse clams Sidelying Exercise Name following STM; issued as HEP Side bilateral Resistance lvl 2 teal> [place] clam, AROM reverse clam Reps/Minutes 5 reps x4 sets BLE Comments good hip alignment and core fac stab Standing Exercises Squat Standing Exercise Name with hip hinge- added to HEP Side bilateral Resistance TB #3 around knees Reps/Minutes 2x5 reps Comments brief tap chair 18 mesh- tiring- good hip hinge Therapeutic Activity Therapeutic Activity body mechanics lifting Name hip hinge lift box from floor Comments box + 10# DB x5 reps, 20# x5 reps- good form painfree to assimulate lifting daughter from floor. PT-OP-T Assessment and Plan Start: 05/04/23 12:18 Freq: Status: Active Protocol: Document 06/08/23 13:55 SP (Rec: 06/08/23 14:48 SP [id number]) Physical Therapy Assessment Goals Four Impairment strength Impairment trunk flexion MMT 4/5 Short Term Goal (STG) Pt will be able to maintain trunk flexion MMT position (5/ 5 arms behind head) with B scapula cleared from floor for at least 10 seconds in order to demonstrate improved trunk strength for return to work 06/01/23: arms across chest 4/5 10 sec STG Duration 5 weeks Retirement Goal (LTG) Pt will be able to maintain trunk flexion MMT position (5/ 5 arms behind head) with B scapula cleared from floor for at least 15 seconds in order to demonstrate improved trunk strength for return to work LTG Duration 10 weeks Three Impairment activity Impairment Pt unable to exercise/ participate in activity due to pain and fear of injury Short Term Goal (STG) Pt will initiate HEP and report compliance with HEP at least 3x/wk in order to begin compliance with independent exercise post discharge 06/01/23: reports daily for most of HEP STG Duration 5 weeks [employer] Goal (LTG) Pt will return to independent exercise program at least 3x/ wk in order to maintain strength gains and activity level for return to work LTG Duration 10 weeks Two Impairment strength Impairment unable to perform plank ( standard or modified) Short Term Goal (STG) Pt will be able to perform a plank for at least 20 seconds in order to demonstrate improved core and lumbar extensor strength for return to work 06/01/23: 20 sec but starts to demo instab STG Duration 5 weeks PROGRESSING Retirement Goal (LTG) Pt will be able to perform a plank for at least 45 seconds in order to demonstrate improved core and lumbar extensor strength for return to work LTG Duration 10 weeks One Impairment function Impairment Oswestry 8/50 Retirement Goal (LTG) Pt will decrease Oswestry score to <8/50 in order to demonstrate improved activity tolerance, QOL, and pain management LTG Duration 10 weeks Assessment Summary Assessment Pt tolerated ther ex, improved TA and PPT throughout ex, occasional cues for corrections. Tolerated increased resistance to squats with chair target to light tap/sit, good hip hinge prep to body mechanics lifting, no adverse affect. Trialed triangle for core, stab and spinal ROM with cues for scap/ trunk, reports little pressure on back but ok if mindful painfree range, gave with HO for HEP. Understands stop if bothersome. Ed for continue HEP athome for carryover. Physical Therapy Plan Frequency and Duration Frequency of Treatment 1x/Week Duration of treatment (weeks) 10 Plan of Care Start Date 05/04/23 Plan of Care End Date 07/13/23 Therapeutic Interventions Therapeutic Interventions Aquatic Therapy,Balance Training,Coordination Training ,Gait Training,Home Exercise Program,Joint Mobilizations, Manual Therapy,Neuromuscular Re-education,Orthotic/ Prosthetic Management,Patient/ Caregiver Education,Self-Care/ Home Management,Sensory Integration,Soft Tissue Mobilization,Taping, Therapeutic Activities, Therapeutic Exercises Modalities Cold Pack/Ice Massage,Electric Stimulation,Hot Packs, Traction- Mechanical, Ultrasound,Vasopneumatic Devices Next Visit Focus/Plan Next Note Type Treatment Note Next Visit Plan Assess response to increase resistance clamshell and squats. Next tx assess jogging response. Next session: trial SIJ related tx (bridge with ADD, cont IR/ER, stab belt). Core and lumbar strenthening and stabilization (flexion gurmeet> isotonics, pallof, etc). Progress lunge, hip abd, squat (coord better), hip hinge, lat pull down, TA activation/ core POC: Flexion-biased core strengthening and stretches, gentle lumbar extensor strengthening as tolerated, side steps, squats Initiate walking program/ exercise program and log Manual: lumbar mobilizations grade II, disc distraction/ traction
--- NOTE | 2023-06-15 14:30 | PT.OTN ---
Current Diagnoses Low back pain, unspecified (06/15/23) Dorsalgia, unspecified (06/15/23) Unspecified abdominal pain (06/15/23) Physical Therapy Treatment Note PT-OP-A Visit Information Start: 05/04/23 12:18 Freq: Status: Active Protocol: Document 06/15/23 13:50 SP (Rec: 06/15/23 14:32 SP [id number]) Out-Patient Physical Therapy Visit Information Visit Information Visit Type Treatment Note Visit Note 09/30 visits Visit Start Time 13:50 Visit Stop Time 14:30 Visit Number 6 Number of [employer] ASSOCIATE Visits 2 Evaluation Information Evaluation Date 05/04/23 PT-OP-B Current Condition Start: 05/04/23 12:18 Freq: Status: Active Protocol: Document 05/04/23 12:18 NM (Rec: 05/04/23 14:19 NM [id number]) Current Condition History of Current Condition Onset Date October 2022 Current Complaints weakness, pain History of Current Condition Pt presents with low back pain after an injury in October while working in [place] when pulling a net back out of the water without help. 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 He worked through the pain and has 2 ED visits. He reinjured it a second time while stacking wood in the fall of 2022. 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 He does not do anything anymore recreationally (e.g. basketball). Surgeon is recommending injections. He reports that his back wears outs, someone is pressing on my back/nerves. He reports that his back was often sore prior to the initial injury. He is having most difficulty with lifting, twisting, standing (needs to lean on something); able to bend forward but causes pain the next day. He is currently taking care of his . No numbness or tingling, but reports pain in his buttocks sore. Pt reports changes in balance, bumping into objects, less movement, poor endurance . No saddle anesthesia, bowel or bladder. No falls PT-OP-C Subjective Start: 05/04/23 12:18 Freq: Status: Active Protocol: Document 06/15/23 13:50 SP (Rec: 06/15/23 14:32 SP [id number]) OP-PT Subjective Patient Comments Patient Comments Pt reports has had to move all items out of house to family while house being worked on. did have pain by end of days and found diaphramatic breathing helped with pain reduction. Did alot bending, squatting, lifting so didn't do alot exercises. Demonstrated good mechanics. He also said found picking up daughter SLS and hip hinge tiring but no pain doing certain way or sore. PT-OP-D Balance Start: 05/04/23 12:18 Freq: Status: Active Protocol: Document 05/04/23 12:18 NM (Rec: 05/04/23 16:14 NM [id number]) Balance Tests Romberg Romberg 30 sec; no sway Single Limb Standing Single Limb- Right 30 sec Single Limb- Left 25 sec Tandem Tandem Standing 10 sec BLE; increased trunk sway PT-OP-E Functional Tests Start: 05/04/23 12:18 Freq: Status: Active Protocol: Document 05/04/23 12:18 NM (Rec: 05/04/23 16:14 NM [id number]) Functional Tests 30 Second Sit to Stand Test Score 20 Comments no pain reported; reports fatiguing toward end PT-OP-F Manual Assessment Start: 05/04/23 12:18 Freq: Status: Active Protocol: Document 05/04/23 12:18 NM (Rec: 05/04/23 16:14 NM [id number]) Manual Assessments Soft Tissue Assessment Soft Tissue Mobility Assessment Tenderness and increased tone of R glutes, especially external rotators (piriformis) Joint Mobility Assessment Joint Mobility Assessment Tenderness with posterior- anterior spinous process springing along lower lumbar spine (L4-L5) and S1, near R PSIS. Piriformis and lumbar spine concordant pain reproduced with prone hip IR. Full hip AROM and PROM in supine PT-OP-G Mobility & Gait Start: 05/04/23 12:18 Freq: Status: Active Protocol: Document 05/04/23 12:18 NM (Rec: 05/04/23 16:14 NM [id number]) OP Gait Assessment Gait Gait Assistance Required: Independent Distance (Feet) 150 Assistive Devices Assistive Device None Gait Deviations General Gait Pattern Lateral Trunk Lean Factors Limiting Gait Function Factors Limiting Gait Function Decreased Activity Tolerance, Pain Comments Gait Comments Demos slight R lateral trunk shift with gait PT-OP-H Neuro Start: 05/04/23 12:18 Freq: Status: Active Protocol: Document 05/04/23 12:18 NM (Rec: 05/04/23 14:19 NM [id number]) Sensation Evaluation Gross Sensation Gross Sensation WNL Comments Summary Comments BLE intact to light touch sensation equally PT-OP-J Posture/Palpation/Skin Start: 05/04/23 12:18 Freq: Status: Active Protocol: Document 05/04/23 12:18 NM (Rec: 05/04/23 16:14 NM [id number]) Posture Evaluation Position Standing Evaluation View post, ant, lateral Head/C-Spine Posture Forward Head T-Spine Posture Neutral Thorax Posture Neutral L-Spine Posture Increased Lordosis Pelvis Posture Anteriorly Tilted Weight Distribution Balanced Hip Posture (L) Externally Rotated,(R) Externally Rotated Knee Posture (L) Neutral,(R) Neutral Ankle/Foot Posture (L) Pronated,(R) Pronated Palpation Assessment Location Lumbar spine Palpation Location paraspinals, spinous/ transverse processes, glutes, QL Palpation Findings Soft Tissue Tightness,Muscle Guarding,Tenderness Palpation Details Tenderness along R glutes with palpation, worse with passive prone hip IR. Minimal restrictions and tenderness at R QL. Minimal tenderness (pt states not pain) along L4-L5 spinous processes. Atrophy of B paraspinals PT-OP-K Range of Motion Start: 05/04/23 12:18 Freq: Status: Active Protocol: Document 05/04/23 12:18 NM (Rec: 05/04/23 16:14 NM [id number]) Lumbar Spine Range of Motion Lumbar Spine Active Percentage Testing Position Standing Flexion 100 Extension 100 Rotation Left 8 Rotation Right 8 Lateral Flexion Left 100 Lateral Flexion Right 100 ROM Limitations Soft Tissue Tightness,Muscle Weakness Comments No pain reported into extension but pt states feels weak in that direction. Pain reported with return to neutral spine after R lateral flexion. Lateral flex to B knee joint line (100%) PT-OP-L Special Tests Start: 05/04/23 12:18 Freq: Status: Active Protocol: Document 05/04/23 12:18 NM (Rec: 05/04/23 16:14 NM [id number]) Special Tests Lumbar Spine Special Tests Distraction Test Results + Comments symptom relief Kunz/Quadrant Test Results + Comments reports minimal pain R trunk; local Straight Leg Raise Test Results + Comments RLE Slump Test Results - PT-OP-M Strength Start: 05/04/23 12:18 Freq: Status: Active Protocol: Document 05/04/23 12:18 NM (Rec: 05/04/23 16:14 NM [id number]) Trunk Strength Trunk Manual Muscle Testing Testing Position supine, sitting, standing Flexion 4 Good Extension 4 Good Rotation Left 4+ Good+ Rotation Right 4+ Good+ Lateral Flexion Left 4+ Good+ Lateral Flexion Right 4+ Good+ Comments No pain with resisted movements Hip Strength Hip Manual Muscle Testing Right Flexion (L2) 4+ Good+ Extension (S1) 4+ Good+ Abduction 4+ Good+ Adduction 4+ Good+ External Rotation 4+ Good+ Internal Rotation 4+ Good+ Left Flexion (L2) 4+ Good+ Extension (S1) 4+ Good+ Abduction 4+ Good+ Adduction 4+ Good+ External Rotation 4+ Good+ Internal Rotation 4+ Good+ Knee Strength Knee Manual Muscle Testing Right Flexion (S2) 4+ Good+ Extension (L3) 4+ Good+ Left Flexion (S2) 4+ Good+ Extension (L3) 4+ Good+ Ankle/Foot Strength Ankle and Foot Manual Muscle Testing Left Dorsiflexion (L4) 4+ Good+ Plantarflexion (S1) 4+ Good+ Right Dorsiflexion (L4) 4+ Good+ Plantarflexion (S1) 4+ Good+ PT-OP-Q Treatments Start: 05/04/23 12:18 Freq: Status: Active Protocol: Document 06/15/23 13:50 SP (Rec: 06/15/23 14:32 SP [id number]) Therapeutic Exercises Supine Exercises stretching Supine Exercise Name KTC, piriformis Side bilateral Reps/Minutes 30 x2 each LE each Comments good response bridge Supine Exercise Name 1. bridge 2. SL bridge Side bilateral Resistance AROM Reps/Minutes 1. x10 warm up 2. 3x5 reps Comments Cued slower pacing SL, pnfree height Prone Exercises plank Prone Exercise Name 1. elbow/feet Side bilateral Equipment Used plinth Reps/Minutes 1. 60 sec Comments pnfree, tiring Sidelying Exercises clams and reverse clams Sidelying Exercise Name reviewed HEP Side bilateral Resistance #3 pamunkey green clam, AROM reverse clam Reps/Minutes 1x10 each, 5 x 3 sec hold clam Comments good hip alignment and core fac stab Standing Exercises bottoms up Standing Exercise Name Trial Equipment Used 12>8 step Reps/Minutes 20 Comments good HS pnfree TA/PT if needed correction Squat Standing Exercise Name squat taps HEP Side bilateral Resistance TB #3 around knees, 5# DB press out into squat/in stand Reps/Minutes x10 reps Comments tiring, good hip hinge Lunge Standing Exercise Name 1. 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 AROM lunge Side bilateral Resistance 1. 10# db, 2. AROM Reps/Minutes 1. 1x10 alternating 2. x10 ea Comments good hip hinge, knee flex Hip hinge Standing Exercise Name deadlift Side bilateral Resistance dowel +10# leg wt Reps/Minutes 2x10 Comments good form Neuro Re-Education Treatment Balance Activities shuttle balanc Details light contact shirt safety Surface red clips Comments WBOS: HTs, EC up to 10 sec before board touched floor Stride stance: HTs Cued posture, TA , even WB PT-OP-T Assessment and Plan Start: 05/04/23 12:18 Freq: Status: Active Protocol: Document 06/15/23 13:50 SP (Rec: 06/15/23 14:32 SP [id number]) Physical Therapy Assessment Goals Four Impairment strength Impairment trunk flexion MMT 4/5 Short Term Goal (STG) Pt will be able to maintain trunk flexion MMT position (5/ 5 arms behind head) with B scapula cleared from floor for at least 10 seconds in order to demonstrate improved trunk strength for return to work 06/01/23: arms across chest 4/5 10 sec STG Duration 5 weeks Nursing Home Goal (LTG) Pt will be able to maintain trunk flexion MMT position (5/ 5 arms behind head) with B scapula cleared from floor for at least 15 seconds in order to demonstrate improved trunk strength for return to work LTG Duration 10 weeks Three Impairment activity Impairment Pt unable to exercise/ participate in activity due to pain and fear of injury Short Term Goal (STG) Pt will initiate HEP and report compliance with HEP at least 3x/wk in order to begin compliance with independent exercise post discharge 06/01/23: reports daily for most of HEP STG Duration 5 weeks MET Nursing Home Goal (LTG) Pt will return to independent exercise program at least 3x/ wk in order to maintain strength gains and activity level for return to work LTG Duration 10 weeks Two Impairment strength Impairment unable to perform plank ( standard or modified) Short Term Goal (STG) Pt will be able to perform a plank for at least 20 seconds in order to demonstrate improved core and lumbar extensor strength for return to work 06/01/23: 20 sec but starts to demo instab 06/15/23: GOAL MET: off forearms elbows 60 sec, good self LS correction- tiring pnfree reported. STG Duration 5 weeks GOAL MET 06/15/23 Nursing Home Goal (LTG) Pt will be able to perform a plank for at least 45 seconds in order to demonstrate improved core and lumbar extensor strength for return to work 06/15/23: GOAL MET: off forearms elbows 60 sec, good self LS correction- tiring pnfree reported. 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 Assessment Summary Assessment Pt good effort with all ther ex and some added resistance with no reports of back vulnerabililty nor pain but does have to put focused attention to TA for support of back. Pt was able to increase and meet plank goal. Continue ed as needed for body mechanics with resistance back alignment and TA. Pt reports felt ok end tx. Encouraged to continue these harder ex for home carryover in strength to support back. Initiated uneven balance activity with core and postural corrections for stability EO/EC, no adverse affects. Physical Therapy Plan Frequency and Duration Frequency of Treatment 1x/Week Duration of treatment (weeks) 10 Plan of Care Start Date 05/04/23 Plan of Care End Date 07/13/23 Therapeutic Interventions Therapeutic Interventions Aquatic Therapy,Balance Training,Coordination Training ,Gait Training,Home Exercise Program,Joint Mobilizations, Manual Therapy,Neuromuscular Re-education,Orthotic/ Prosthetic Management,Patient/ Caregiver Education,Self-Care/ Home Management,Sensory Integration,Soft Tissue Mobilization,Taping, Therapeutic Activities, Therapeutic Exercises Modalities Cold Pack/Ice Massage,Electric Stimulation,Hot Packs, Traction- Mechanical, Ultrasound,Vasopneumatic Devices Next Visit Focus/Plan Next Note Type Treatment Note Next Visit Plan Next tx assess jogging. Assess response to increase resistance clamshell, squat press out, lunges, added SL bridge, progress TA and balance (balloon) for funcitonal mobility. Next session: trial SIJ related tx (bridge with ADD, cont IR/ER, stab belt). Core and lumbar strenthening and stabilization (flexion gurmeet> isotonics, pallof, etc). Progress lunge, hip abd, squat (coord better), hip hinge, lat pull down, TA activation/ core POC: Flexion-biased core strengthening and stretches, gentle lumbar extensor strengthening as tolerated, side steps, squats Initiate walking program/ exercise program and log Manual: lumbar mobilizations grade II, disc distraction/ traction
--- NOTE | 2023-06-22 15:57 | PT.OTN ---
Current Diagnoses Low back pain, unspecified (06/22/23) Dorsalgia, unspecified (06/22/23) Unspecified abdominal pain (06/22/23) Physical Therapy Treatment Note PT-OP-A Visit Information Start: 05/04/23 12:18 Freq: Status: Active Protocol: Document 06/22/23 13:46 NM (Rec: 06/22/23 14:34 NM [id number]) Out-Patient Physical Therapy Visit Information Visit Information Visit Type Progress Note Visit Note 10/30 visits Visit Start Time 13:47 Visit Stop Time 14:30 Visit Number 7 Evaluation Information Evaluation Date 05/04/23 PT-OP-B Current Condition Start: 05/04/23 12:18 Freq: Status: Active Protocol: Document 05/04/23 12:18 NM (Rec: 05/04/23 14:19 NM [id number]) Current Condition History of Current Condition Onset Date October 2022 Current Complaints weakness, pain History of Current Condition Pt presents with low back pain after an injury in October while working in [place] when pulling a net back out of the water without help. 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 He worked through the pain and has 2 ED visits. He reinjured it a second time while stacking wood in the fall of 2022. 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 He does not do anything anymore recreationally (e.g. basketball). Surgeon is recommending injections. He reports that his back wears outs, someone is pressing on my back/nerves. He reports that his back was often sore prior to the initial injury. He is having most difficulty with lifting, twisting, standing (needs to lean on something); able to bend forward but causes pain the next day. He is currently taking care of his . No numbness or tingling, but reports pain in his buttocks sore. Pt reports changes in balance, bumping into objects, less movement, poor endurance . No saddle anesthesia, bowel or bladder. No falls PT-OP-C Subjective Start: 05/04/23 12:18 Freq: Status: Active Protocol: Document 06/22/23 13:46 NM (Rec: 06/22/23 14:34 NM [id number]) OP-PT Subjective Patient Comments Patient Comments Pt reports that his back is acting up over past few days. He reports soreness at L glutes/piriformis. He has performed non-banded hip exercise, walking, bridges. Right now, he reports that he feels like he has not improved . He recently moved back to his house, lifting a lot and fed his daughter in an awkward sidelying position. He has not followed up with PCP about medication changes because I don't want to have that conversation with him PT-OP-D Balance Start: 05/04/23 12:18 Freq: Status: Active Protocol: Document 05/04/23 12:18 NM (Rec: 05/04/23 16:14 NM [id number]) Balance Tests Romberg Romberg 30 sec; no sway Single Limb Standing Single Limb- Right 30 sec Single Limb- Left 25 sec Tandem Tandem Standing 10 sec BLE; increased trunk sway PT-OP-E Functional Tests Start: 05/04/23 12:18 Freq: Status: Active Protocol: Document 05/04/23 12:18 NM (Rec: 05/04/23 16:14 NM [id number]) Functional Tests 30 Second Sit to Stand Test Score 20 Comments no pain reported; reports fatiguing toward end PT-OP-F Manual Assessment Start: 05/04/23 12:18 Freq: Status: Active Protocol: Document 05/04/23 12:18 NM (Rec: 05/04/23 16:14 NM [id number]) Manual Assessments Soft Tissue Assessment Soft Tissue Mobility Assessment Tenderness and increased tone of R glutes, especially external rotators (piriformis) Joint Mobility Assessment Joint Mobility Assessment Tenderness with posterior- anterior spinous process springing along lower lumbar spine (L4-L5) and S1, near R PSIS. Piriformis and lumbar spine concordant pain reproduced with prone hip IR. Full hip AROM and PROM in supine PT-OP-G Mobility & Gait Start: 05/04/23 12:18 Freq: Status: Active Protocol: Document 05/04/23 12:18 NM (Rec: 05/04/23 16:14 NM [id number]) OP Gait Assessment Gait Gait Assistance Required: Independent Distance (Feet) 150 Assistive Devices Assistive Device None Gait Deviations General Gait Pattern Lateral Trunk Lean Factors Limiting Gait Function Factors Limiting Gait Function Decreased Activity Tolerance, Pain Comments Gait Comments Demos slight R lateral trunk shift with gait PT-OP-H Neuro Start: 05/04/23 12:18 Freq: Status: Active Protocol: Document 05/04/23 12:18 NM (Rec: 05/04/23 14:19 NM [id number]) Sensation Evaluation Gross Sensation Gross Sensation WNL Comments Summary Comments BLE intact to light touch sensation equally PT-OP-J Posture/Palpation/Skin Start: 05/04/23 12:18 Freq: Status: Active Protocol: Document 05/04/23 12:18 NM (Rec: 05/04/23 16:14 NM [id number]) Posture Evaluation Position Standing Evaluation View post, ant, lateral Head/C-Spine Posture Forward Head T-Spine Posture Neutral Thorax Posture Neutral L-Spine Posture Increased Lordosis Pelvis Posture Anteriorly Tilted Weight Distribution Balanced Hip Posture (L) Externally Rotated,(R) Externally Rotated Knee Posture (L) Neutral,(R) Neutral Ankle/Foot Posture (L) Pronated,(R) Pronated Palpation Assessment Location Lumbar spine Palpation Location paraspinals, spinous/ transverse processes, glutes, QL Palpation Findings Soft Tissue Tightness,Muscle Guarding,Tenderness Palpation Details Tenderness along R glutes with palpation, worse with passive prone hip IR. Minimal restrictions and tenderness at R QL. Minimal tenderness (pt states not pain) along L4-L5 spinous processes. Atrophy of B paraspinals PT-OP-K Range of Motion Start: 05/04/23 12:18 Freq: Status: Active Protocol: Document 06/22/23 13:46 NM (Rec: 06/22/23 14:34 NM [id number]) Lumbar Spine Range of Motion Lumbar Spine Active Percentage Testing Position Standing Flexion 100 Extension 100 Rotation Left 8 Rotation Right 8 Lateral Flexion Left 100 Lateral Flexion Right 100 ROM Limitations Soft Tissue Tightness,Muscle Weakness Comments No pain reported into extension but pt states feels weak in that direction. Pain reported with return to neutral spine after R lateral flexion. Lateral flex to B knee joint line (100%) 06/22/23: 100% flexion, extension, B lateral flexion AROM, and B rotation 10 cm ea. No pain with any movement PT-OP-L Special Tests Start: 05/04/23 12:18 Freq: Status: Active Protocol: Document 05/04/23 12:18 NM (Rec: 05/04/23 16:14 NM [id number]) Special Tests Lumbar Spine Special Tests Distraction Test Results + Comments symptom relief Kunz/Quadrant Test Results + Comments reports minimal pain R trunk; local Straight Leg Raise Test Results + Comments RLE Slump Test Results - PT-OP-M Strength Start: 05/04/23 12:18 Freq: Status: Active Protocol: Document 06/22/23 13:46 NM (Rec: 06/22/23 14:34 NM [id number]) Trunk Strength Trunk Manual Muscle Testing Testing Position supine, sitting, standing Flexion 4 Good Extension 4 Good Rotation Left 4+ Good+ Rotation Right 4+ Good+ Lateral Flexion Left 4+ Good+ Lateral Flexion Right 4+ Good+ Comments No pain with resisted movements 06/22/23: Able to maintain 5/5 position for trunk flexion test w/o pain; 06/15/23: performed 60 sec plank w/o pain PT-OP-Q Treatments Start: 05/04/23 12:18 Freq: Status: Active Protocol: Document 06/22/23 13:46 NM (Rec: 06/22/23 14:34 NM [id number]) Therapeutic Exercises Supine Exercises bridge Supine Exercise Name SL bridge Side bilateral Resistance AROM Reps/Minutes 2x8 ea Comments Cued slower pacing SL, pain free, full hip AROM Prone Exercises plank Prone Exercise Name retry next session Sitting Exercises hip ER Side bilateral Resistance lvl 3 tb at ankle Equipment Used PT holding resistance band Reps/Minutes 2x10 ea Comments pain free, full AROM hip IR Side bilateral Resistance lvl 3 tb at ankles Equipment Used pillow between knees Reps/Minutes 2x10 Comments reports L glute tightness that decreased w reps, no pain Standing Exercises side steps Standing Exercise Name trialed in PT, added to HEP Side bilateral Resistance lvl 3 tb around ankles> feet Reps/Minutes 2x20 ft Comments progressed because easy, pain free, hip hinge position bottoms up Standing Exercise Name reviewed Side bilateral Equipment Used 12 plinth Reps/Minutes 20x3 Comments reports good stretch of HS, pain free Squat Standing Exercise Name 1. squat taps, 2. squat tap w overhead lift Side bilateral Resistance 10# tball Reps/Minutes 1. 1x10, 2. 1x10 ea Comments cued for knee flex; good hip hinge; pain free for all Hip hinge Standing Exercise Name deadlift Side bilateral Resistance 10# db held by both hands Reps/Minutes 2x10 Comments good form, cues slight knee flex coordination; pain free Other Exercises self soft tissue mobilization Other Exercise Name paraspinals L>R Side bilateral Reps/Minutes 2 min Comments beginning of session; reports tight but not painful Manual Therapy Treatment Soft Tissue Mobilization R>L back, hip Body Location B erector spinae, B QL Mobilization Type Oscillations,Rolling,Strumming ,Sustained Pressure,Other Intensity/Depth Deep Body Position Prone Comments Rolling, oscillations, strumming of B paraspinals, L more restricted than R today. Reports no pain, just very restricted. Improved post self soft tissue mobilization as well. Demos slight spasms L paraspinals Joint Mobilizations lumbar spine Joint L PSIS, SIJ Direction P-A Grade II Body Position Prone Reps/Duration 1x10 Comments For pain reduction, L feels more anterior than R side. Manual Techniques Muscle Energy Technique Body Location LLE hip ext, RLE hip flex isometric Body Position Hooklying Reps/Duration 5x5 Comments L PSIS more ant rotated so performed MET using dowel between legs with LLE pushing into hip ext, RLE pushing into hip flexion creating isometric Original Supine to long sit: L longer>short, Retested: even length. Pt reports pain free after Self-Care/Home Management Treatment Education Patient Education Body Mechanics,Home Exercise Program,Joint Protection,Pain Management Other Education 5 minutes: Educated on body mechanics during ADLs, lifting , jumping, holding daughter. HEP: added side steps. Educated on modalities, continued HEP and daily ambulation for pain relief, slow return to PLOF with symptom management and activity modification PT-OP-T Assessment and Plan Start: 05/04/23 12:18 Freq: Status: Active Protocol: Document 06/22/23 13:46 NM (Rec: 06/22/23 14:34 NM [id number]) Physical Therapy Assessment Goals Four Impairment strength Impairment trunk flexion MMT 4/5 Short Term Goal (STG) Pt will be able to maintain trunk flexion MMT position (5/ 5 arms behind head) with B scapula cleared from floor for at least 10 seconds in order to demonstrate improved trunk strength for return to work 06/01/23: arms across chest 4/5 10 sec 06/22/23: 20 seconds, pain free STG Duration 5 weeks 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 (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) Pt will be able to maintain trunk flexion MMT position (5/ 5 arms behind head) with B scapula cleared from floor for at least 15 seconds in order to demonstrate improved trunk strength for return to work 06/22/23: 20 seconds, pain free LTG Duration 10 weeks MET Three Impairment activity Impairment Pt unable to exercise/ participate in activity due to pain and fear of injury Short Term Goal (STG) Pt will initiate HEP and report compliance with HEP at least 3x/wk in order to begin compliance with independent exercise post discharge 06/01/23: reports daily for most of HEP STG Duration 5 weeks MET Mcfp Goal (LTG) Pt will return to independent exercise program at least 3x/ wk in order to maintain strength gains and activity level for return to work LTG Duration 10 weeks One Impairment function Impairment Oswestry 8/50 Mcfp Goal (LTG) Pt will decrease Oswestry score to <8/50 in order to demonstrate improved activity tolerance, QOL, and pain management 06/22/23: 5/50, post session LTG Duration 10 weeks Progress Towards Goals Progress Towards Goals Progressing Toward Goals,Goals Met Progress Comments Met both strength goals and QOL/Oswestry goal Progressing toward HEP/fear of movement goal Assessment Summary Assessment Pt arrived to session with antalgic gait and increased pain compared to previous session. Started session with manual treatment for pain reduction. Performed muscle energy technique for pain reduction, pt able to participate in remainder of session without pain. Progressed squats, deadlifts, and hip abduction/ER/IR strengthening. Pt requires cues for form, performing a hip hinge very well but limits knee flexion AROM with squats , deadlifts, and side steps unless cued. Pt with good effort in sessions, but poor compliance with HEP outside of session. Issued exercise log at pt request for improved compliance. Pt has been seen x6 visits since IE in April 2023 for low back pain. He is progressing well toward goals. Currently, pt has met trunk strength and pain management goals. He is progressing toward returning to PLOF. Pt continues to demonstrate kinesophobia due to pain, which limits his ability to participate completely in ADLs /IADLs and recreational activities; he uncertain if he will return to work due to his injury. Pt needs functional strengthening and body mechanics training. Pt would benefit from progressive BLE, trunk and core strengthening to improve activity tolerance and pain management strategies for when pt returns to work. Physical Therapy Plan Frequency and Duration Frequency of Treatment 1x/Week Duration of treatment (weeks) 10 Plan of Care Start Date 05/04/23 Plan of Care End Date 07/13/23 Therapeutic Interventions Therapeutic Interventions Aquatic Therapy,Balance Training,Coordination Training ,Gait Training,Home Exercise Program,Joint Mobilizations, Manual Therapy,Neuromuscular Re-education,Orthotic/ Prosthetic Management,Patient/ Caregiver Education,Self-Care/ Home Management,Sensory Integration,Soft Tissue Mobilization,Taping, Therapeutic Activities, Therapeutic Exercises Modalities Cold Pack/Ice Massage,Electric Stimulation,Hot Packs, Traction- Mechanical, Ultrasound,Vasopneumatic Devices Next Visit Focus/Plan Next Note Type Treatment Note Next Visit Plan Next tx assess jogging if able . Trial leg press, pallof, step up, lunges, balance Assess response to increase resistance clamshell, squat press out, lunges, added SL bridge, progress TA and balance (balloon) for funcitonal mobility. Next session: trial SIJ related tx (bridge with ADD, cont IR/ER, stab belt). Core and lumbar strenthening and stabilization (flexion gurmeet> isotonics, pallof, etc). Progress lunge, hip abd, squat (coord better), hip hinge, lat pull down, TA activation/ core POC: Flexion-biased core strengthening and stretches, gentle lumbar extensor strengthening as tolerated, side steps, squats Initiate walking program/ exercise program and log Manual: lumbar mobilizations grade II, disc distraction/ traction
--- NOTE | 2023-07-06 14:33 | PT.OTN ---
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 He worked through the pain and has 2 ED visits. He reinjured it a second time while stacking wood in the fall of 2022. 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 He does not do anything anymore recreationally (e.g. basketball). Surgeon is recommending injections. He reports that his back wears outs, someone is pressing on my back/nerves. He reports that his back was often sore prior to the initial injury. He is having most difficulty with lifting, twisting, standing (needs to lean on something); able to bend forward but causes pain the next day. He is currently taking care of his . No numbness or tingling, but reports pain in his buttocks sore. Pt reports changes in balance, bumping into objects, less movement, poor endurance . No saddle anesthesia, bowel or bladder. No falls PT-OP-C Subjective Start: 05/04/23 12:18 Freq: Status: Active Protocol: Document 07/06/23 13:49 SP (Rec: 07/06/23 14:36 SP [id number]) OP-PT Subjective Patient Comments Patient Comments Pt reports stretches helping and not uncertain of return to work with continued back pain . Hunches over to feed daughter while she laying on bed. PT-OP-D Balance Start: 05/04/23 12:18 Freq: Status: Active Protocol: Document 05/04/23 12:18 NM (Rec: 05/04/23 16:14 NM [id number]) Balance Tests Romberg Romberg 30 sec; no sway Single Limb Standing Single Limb- Right 30 sec Single Limb- Left 25 sec Tandem Tandem Standing 10 sec BLE; increased trunk sway PT-OP-E Functional Tests Start: 05/04/23 12:18 Freq: Status: Active Protocol: Document 05/04/23 12:18 NM (Rec: 05/04/23 16:14 NM [id number]) Functional Tests 30 Second Sit to Stand Test Score 20 Comments no pain reported; reports fatiguing toward end PT-OP-F Manual Assessment Start: 05/04/23 12:18 Freq: Status: Active Protocol: Document 05/04/23 12:18 NM (Rec: 05/04/23 16:14 NM [id number]) Manual Assessments Soft Tissue Assessment Soft Tissue Mobility Assessment Tenderness and increased tone of R glutes, especially external rotators (piriformis) Joint Mobility Assessment Joint Mobility Assessment Tenderness with posterior- anterior spinous process springing along lower lumbar spine (L4-L5) and S1, near R PSIS. Piriformis and lumbar spine concordant pain reproduced with prone hip IR. Full hip AROM and PROM in supine PT-OP-G Mobility & Gait Start: 05/04/23 12:18 Freq: Status: Active Protocol: Document 05/04/23 12:18 NM (Rec: 05/04/23 16:14 NM [id number]) OP Gait Assessment Gait Gait Assistance Required: Independent Distance (Feet) 150 Assistive Devices Assistive Device None Gait Deviations General Gait Pattern Lateral Trunk Lean Factors Limiting Gait Function Factors Limiting Gait Function Decreased Activity Tolerance, Pain Comments Gait Comments Demos slight R lateral trunk shift with gait PT-OP-H Neuro Start: 05/04/23 12:18 Freq: Status: Active Protocol: Document 05/04/23 12:18 NM (Rec: 05/04/23 14:19 NM [id number]) Sensation Evaluation Gross Sensation Gross Sensation WNL Comments Summary Comments BLE intact to light touch sensation equally PT-OP-J Posture/Palpation/Skin Start: 05/04/23 12:18 Freq: Status: Active Protocol: Document 05/04/23 12:18 NM (Rec: 05/04/23 16:14 NM [id number]) Posture Evaluation Position Standing Evaluation View post, ant, lateral Head/C-Spine Posture Forward Head T-Spine Posture Neutral Thorax Posture Neutral L-Spine Posture Increased Lordosis Pelvis Posture Anteriorly Tilted Weight Distribution Balanced Hip Posture (L) Externally Rotated,(R) Externally Rotated Knee Posture (L) Neutral,(R) Neutral Ankle/Foot Posture (L) Pronated,(R) Pronated Palpation Assessment Location Lumbar spine Palpation Location paraspinals, spinous/ transverse processes, glutes, QL Palpation Findings Soft Tissue Tightness,Muscle Guarding,Tenderness Palpation Details Tenderness along R glutes with palpation, worse with passive prone hip IR. Minimal restrictions and tenderness at R QL. Minimal tenderness (pt states not pain) along L4-L5 spinous processes. Atrophy of B paraspinals PT-OP-K Range of Motion Start: 05/04/23 12:18 Freq: Status: Active Protocol: Document 06/22/23 13:46 NM (Rec: 06/22/23 14:34 NM [id number]) Lumbar Spine Range of Motion Lumbar Spine Active Percentage Testing Position Standing Flexion 100 Extension 100 Rotation Left 8 Rotation Right 8 Lateral Flexion Left 100 Lateral Flexion Right 100 ROM Limitations Soft Tissue Tightness,Muscle Weakness Comments No pain reported into extension but pt states feels weak in that direction. Pain reported with return to neutral spine after R lateral flexion. Lateral flex to B knee joint line (100%) 06/22/23: 100% flexion, extension, B lateral flexion AROM, and B rotation 10 cm ea. No pain with any movement PT-OP-L Special Tests Start: 05/04/23 12:18 Freq: Status: Active Protocol: Document 05/04/23 12:18 NM (Rec: 05/04/23 16:14 NM [id number]) Special Tests Lumbar Spine Special Tests Distraction Test Results + Comments symptom relief Kunz/Quadrant Test Results + Comments reports minimal pain R trunk; local Straight Leg Raise Test Results + Comments RLE Slump Test Results - PT-OP-M Strength Start: 05/04/23 12:18 Freq: Status: Active Protocol: Document 06/22/23 13:46 NM (Rec: 06/22/23 14:34 NM [id number]) Trunk Strength Trunk Manual Muscle Testing Testing Position supine, sitting, standing Flexion 4 Good Extension 4 Good Rotation Left 4+ Good+ Rotation Right 4+ Good+ Lateral Flexion Left 4+ Good+ Lateral Flexion Right 4+ Good+ Comments No pain with resisted movements 06/22/23: Able to maintain 5/5 position for trunk flexion test w/o pain; 06/15/23: performed 60 sec plank w/o pain PT-OP-Q Treatments Start: 05/04/23 12:18 Freq: Status: Active Protocol: Document 07/06/23 13:49 SP (Rec: 07/06/23 14:36 SP [id number]) Cardio Equipment Treadmill Duration (Minutes) 6 Speed 3.0 walk, 4.8 jog, 6.4 run Incline 0 Other normal reji, level pelvis- pnfree Therapeutic Exercises Supine Exercises bridge Supine Exercise Name SL bridge Side bilateral Resistance AROM Reps/Minutes 2x15 ea Comments Cued slower pacing SL, pain free, full hip AROM Prone Exercises plank Prone Exercise Name elbow feet Side bilateral Equipment Used plinth Reps/Minutes 60 sec Comments pnfree, tiring light HS quiver at 40 sec, TKE as needed Standing Exercises D2 flexion Standing Exercise Name trialed in PT Side bilateral Resistance 10# DB Equipment Used squat assimulation D out of crib Reps/Minutes 2x10 Comments body mechanics paloff press Standing Exercise Name added to HEP Resistance TB #4 dark blue Reps/Minutes x15 Comments ed soft knee, NS, elongated posture, TA Self-Care/Home Management Treatment Education Patient Education Body Mechanics,Home Exercise Program,Joint Protection,Pain Management,Posture,Safety Other Education 15 min going over holding daughter (8 y/o) seated, pillows back alignmen in chair , pillow support under daughter in lap and allow daughter feed self/assist as needed PT-OP-T Assessment and Plan Start: 05/04/23 12:18 Freq: Status: Active Protocol: Document 07/06/23 13:49 SP (Rec: 07/06/23 14:36 SP [id number]) Physical Therapy Assessment Goals Four Impairment strength Impairment trunk flexion MMT 4/5 Short Term Goal (STG) Pt will be able to maintain trunk flexion MMT position (5/ 5 arms behind head) with B scapula cleared from floor for at least 10 seconds in order to demonstrate improved trunk strength for return to work 06/01/23: arms across chest 4/5 10 sec 06/22/23: 20 seconds, pain free STG Duration 5 weeks MEt Train Controller Goal (LTG) Pt will be able to maintain trunk flexion MMT position (5/ 5 arms behind head) with B scapula cleared from floor for at least 15 seconds in order to demonstrate improved trunk strength for return to work 06/22/23: 20 seconds, pain free LTG Duration 10 weeks MET Three Impairment activity Impairment Pt unable to exercise/ participate in activity due to pain and fear of injury Short Term Goal (STG) Pt will initiate HEP and report compliance with HEP at least 3x/wk in order to begin compliance with independent exercise post discharge 06/01/23: reports daily for most of HEP STG Duration 5 weeks MET Care Home Goal (LTG) Pt will return to independent exercise program at least 3x/ wk in order to maintain strength gains and activity level for return to work LTG Duration 10 weeks One Impairment function Impairment Oswestry 8/50 Train Controller Goal (LTG) Pt will decrease Oswestry score to <8/50 in order to demonstrate improved activity tolerance, QOL, and pain management 06/22/23: 5/50, post session LTG Duration 10 weeks Assessment Summary Assessment Pt good response to kelly walk , jog, run on treadmill, no concerns with form, tired at approx 6 min. Improved endurance plank off feet, slight quiver in B HS and core didn't come on til 45 sec with good corrections for TKE and back alignment support. Trialed funcitonal resisted rotation paloff press /c TB added to HEP has TB at home to use and carryover use DB D2 flexion continued ed apply picking up his daughter out of crib split stance diagonal progress core and back strengthening as discussed in previous tx's. Continued time spent back health positioning feeding daughter more seated in his lap vs rounded Lat lean on EOB. Encouraged him let his daughter feed herself more , less effort on his body and help her more I, pt found encourging. Pt stated back felt good end tx. Physical Therapy Plan Frequency and Duration Frequency of Treatment 1x/Week Duration of treatment (weeks) 10 Plan of Care Start Date 05/04/23 Plan of Care End Date 07/13/23 Therapeutic Interventions Therapeutic Interventions Aquatic Therapy,Balance Training,Coordination Training ,Gait Training,Home Exercise Program,Joint Mobilizations, Manual Therapy,Neuromuscular Re-education,Orthotic/ Prosthetic Management,Patient/ Caregiver Education,Self-Care/ Home Management,Sensory Integration,Soft Tissue Mobilization,Taping, Therapeutic Activities, Therapeutic Exercises Modalities Cold Pack/Ice Massage,Electric Stimulation,Hot Packs, Traction- Mechanical, Ultrasound,Vasopneumatic Devices Next Visit Focus/Plan Next Note Type Treatment Note Next Visit Plan recheck paloff press, D2 flexion standing; Next tx Trial leg press, step up, lunges, 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 Assess response to increase resistance clamshell, squat press out, added SL bridge, progress TA and balance ( balloon) for funcitonal mobility. Next session: trial SIJ related tx (bridge with ADD, cont IR/ER, stab belt). Core and lumbar strenthening and stabilization (flexion gurmeet> isotonics, pallof, etc). Progress lunge, hip abd, squat (coord better), hip hinge, lat pull down, TA activation/ core POC: Flexion-biased core strengthening and stretches, gentle lumbar extensor strengthening as tolerated, side steps, squats Initiate walking program/ exercise program and log Manual: lumbar mobilizations grade II, disc distraction/ traction
--- NOTE | 2023-07-13 15:48 | PT.OTN ---
Current Diagnoses Low back pain, unspecified (07/13/23) Dorsalgia, unspecified (07/13/23) Unspecified abdominal pain (07/13/23) Physical Therapy Treatment Note PT-OP-A Visit Information Start: 05/04/23 12:18 Freq: Status: Active Protocol: Document 07/13/23 13:46 NM (Rec: 07/13/23 14:31 NM [id number]) Out-Patient Physical Therapy Visit Information Visit Information Visit Type Progress Note Visit Note 12/31 visits Visit Start Time 13:47 Visit Stop Time 14:30 Visit Number 9 Evaluation Information Evaluation Date 05/04/23 PT-OP-B Current Condition Start: 05/04/23 12:18 Freq: Status: Active Protocol: Document 05/04/23 12:18 NM (Rec: 05/04/23 14:19 NM [id number]) Current Condition History of Current Condition Onset Date October 2022 Current Complaints weakness, pain History of Current Condition Pt presents with low back pain after an injury in October while working in [place] when pulling a net back out of the water without help. 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 He worked through the pain and has 2 ED visits. He reinjured it a second time while stacking wood in the fall of 2022. 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 He does not do anything anymore recreationally (e.g. basketball). Surgeon is recommending injections. He reports that his back wears outs, someone is pressing on my back/nerves. He reports that his back was often sore prior to the initial injury. He is having most difficulty with lifting, twisting, standing (needs to lean on something); able to bend forward but causes pain the next day. He is currently taking care of his . No numbness or tingling, but reports pain in his buttocks sore. Pt reports changes in balance, bumping into objects, less movement, poor endurance . No saddle anesthesia, bowel or bladder. No falls PT-OP-C Subjective Start: 05/04/23 12:18 Freq: Status: Active Protocol: Document 07/13/23 13:46 NM (Rec: 07/13/23 14:31 NM [id number]) OP-PT Subjective Patient Comments Patient Comments Pt reports that he can run. He reports soreness only when he has to hold his daughter or sitting for long periods of time (completely rotated). He states he called his boss and said he won't be going back to fishing this year. He says his back hasn't gone out in a while, reports no pain. States he can do everything that I need to do and wants stretches to d/c with rather than extend plan of care. PT-OP-D Balance Start: 05/04/23 12:18 Freq: Status: Active Protocol: Document 05/04/23 12:18 NM (Rec: 05/04/23 16:14 NM [id number]) Balance Tests Romberg Romberg 30 sec; no sway Single Limb Standing Single Limb- Right 30 sec Single Limb- Left 25 sec Tandem Tandem Standing 10 sec BLE; increased trunk sway PT-OP-E Functional Tests Start: 05/04/23 12:18 Freq: Status: Active Protocol: Document 05/04/23 12:18 NM (Rec: 05/04/23 16:14 NM [id number]) Functional Tests 30 Second Sit to Stand Test Score 20 Comments no pain reported; reports fatiguing toward end PT-OP-F Manual Assessment Start: 05/04/23 12:18 Freq: Status: Active Protocol: Document 05/04/23 12:18 NM (Rec: 05/04/23 16:14 NM [id number]) Manual Assessments Soft Tissue Assessment Soft Tissue Mobility Assessment Tenderness and increased tone of R glutes, especially external rotators (piriformis) Joint Mobility Assessment Joint Mobility Assessment Tenderness with posterior- anterior spinous process springing along lower lumbar spine (L4-L5) and S1, near R PSIS. Piriformis and lumbar spine concordant pain reproduced with prone hip IR. Full hip AROM and PROM in supine PT-OP-G Mobility & Gait Start: 05/04/23 12:18 Freq: Status: Active Protocol: Document 05/04/23 12:18 NM (Rec: 05/04/23 16:14 NM [id number]) OP Gait Assessment Gait Gait Assistance Required: Independent Distance (Feet) 150 Assistive Devices Assistive Device None Gait Deviations General Gait Pattern Lateral Trunk Lean Factors Limiting Gait Function Factors Limiting Gait Function Decreased Activity Tolerance, Pain Comments Gait Comments Demos slight R lateral trunk shift with gait PT-OP-H Neuro Start: 05/04/23 12:18 Freq: Status: Active Protocol: Document 05/04/23 12:18 NM (Rec: 05/04/23 14:19 NM [id number]) Sensation Evaluation Gross Sensation Gross Sensation WNL Comments Summary Comments BLE intact to light touch sensation equally PT-OP-J Posture/Palpation/Skin Start: 05/04/23 12:18 Freq: Status: Active Protocol: Document 05/04/23 12:18 NM (Rec: 05/04/23 16:14 NM [id number]) Posture Evaluation Position Standing Evaluation View post, ant, lateral Head/C-Spine Posture Forward Head T-Spine Posture Neutral Thorax Posture Neutral L-Spine Posture Increased Lordosis Pelvis Posture Anteriorly Tilted Weight Distribution Balanced Hip Posture (L) Externally Rotated,(R) Externally Rotated Knee Posture (L) Neutral,(R) Neutral Ankle/Foot Posture (L) Pronated,(R) Pronated Palpation Assessment Location Lumbar spine Palpation Location paraspinals, spinous/ transverse processes, glutes, QL Palpation Findings Soft Tissue Tightness,Muscle Guarding,Tenderness Palpation Details Tenderness along R glutes with palpation, worse with passive prone hip IR. Minimal restrictions and tenderness at R QL. Minimal tenderness (pt states not pain) along L4-L5 spinous processes. Atrophy of B paraspinals PT-OP-K Range of Motion Start: 05/04/23 12:18 Freq: Status: Active Protocol: Document 07/13/23 13:46 NM (Rec: 07/13/23 15:58 NM [id number]) Lumbar Spine Range of Motion Lumbar Spine Active Percentage Testing Position Standing Flexion 100 Extension 100 Rotation Left 8 Rotation Right 8 Lateral Flexion Left 100 Lateral Flexion Right 100 ROM Limitations Soft Tissue Tightness,Muscle Weakness Comments No pain reported into extension but pt states feels weak in that direction. Pain reported with return to neutral spine after R lateral flexion. Lateral flex to B knee joint line (100%) 07/13/23, 06/22/23: 100% flexion, extension, B lateral flexion AROM, and B rotation 10 cm ea. No pain with any movement PT-OP-L Special Tests Start: 05/04/23 12:18 Freq: Status: Active Protocol: Document 05/04/23 12:18 NM (Rec: 05/04/23 16:14 NM [id number]) Special Tests Lumbar Spine Special Tests Distraction Test Results + Comments symptom relief Kunz/Quadrant Test Results + Comments reports minimal pain R trunk; local Straight Leg Raise Test Results + Comments RLE Slump Test Results - PT-OP-M Strength Start: 05/04/23 12:18 Freq: Status: Active Protocol: Document 07/13/23 13:46 NM (Rec: 07/13/23 15:58 NM [id number]) Trunk Strength Trunk Manual Muscle Testing Testing Position supine, sitting, standing Flexion 4 Good Extension 4 Good Rotation Left 4+ Good+ Rotation Right 4+ Good+ Lateral Flexion Left 4+ Good+ Lateral Flexion Right 4+ Good+ Comments No pain with resisted movements 06/22/23: Able to maintain 5/5 position for trunk flexion test w/o pain; 06/15/23: performed 60 sec plank w/o pain 07/13/23: able to maintain 5/5 position for 30 seconds during trunk flexion test; plank 60 seconds PT-OP-Q Treatments Start: 05/04/23 12:18 Freq: Status: Active Protocol: Document 07/13/23 13:46 NM (Rec: 07/13/23 14:31 NM [id number]) Therapeutic Exercises Prone Exercises child's pose Prone Exercise Name 1. fwd, 2. lateral ea direction Side bilateral Reps/Minutes 1x30 ea Comments pain free, reports good stretch plank Prone Exercise Name elbow feet Side bilateral Equipment Used plinth Reps/Minutes 60 sec Comments 45 seconds before quiver, pain free Standing Exercises lat pull down Side bilateral Resistance lvl 4 cable Reps/Minutes 2x10 Comments pain free; cued neutral spine upright row Standing Exercise Name added to HEP with db/KB Side bilateral Resistance lvl 3 cable Reps/Minutes 2x15 Comments pain free carries Standing Exercise Name 1. dorantes carry, 2. suitcase carry Side bilateral Resistance 20# db Reps/Minutes 2x50 ft ea Comments pain free; cued upright posture D2 flexion Standing Exercise Name from /2 kneel with rotation Side bilateral Resistance 10# tball Equipment Used squat assimulation D out of crib Reps/Minutes 1x8 ea Comments body mechanics paloff press Standing Exercise Name 1. press, 2. press with rotation Resistance TB #4 dark blue Reps/Minutes 1. 1x15 ea, 2. 1x10 Comments ed soft knee, NS, elongated posture, TA Squat Standing Exercise Name squat with hinge, lifting ball from belly > chest Side bilateral Resistance 10# tball Equipment Used ~picking up baby and readjusting to protect back Reps/Minutes 1x10 Comments cued hip hinge, slower movements Hip hinge Standing Exercise Name deadlift> clean > overhead press Side bilateral Resistance 20# db held by both hands Reps/Minutes 1x10 Comments pain free; cued to keep weight close to body, neutral spine Self-Care/Home Management Treatment Education Patient Education Body Mechanics,Home Exercise Program,Joint Protection, Safety Other Education HEP: child pose fwd and latera , upright row, lat pull down, plank 8 minutes- reviewed past HEP, created maintenance program. Educated pt on maintenance program. Extensive education on body mechanics when lifting , holding, or feeding daughter . Recommended pt perform own body mechanics prior to adjusting daughter for safety, in addition to less jerky and more gentle movements for safety. Pt verbalizes understanding PT-OP-T Assessment and Plan Start: 05/04/23 12:18 Freq: Status: Active Protocol: Document 07/13/23 13:46 NM (Rec: 07/13/23 14:31 NM [id number]) Physical Therapy Assessment Goals Four Impairment strength Impairment trunk flexion MMT 07/12 Short Term Goal (STG) Pt will be able to maintain trunk flexion MMT position (5/ 5 arms behind head) with B scapula cleared from floor for at least 10 seconds in order to demonstrate improved trunk strength for return to work 06/01/23: arms across chest 4/ 10 sec 06/22/23: 20 seconds, pain free STG Duration 5 weeks [facility] Goal (LTG) Pt will be able to maintain trunk flexion MMT position (5/ 5 arms behind head) with B scapula cleared from floor for at least 15 seconds in order to demonstrate improved trunk strength for return to work 06/22/23: 20 seconds, pain free 07/13/23: 30 seconds, pain free LTG Duration 10 weeks MET Three Impairment activity Impairment Pt unable to exercise/ participate in activity due to pain and fear of injury Short Term Goal (STG) Pt will initiate HEP and report compliance with HEP at least 3x/wk in order to begin compliance with independent exercise post discharge 06/01/23: reports daily for most of HEP STG Duration 5 weeks MET Associate Sales Manager Goal (LTG) Pt will return to independent exercise program at least 3x/ wk in order to maintain strength gains and activity level for return to work 07/13/23: reports daily walks, daily HEP LTG Duration 10 weeks MET One Impairment function Impairment Oswestry 8/50 Associate Sales Manager Goal (LTG) Pt will decrease Oswestry score to <8/50 in order to demonstrate improved activity tolerance, QOL, and pain management 06/22/23: 5/50, post session 07/13/23: 50 LTG Duration 10 weeks MET Progress Towards Goals Progress Towards Goals Goals Met Progress Comments All goals met. Plank 1 min, 30 second flexion hold 5/5 MMT abdominals, full AROM Assessment Summary Assessment Pt tolerated session well and reports that he is pain free with all exercises. Session emphasis on lumbar/glute strengthening and body mechanics training. Pt able to perform several lifts without issue. He is planning on staying home with daughter, so simulated transfers/lifts with daughter that pt is having difficulty with. Initiated lat pull downs, upright rows, and deadlift> overhead press. Pt cued for hip hinge and neutral spine, but improved with reps. Pt asking to discharge this session vs extending POC. Pt was evaluated for back pain on 05/04/23. He currently has full trunk ROM and strength. Pt has progressed well toward goals and met all goals today. His Oswestry is 3/50, indicating improved QOL and activity tolerance. 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 He is planning on staying home with daughter vs returning to work on boat. He states that he is able to perform all ADLs/IADLs without pain. He only reports soreness with feeding his daughter; however, PT has educated on body mechanics consistently which pt is able to demonstrate safely in clinic. Pt wanting to discharge from PT today as he has met all goals and is back to all activity. He reports greater confidence in abilities to perform activities safely and with good form. PT educated pt on returning to PCP if symptoms return, change, or worsen or for new PT referral. Pt verbalizes understanding. Issued maintenance HEP to be performed 3x/wk, which PT educated pt about. Pt discharged to independent exercise. Physical Therapy Plan Frequency and Duration Frequency of Treatment 1x/Week Duration of treatment (weeks) 10 Plan of Care Start Date 05/04/23 Plan of Care End Date 07/13/23 Therapeutic Interventions Therapeutic Interventions Aquatic Therapy,Balance Training,Coordination Training ,Gait Training,Home Exercise Program,Joint Mobilizations, Manual Therapy,Neuromuscular Re-education,Orthotic/ Prosthetic Management,Patient/ Caregiver Education,Self-Care/ Home Management,Sensory Integration,Soft Tissue Mobilization,Taping, Therapeutic Activities, Therapeutic Exercises Modalities Cold Pack/Ice Massage,Electric Stimulation,Hot Packs, Traction- Mechanical, Ultrasound,Vasopneumatic Devices Discharge Physical Therapy Discharge Reasons Goals Met Discharge Comments Pt requesting d/c at end of plan of care today. All goals met, pt pain free for several weeks. Next Visit Focus/Plan Next Visit Plan Discharge from PT services
== END 2023-07-19 08:07 | disposition home or self-care (01) ==
LOC: PHYS 13:45
PROVIDERS: Family Provider Physician Assistant; PCP Physician Assistant; Referring Provider Physician Assistant; Visit Provider Physician Assistant
DX: R10.9 Unspecified abdominal pain (principal); M54.50 Low back pain, unspecified; M54.9 Dorsalgia, unspecified
CPT/HCPCS: 97110; 97140; 97161; 97535

== ENCOUNTER 2023-07-24 06:55 | Emergency (ER) | payer OTHER, MEDICAID, SELFPAY ==
[2023-07-24 07:05] VITALS: BP 132/90; PULSE 64; RESP 16; TEMP 36.5; O2SAT 100; BMI 23.7
--- NOTE | 2023-07-24 07:26 | ED.SKABFB ---
HPI - Skin/Abscess/Foreign Bdy General Chief complaint: Skin/Abscess/Foreign Body Stated complaint: boil on top of head Time Seen by Provider: 07/24/23 07:13 Source: patient Mode of arrival: Ambulatory History of Present Illness HPI narrative: Patient here with mother complains cyst/abscess/pimple on the scalp at the hairline right of midline, frontal. Patient states tetanus is up-to-date. This started about 3 days ago. He did try squeezing it but nothing came out. Related Data Previous Rx's Medication Instructions Recorded omeprazole 20 mg capsule,delayed 20 mg PO DAILY #30 caps 03/01/22 release benzonatate 100 mg capsule 100 mg PO BID PRN cough #20 caps 06/22/22 prednisone 20 mg tablet 20 mg PO DAILY #5 tabs 12/23/22 doxycycline monohydrate 100 mg 100 mg PO BID #14 caps 07/24/23 capsule Allergies Allergy/AdvReac Type Severity Reaction Status Date / Time bee venom protein (honey bee) Allergy Intermediate swelling Verified 06/22/22 07:14 and hives diclofenac Allergy Intermediate Hives Verified 12/23/22 01:11 Review of Systems Review of Systems Narrative: GENERAL: negative chills, fatigue, malaise, fever, sweats. HEENT: negative sinus pain, ear pain, sore throat RESPIRATORY: negative dyspnea, cough CARDIOVASCULAR: negative chest pain, palpitations GASTROINTESTINAL: negative nausea, vomiting, abdominal pain : negative dysuria, frequency, hematuria MUSCULOSKELETAL: negative muscle or bony pain SKIN: negative rash, skin lesions, positive skin wound NEUROLOGIC: negative weakness, numbness ROS Unobtainable: All systems reviewed & are unremarkable except as noted in HPI and below Patient History Medical History Pancreatitis History of bipolar disorder Fracture (~2020) Chronic back pain (~2019) Chicken pox (~1999) Herpes (~2014) Asthma (~1999) Generalized anxiety disorder (~2019) Family History Mother Hypertension Grandfather History of heart disease Grandmother Influenza Grandfather Cancer Grandmother Cancer Social History Smoking Status: Former smoker substance use type: marijuana Smoking Status: Former smoker tobacco type: smokeless tobacco alcohol intake frequency: holidays/special occasions only Alcohol type: hard liquor Substance Use Type: marijuana Exam Narrative Exam Narrative: GENERAL: in no distress, not toxic not dyspneic HEAD: Normocephalic. EYES: Pupils equal round NEURO: AOx4. SKIN: Warm and dry, right frontal scalp at the hairline there is a 4 mm diameter ?pimple?/cyst/abscess, small fluctuant area at the front of it.. Mild tender to touch. No surrounding crepitus. No lymphangitis. PSYCH: Is anxious, is cooperative Initial Vital Signs Initial Vital Signs: Vital Signs Temperature 97.7 F 07/24/23 07:05 Pulse Rate 64 07/24/23 07:05 Respiratory Rate 16 07/24/23 07:05 Blood Pressure 132/90 07/24/23 07:05 Pulse Oximetry 100 07/24/23 07:05 Oxygen Delivery Method Room Air 07/24/23 07:05 Procedures Abscess I/D I&D #1: Time of procedure: 07:32 Site: scalp Side (if applicable): right Local Anesthetic: other anesthetic (Done required) Technique: needle aspiration Amount of fluid expressed (mL): 0.25 Irrigation: Yes Packing used?: none Complications: other (No complications. Bacitracin applied. Very scant amount of pus out of the abscess.) Course Orders Ordered: Discontinued Medications Bacitracin (Bacitracin Oint 0.9 Gm Pckt) 1 applic TOP NOW ONE Stop: 07/24/23 07:26 Last Admin: 07/24/23 07:38 Dose: 1 applic Documented By: ASIM Diphtheria/Tetanus/Acell Pertussis (Tet,Diph,Pertuss(Acell),Vac/Pf 0.5 Ml Syringe) 0.5 ml IM .ONCE ONE Stop: 07/24/23 07:18 Last Admin: 07/24/23 07:27 Dose: Not Given Documented By: ASIM Doxycycline Hyclate (Doxycycline Hyclate 100 Mg Tablet) 100 mg PO NOW ONE Stop: 07/24/23 07:18 Last Admin: 07/24/23 07:37 Dose: 100 mg Documented By: ASIM Vital Signs Vital signs: Vital Signs - 8 hr 07/24/23 07:05 Temperature 97.7 F Pulse Rate 64 Respiratory Rate 16 Blood Pressure 132/90 Pulse Oximetry 100 Oxygen Delivery Method Room Air MDM - Skin/Abscess/Foreign Bdy MDM Narrative Medical decision making narrative: Patient here with mother complains cyst/abscess/pimple on the scalp at the hairline right of midline, frontal. Patient states tetanus is up-to-date. This started about 3 days ago. He did try squeezing it but nothing came out. After history and exam needle aspiration of the pimple. Wound culture. Doxycycline. [facility] Medical records reviewed: No recent visit for this complaint Differential considered: Includes but not limited to pimple cutaneous abscess sebaceous cyst Lab Test results independently reviewed as above. Pertinent findings: Culture sent Treatments: Doxycycline Re-evaluations: Patient states he does have a family doctor to follow up with. Wound care instructions provided. Return precautions reviewed. He desires discharge home Discussion: Appropriate for discharge home. Culture obtained. Antibiotics started. Return precautions reviewed. Wound care instructions provided. He desires discharge home. He does have a family doctor to follow up with. Diagnosis: Cutaneous abscess Discharge Plan Departure Patient Disposition: Home Clinical Impression: Abscess of skin or subcutaneous tissue Qualifiers: Site of cutaneous abscess: head Qualified Code(s): L02.811 - Cutaneous abscess of head [any part, except face] Instructions: DI for Skin Abscess Activity Restrictions/Additional Instructions: Please see your family doctor within a week for re-evaluation. Please clean the skin wound daily with warm soap and water and apply thin layer of topical antibiotic. Please keep area out of sun exposure. No swimming or submersion of the head under water. You may shower. Prescription medication has been sent to your pharmacy/antibiotics to continue today. Return if worse if any questions or concerns Prescriptions: New doxycycline monohydrate 100 mg capsule 100 mg PO BID Qty: 14 0RF No Action benzonatate 100 mg capsule 100 mg PO BID PRN (Reason: cough) Qty: 20 0RF omeprazole 20 mg capsule,delayed release(DR/EC) 20 mg PO DAILY Qty: 30 11RF prednisone 20 mg tablet 20 mg PO DAILY Qty: 5 0RF Rx Instructions: administer with food or milk Referrals: Antonina Rizzo PA-C [Primary Care Provider] - Stand Alone Forms: Patient Portal/API
[2023-07-24] MEDS: DOXYCYCLINE HYCLATE 100 MG TABLET PO (07:37)
[2023-07-24] MEDS: BACITRACIN OINT 0.9 GM PCKT 1 APPLIC TOP (07:38)
== END 2023-07-24 07:43 | disposition home or self-care (01) ==
PROVIDERS: Emergency Provider Emergency Medicine; Family Provider Physician Assistant; PCP Physician Assistant
DX: L02.811 Cutaneous abscess of head [any part, except face] (principal)
CPT/HCPCS: 10060; 87070; 87205; 99283

== ENCOUNTER 2023-11-08 06:46 | Emergency (ER) | payer OTHER, MEDICAID, SELFPAY ==
[2023-11-08 06:53] VITALS: BP 122/75; PULSE 77; RESP 16; TEMP 36.6; O2SAT 96; BMI 23.6
--- NOTE | 2023-11-08 07:04 | ED.GENADULT ---
HPI - General Adult General Chief complaint: Shortness of Breath/Dyspnea Stated complaint: coughing up blood Time Seen by Provider: 11/08/23 07:03 Source: patient Mode of arrival: Ambulatory Limitations: no limitations History of Present Illness HPI narrative: 28-year-old male who presents with complaint of hemoptysis after vaping marijuana. Patient states that he vaped had an episode of coughing which he describes as pretty strong. And coughed up several phlegmy balls with blood in them. States he has a little bit more coughing on the way here in the emergency department but no additional. This happened little over an hour prior to evaluation. Patient states he has not had any atypical bleeding in the past, he has not had hemoptysis in the past. Denies fevers or chills. Denies any bruising, epistaxis, atypical bleeding. He has some discomfort in his left axilla, states his chest feels a little heavy. This all started after the coughing fit. States he had a little bit of taste of blood in his mouth but no bleeding from his nose or mouth that he is aware of. No vomiting, no other GI symptoms. No black or bloody stools. No syncope. Patient states no daily medications, no anticoagulants, denies any prior surgeries. Allergic to diclofenac and bees. Uses smokeless tobacco, Zin, occasional alcohol, uses marijuana denies any recreational drugs. Related Data Previous Rx's Medication Instructions Recorded omeprazole 20 mg capsule,delayed 20 mg PO DAILY #30 caps 03/01/22 release benzonatate 100 mg capsule 100 mg PO BID PRN cough #20 caps 06/22/22 prednisone 20 mg tablet 20 mg PO DAILY #5 tabs 12/23/22 doxycycline monohydrate 100 mg 100 mg PO BID #14 caps 07/24/23 capsule Allergies Allergy/AdvReac Type Severity Reaction Status Date / Time bee venom protein (honey bee) Allergy Intermediate swelling Verified 06/22/22 07:14 and hives diclofenac Allergy Intermediate Hives Verified 12/23/22 01:11 Review of Systems Review of Systems ROS Unobtainable: All systems reviewed & are unremarkable except as noted in HPI and below Patient History Medical History Pancreatitis History of bipolar disorder Fracture (~2020) Chronic back pain (~2019) Chicken pox (~2000) Herpes (~2015) Asthma (~2000) Generalized anxiety disorder (~2019) Family History Mother Hypertension Grandfather History of heart disease Grandmother Influenza Grandfather Cancer Grandmother Cancer Social History Smoking Status: Former smoker substance use type: marijuana Smoking Status: Former smoker tobacco type: smokeless tobacco alcohol intake frequency: holidays/special occasions only Alcohol type: hard liquor Substance Use Type: marijuana Exam Narrative Exam Narrative: GEN: well nourished, well appearing male, alert and oriented x 3, patient appears to be in mild distress. HEENT: Atraumatic, pupils are equal round reactive to light, extraocular movements are intact, nares are clear, TMs are clear with no fluid, there is no conjunctival pallor. Throat is clear without any exudates, erythema, tonsillar enlargement or uvular deviation HEART: Regular rate and rhythm without murmur, clicks, rubs. LUNGS:Lungs clear to auscultation, no wheezes, rales, crackles, chest moves symmetrically, no tachypnea or accessory muscle use ABD:bowel sounds normal, soft, non-tender, no guarding, rebound, rigidity, no masses noted, no hepatosplenomegaly :No CVA tenderness MSCL: full range of motion, normal gait NEURO:CN 2-12 intact, sensation normal SKIN: No rash, erythema or petechiae Initial Vital Signs Initial Vital Signs: Vital Signs Temperature 97.8 F 11/08/23 06:53 Pulse Rate 77 11/08/23 06:53 Respiratory Rate 16 11/08/23 06:53 Blood Pressure 122/75 11/08/23 06:53 Pulse Oximetry 96 11/08/23 06:53 Oxygen Delivery Method Room Air 11/08/23 06:53 Course Orders Ordered: ED Orders 11/08/23 07:06 Chest [XR chest 2V] Stat Vital Signs Vital signs: Vital Signs - 8 hr 11/08/23 06:53 11/08/23 07:55 Temperature 97.8 F Pulse Rate 77 73 Respiratory Rate 16 16 Blood Pressure 122/75 128/83 Pulse Oximetry 96 97 Oxygen Delivery Method Room Air Room Air Medical Decision Making Imaging Data Chest x-ray: Radiologist's Impression: Fariha Lundberg??28??M??1995 ? Allergy/Adv: bee venom protein (honey bee), diclofenac (More??) Close Chest X-Ray (Signed) Emilio Penaloza - 11/08/23 Thoracic Spine X-Ray (Signed) Farley,Domingo - 04/28/22 Chest X-Ray (Signed) OliverUmang - 12/31/21 Abdomen Ultrasound (Signed) Jas Louis - 12/28/21 Hand X-Ray (Signed) Bib Gloria - 07/11/20 Toe X-Ray (Signed) Peter Chamberlain - 07/01/20 PFT Result 05/27/20 PFT Result 05/27/20 Skull X-Ray (Signed) Ryan Drake - 05/11/20 Skull X-Ray (Cancelled) 05/11/20 Lumbar Spine X-Ray (Signed) Ryan Drake - 05/11/20 Lumbar Spine X-Ray (Cancelled) 05/11/20 Chest X-Ray (Signed) No Walker - 11/30/19 Launch?[place] [address] XRay Report Signed Patient: Fariha Lundberg MR#: [id number] : 1995 Acct:[id number] Age/Sex: 28 / M Date of Service: 11/08/23 Loc: ED Accession Number: [id number] Procedure: XR chest 2V Ordering Provider: Alejandrina Cruz D.O. PROCEDURE: XR CHEST 2V INDICATIONS: coughed up blood after smoking weed TECHNIQUE: 2 views of the chest were acquired. COMPARISON: [facility], , XR CHEST 2V, 12/31/2021, 11:02. FINDINGS: Surgical changes and devices: None. Lungs and pleura: Lungs are clear. No pleural effusions or pneumothorax. Mediastinum: Mediastinal contours are normal. Heart size is normal. Bones and chest wall: No suspicious bony abnormalities. Soft tissues appear unremarkable. IMPRESSION: No acute cardiopulmonary pathology. Dictated by: Emilio Penaloza M.D. on 11/08/2023 at 8:12 Approved by: Emilio Penaloza M.D. on 11/08/2023 at 8:12 MDM Narrative Medical decision making narrative: Patient had episode of hemoptysis after coughing fit induced by vaping marijuana. Patient has not had other inappropriate episodes of bleeding or hemoptysis. Prelim chest x-ray shows no acute change. Patient defers waiting for formal read will call with follow up if there is any discrepancy between prelim read and formal read. Patient's vitals here has been appropriate he has not had any additional episodes since. Discussed return precautions all questions answered. Formal read as negative. Discharge Plan Departure Patient Disposition: Home Clinical Impression: Hemoptysis Instructions: DI for Hemoptysis Activity Restrictions/Additional Instructions: Follow up for recheck if you have any recurrent episodes of hemoptysis or coughing up blood. Smoking and vaping can cause damage to the lungs side so I would recommend stopping. Please return for fevers, new or worsening chest pain, shortness of breath, lightheadedness or passing out, continuing to cough up blood, any atypical bleeding, new or inappropriate bruising or bleeding or other new or concerning changes Prescriptions: No Action benzonatate 100 mg capsule 100 mg PO BID PRN (Reason: cough) Qty: 20 0RF omeprazole 20 mg capsule,delayed release(DR/EC) 20 mg PO DAILY Qty: 30 11RF prednisone 20 mg tablet 20 mg PO DAILY Qty: 5 0RF Rx Instructions: administer with food or milk doxycycline monohydrate 100 mg capsule 100 mg PO BID Qty: 14 0RF Referrals: Antonina Rizzo PA-C [Primary Care Provider] - Stand Alone Forms: Patient Portal/API
--- NOTE | 2023-11-08 07:16 | PC.NURSE ---
Reports this morning around 0630 used a few puffs of his vape pen which has been a normal habit for years, states he started coughing shortly after and was expectorating bright red blood sputum. States it lasted about 10 min and has resolved however is feeling slightly SOB. Pt is AAOx3 and appears well, managing secretions well, SPO2 99% RA, lungs clear in all cronin. Denies nausea and declined zofran. Denies recent illness. States has a pain in the L axilla/shoulder area. Adequate ROM and denies cardiac history. Pt taken for CXR and awaiting MD assessment. Resting supine on stretcher with NAD.
[2023-11-08 07:55] VITALS: BP 128/83; PULSE 73; RESP 16; O2SAT 97
== END 2023-11-08 07:57 | disposition home or self-care (01) ==
PROVIDERS: Emergency Provider Emergency Medicine; Family Provider Physician Assistant; PCP Physician Assistant
DX: R04.2 Hemoptysis (principal); F12.90 Cannabis use, unspecified, uncomplicated
CPT/HCPCS: 71046; 99283

== ENCOUNTER → 2024-02-16 11:14 | Outpatient (CLI) | payer OTHER, MEDICAID, SELFPAY ==
[2024-02-16 12:03] LABS: Influenza A - CEPHEID Flu A NEGATIVE (NEGATIVE); Influenza B - CEPHEID Flu B NEGATIVE (NEGATIVE); Respiratory Syncytial Virus POSITIVE (Negative)
[2024-02-16 12:05] LABS: COVID-19 CEPHEID 4-PLEX PCR Negative (Negative)
== END ==
PROVIDERS: Family Provider Physician Assistant; PCP Physician Assistant; Visit Provider Registered Nurse
DX: R05.1 Acute cough (principal); J01.00 Acute maxillary sinusitis, unspecified
CPT/HCPCS: 87635; 87400 ×2; 87420; 0241U

== ENCOUNTER 2024-05-04 12:32 | Emergency (ER) | payer OTHER, SELFPAY ==
[2024-05-04 13:09] VITALS: BP 133/90; PULSE 83; RESP 18; TEMP 37.2; O2SAT 99; BMI 26.5
--- NOTE | 2024-05-04 15:12 | ED.NAVMDI ---
HPI - Nausea/Vomiting/Diarrhea <Arlene Madsen PA-C - Last Filed: 05/04/24 17:30> General Chief complaint: Nausea/Vomiting/Diarrhea Stated complaint: Drank too much. HITESH unk. Feeling really sick. Time Seen by Provider: 05/04/24 14:41 Source: patient Mode of arrival: Ambulatory History of Present Illness HPI Narrative: Mr. Lundberg is a 28-year-old male who presents to the emergency department for headache, nausea, vomiting, ?feeling really sick? after drinking a large amount of alcohol last night. Patient states he was with friends last night and drank numerous beers and hard liquor. States this morning when he woke up he felt really sick which prompted his emergency department arrival. States that at this time during my examination he is actually feeling much better since he has been resting in the emergency department. Reports he is feeling very embarrassed and knows that he drank too much and that he should not do this again, but this feels worse than a normal hanging over. No pain or vomiting at this time. He ambulates independently. He does not drink daily and this was an abnormal binge drinking episode for him. He does smoke marijuana occasionally as well but denies any other drugs. Related Data Previous Rx's Medication Instructions Recorded clotrimazole 1 % topical cream 1 applic topical BID 2 weeks #45 04/26/24 grams valacyclovir 500 mg tablet 500 mg PO BID #60 tabs 04/26/24 ondansetron 4 mg disintegrating 4 mg PO Q8H PRN nausea and 05/04/24 tablet vomiting #10 tabs Allergies Allergy/AdvReac Type Severity Reaction Status Date / Time bee venom protein (honey bee) Allergy Intermediate swelling Verified 05/04/24 13:09 and hives diclofenac Allergy Intermediate Hives Verified 05/04/24 13:09 Review of Systems <Arlene Madsen PA-C - Last Filed: 05/04/24 17:30> Review of Systems ROS Unobtainable: All systems reviewed & are unremarkable except as noted in HPI and below Patient History <Arlene Madsen PA-C - Last Filed: 05/04/24 17:30> Medical History Pancreatitis History of bipolar disorder Fracture (~2020) Chronic back pain (~2019) Chicken pox (~1999) Herpes (~2014) Asthma (~1999) Generalized anxiety disorder (~2019) Family History Mother Hypertension Grandfather History of heart disease Grandmother Influenza Grandfather Cancer Grandmother Cancer Social History Smoking Status: Former smoker substance use type: marijuana Smoking Status: Former smoker tobacco type: smokeless tobacco alcohol intake frequency: holidays/special occasions only Alcohol type: beer and hard liquor Exam <Arlene Madsen PA-C - Last Filed: 05/04/24 17:30> Narrative Exam Narrative: GENERAL: 28 year old patient appears stated age. Well-developed patient, in no acute distress. HEAD: Atraumatic. Normocephalic. EYES: Extraocular motions intact. No scleral icterus. No injection or drainage. NECK: Trachea midline. Cervical ROM intact. CARDIOVASCULAR: Regular rate and rhythm. RESPIRATORY: ?Nonlabored respirations. ?Speaking in clear, full sentences. ?Clear to auscultation. Breath sounds equal bilaterally. No wheezes, rales, or rhonchi. ? GASTROINTESTINAL: Abdomen soft, non-tender, nondistended. Normal bowel sounds. EXTREMITIES: No edema or joint tenderness. NEURO: AOx3. ?Clear speech. ?Moves all 4 extremities appropriately. SKIN: No rash or erythema of visible areas Initial Vital Signs Initial Vital Signs: Vital Signs Temperature 98.9 F 05/04/24 13:09 Pulse Rate 83 05/04/24 13:09 Respiratory Rate 18 05/04/24 13:09 Blood Pressure 133/90 05/04/24 13:09 Pulse Oximetry 99 05/04/24 13:09 Oxygen Delivery Method Room Air 05/04/24 13:09 <Alejandrina Gomez MD - Last Filed: 05/04/24 17:46> Initial Vital Signs Initial Vital Signs: Vital Signs Temperature 98.9 F 05/04/24 13:09 Pulse Rate 83 05/04/24 13:09 Respiratory Rate 18 05/04/24 13:09 Blood Pressure 133/90 05/04/24 13:09 Pulse Oximetry 99 05/04/24 13:09 Oxygen Delivery Method Room Air 05/04/24 13:09 Course <Arlene Madsen PA-C - Last Filed: 05/04/24 17:30> Orders Ordered: Discontinued Medications Ondansetron HCl (Ondansetron 4 Mg Odt) 4 mg SL NOW ONE Stop: 05/04/24 15:22 Last Admin: 05/04/24 15:50 Dose: 4 mg Documented By: SB Vital Signs Vital signs: Vital Signs - 8 hr 05/04/24 13:09 05/04/24 16:20 Temperature 98.9 F Pulse Rate 83 84 Respiratory Rate 18 16 Blood Pressure 133/90 137/89 Pulse Oximetry 99 97 Oxygen Delivery Method Room Air Room Air <Alejandrina Gomez MD - Last Filed: 05/04/24 17:46> Orders Ordered: Discontinued Medications Ondansetron HCl (Ondansetron 4 Mg Odt) 4 mg SL NOW ONE Stop: 05/04/24 15:22 Last Admin: 05/04/24 15:50 Dose: 4 mg Documented By: SB Vital Signs Vital signs: Vital Signs - 8 hr 05/04/24 13:09 05/04/24 16:20 Temperature 98.9 F Pulse Rate 83 84 Respiratory Rate 18 16 Blood Pressure 133/90 137/89 Pulse Oximetry 99 97 Oxygen Delivery Method Room Air Room Air MDM - Nausea/Vomiting/Diarrhea <Arlene Madsen PA-C - Last Filed: 05/04/24 17:30> Medical Records Attestation: I reviewed the patient's medical records. MDM Narrative Medical decision making narrative: 28-year-old male who presents to the emergency department for headache, nausea, vomiting, ?feeling really sick? after drinking a large amount of alcohol last night. Differential diagnosis includes but is not limited to alcohol intoxication, adverse effects of alcohol, gastritis, gastroenteritis, etc. On exam the patient is in no acute distress, nontoxic-appearing, all vital signs within normal limits. He is feeling much better at my time of examination. Abdomen soft and nontender. Good insight and judgment. Patient's symptoms consistent with the adverse effects of alcohol. We will treat with a dose of Zofran and oral fluids in the emergency department. Recommended rest, hydration with Pedialyte, Zofran if needed for nausea and vomiting, abstaining from alcohol especially binge drinking. Patient verbalized understanding of all information and is very apologetic. Patient tolerating p.o. after Zofran, his mom is here to take him home. He is stable for discharge home. Discharge Plan Departure Patient Disposition: Home Clinical Impression: Adverse effect of alcohol Instructions: DI for Vomiting -- Adult Activity Restrictions/Additional Instructions: Dear Mr. Lundberg, Thank you for coming to the emergency department today. Your physical exam and your vital signs were all normal. Your symptoms are likely the result of too much alcohol consumption. You were provided with nausea medicine in the emergency department. It is very important to hydrate with water and Pedialyte to prevent dehydration. Use prescribed nausea medicine if needed. Please avoid drinking alcohol especially binge drinking alcohol as this can cause permanent damage to your liver and also irritate the stomach lining which can be very painful. Please follow up with your primary care doctor within the next 2-3 days for ER follow-up. (If you do not have a PCP you can call [phone]. ?to schedule an appointment with an [facility] Primary Care Provider) IF YOU DEVELOP ANY NEW OR WORSENING SYMPTOMS, RETURN TO THE ER! Please read the attached instructions, they highlight more specific treatments and interventions for you at home. Thank you for letting me participate in your care, Arlene Madsen PA-C Prescriptions: New ondansetron 4 mg tablet,disintegrating 4 mg PO Q8H PRN (Reason: nausea and vomiting) Qty: 10 0RF No Action valacyclovir 500 mg tablet 500 mg PO BID Qty: 60 0RF Rx Instructions: Use twice daily for 3 days for active infection. Use once daily for prophylaxis. clotrimazole 1 % cream 1 applic topical BID 14 Days Qty: 45 1RF Referrals: Antonina Rizzo PA-C [Primary Care Provider] - Stand Alone Forms: Patient Portal/API/Survey ED Sign-out <Alejandrina Gomze MD - Last Filed: 05/04/24 17:46> Cosign ED Attending Cosignature Attestation: I did not see this patient. I was available all times for consultation.
[2024-05-04] MEDS: ONDANSETRON 4 MG ODT SL (15:50)
[2024-05-04 16:20] VITALS: BP 137/89; PULSE 84; RESP 16; O2SAT 97
== END 2024-05-04 16:20 | disposition home or self-care (01) ==
PROVIDERS: Emergency Provider Physician Assistant; Family Provider Physician Assistant; PCP Physician Assistant
DX: R51.9 Headache, unspecified (principal); R11.2 Nausea with vomiting, unspecified; T78.8XXA Other adverse effects, not elsewhere classified, initial encounter; F12.90 Cannabis use, unspecified, uncomplicated; F10.90 Alcohol use, unspecified, uncomplicated; F17.210 Nicotine dependence, cigarettes, uncomplicated
CPT/HCPCS: 99283

== ENCOUNTER 2024-11-16 10:08 | Emergency (ER) | payer OTHER, SELFPAY ==
[2024-11-16] VITALS (9 sets, daily range): BP systolic 116–155; BP diastolic 64–90; PULSE 73–110; RESP 8–18; TEMP 36.8; O2SAT 95–98; BMI 25.8
[2024-11-16] MEDS: diphenhydrAMINE 50 MG/ML VIAL 25 MG IV (10:20)
[2024-11-16] MEDS: OXYCODONE/ACETAMINOPHEN 5/325 TABLET 1 TAB PO (11:51)
--- NOTE | 2024-11-16 12:03 | PC.NURSE ---
Pt c/o pain in his lip. felling like his cheek is swollen,. I looked into his airway. maintaining airway. no swelling inside mouth. able to swallow water.
--- NOTE | 2024-11-16 12:32 | ED_ITS ---
HPI - Allergic Reaction General Chief complaint: Allergic Reaction Stated complaint: Anaphylaxis/Bee Sting Time Seen by Provider: 11/16/24 10:10 Source: patient Mode of arrival: Ambulatory History of Present Illness HPI narrative: 29-year-old gentleman who has had significant swelling but not out right anaphylaxis with bee stings previously had a B fly into his mouth and sting the buccal surface of his lower lip. He was able to pull the stinger out and presents with severe swelling of the lower lip, no tongue involvement no posterior pharynx involvement and no acute dyspnea. Related Data Previous Rx's ?Medication ?Instructions ?Recorded clotrimazole 1 % topical cream 1 applic topical BID 2 weeks #45 04/26/24 grams valacyclovir 500 mg tablet 500 mg PO BID #60 tabs 04/09 12/01 ondansetron 4 mg disintegrating 4 mg PO Q8H PRN nausea and 05/04/24 tablet vomiting #10 tabs oxycodone-acetaminophen 5 mg-325 1 tab PO Q6H PRN pain #10 tabs 11/16/24 mg tablet prednisone 20 mg tablet 20 mg PO DAILY #3 tabs 11/16 Allergies Allergy/AdvReac Type Severity Reaction Status Date / Time bee venom protein (honey bee) Allergy Intermediate swelling Verified 11/16/24 10:16 and hives diclofenac Allergy Intermediate Hives Verified 11/16/24 10:16 Patient History Medical History Pancreatitis History of bipolar disorder Fracture (~2020) Chronic back pain (~2019) Chicken pox (~1999) Herpes (~2014) Asthma (~1999) Generalized anxiety disorder (~2019) Family History Mother Hypertension Grandfather History of heart disease Grandmother Influenza Grandfather Cancer Grandmother Cancer Social History Smoking Status: Current every day smoker substance use type: marijuana Smoking Status: Current every day smoker tobacco type: cigarettes and smokeless tobacco alcohol intake frequency: holidays/special occasions only Alcohol type: beer and hard liquor Exam Initial Vital Signs Initial Vital Signs: Vital Signs Pulse Rate 110 H 11/16/24 10:10 Pulse Oximetry 98 11/16/24 10:10 General: Healthy appearing, quite anxious, complaining of significant pain with impressive lower lip swelling HEENT: Moist mucous membranes, normal sclera with reactive pupils, no swelling to posterior pharynx Neck: No adenopathy, no swelling down the anterior portion of the neck. Respiratory: Lungs are clear to auscultation, no wheezing Full and symmetrical air movement Cardiac: Regular rate and rhythm no murmurs no bruits Psych: Cooperative, appropriate insight and affect Course Orders Ordered: Discontinued Medications Diphenhydramine HCl (Diphenhydramine 50 Mg/Ml Vial) 25 mg IV NOW ONE Stop: 11/16/24 10:16 Last Admin: 11/16/24 10:20 Dose: 25 mg Documented By: ASIM Hydromorphone HCl (Hydromorphone Hcl 0.5 Mg/0.5 Ml Syringe) 0.5 mg IV NOW ONE Stop: 11/16/24 10:39 Last Admin: 11/16/24 10:49 Dose: 0.5 mg Documented By: JERAD Methylprednisolone (Methylprednisolone 125 Mg/2 Ml Vial) 125 mg IV NOW ONE Stop: 11/16/24 10:16 Last Admin: 11/16/24 10:20 Dose: 125 mg Documented By: ASIM Oxycodone/Acetaminophen (Oxycodone/Acetaminophen 5/325 Tablet) 1 tab PO NOW ONE Stop: 11/16/24 11:30 Last Admin: 11/16/24 11:51 Dose: 1 tab Documented By: JERAD Oxycodone/Acetaminophen (Oxycodone/Acetaminophen 5/325 Tablet) 2 tab PO NOW ONE Stop: 11/16/24 12:01 Vital Signs Vital signs: Vital Signs - 8 hr 11/16/24 10:10 11/16/24 10:11 11/16/24 10:11 Temperature Pulse Rate 110 H 102 H Respiratory Rate Blood Pressure 155/90 H Pulse Oximetry 98 97 Oxygen Delivery Method 11/16/24 10:16 11/16/24 10:30 11/16/24 10:30 Temperature 98.2 F Pulse Rate 96 H 95 H Respiratory Rate 16 17 Blood Pressure 155/90 H 127/64 Pulse Oximetry 98 98 Oxygen Delivery Method Room Air 11/16/24 11:00 11/16/24 11:00 11/16/24 11:30 Temperature Pulse Rate 73 80 Respiratory Rate 15 17 Blood Pressure 125/69 Pulse Oximetry 95 95 Oxygen Delivery Method 11/16/24 11:30 11/16/24 11:42 11/16/24 11:42 Temperature Pulse Rate 73 Respiratory Rate 8 L Blood Pressure 121/69 130/88 Pulse Oximetry 97 Oxygen Delivery Method 11/16/24 12:00 11/16/24 12:00 Temperature Pulse Rate 82 Respiratory Rate 17 Blood Pressure 121/67 Pulse Oximetry 96 Oxygen Delivery Method Room Air MDM - Allergic Reaction MDM Narrative Medical decision making narrative: 29-year-old gentleman with significant localized reaction to bee stings actually had a B fly into his mouth with a sting on the buccal surface of the lower lip. Significant swelling. He is treated with IV Benadryl and Solu-Medrol on arrival. Closely watched and there is no indication that he is progressing to anaphylaxis or developing any respiratory symptoms. He was given half a mg of Dilaudid and 1 Percocet to help with the pain. Ice pack was placed. The lower lip swelling is slightly better with the edema spreading to the chin and angle of the jaw. Still no respiratory compromise or wheeze. He is feeling better. We discussed 3 additional days of oral prednisone to help with the inflammation and he is given a short prescription of Percocet to use for pain control. At this point without respiratory involvement we did discuss use of an EpiPen and together decided against it. No indication for further evaluation and workup and he is safe for discharge Discharge Plan Departure Patient Disposition: Home Clinical Impression: Allergic reaction to bee sting Activity Restrictions/Additional Instructions: Thank you for coming in today You had a fairly impressive allergic reaction to a bee sting simply because of where it was. Lips in the lower part of your face can get significantly swollen. Fortunately this does not appear to be an anaphylactic reaction, simply a significant localized reaction. You had no swelling in the back your throat there was no evidence of wheezing, we did not need to use epinephrine in the emergency department. With steroids and ice pack the swelling is going down, you were safe for discharge home. 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 Prescriptions: New prednisone 20 mg tablet 20 mg PO DAILY Qty: 3 0RF oxycodone-acetaminophen 5-325 mg tablet 1 tab PO Q6H PRN (Reason: pain) Qty: 10 0RF No Action valacyclovir 500 mg tablet 500 mg PO BID Qty: 60 0RF Rx Instructions: Use twice daily for 3 days for active infection. Use once daily for pro phylaxis. clotrimazole 1 % cream 1 applic topical BID 14 Days Qty: 45 1RF ondansetron 4 mg tablet,disintegrating 4 mg PO Q8H PRN (Reason: nausea and vomiting) Qty: 10 0RF Referrals: Antonina Rizzo PA-C [Primary Care Provider, Medical] Stand Alone Forms: Patient Portal/API
== END 2024-11-16 12:54 | disposition home or self-care (01) ==
PROVIDERS: Emergency Provider Emergency Medicine; Family Provider Physician Assistant; PCP Physician Assistant
DX: T63.441A Toxic effect of venom of bees, accidental (unintentional), initial encounter (principal)
CPT/HCPCS: 36415; 96374; 96375; 99284; J1171; J1200; J2919